=== PATIENT | male | born 1955 | race Caucasian/White ===

== ENCOUNTER 2018-12-03 07:01 | Day surgery (SDC) | payer BC ==
[~2018-12-03] VITALS: Ht 180.3 cm; Wt 94.8 kg
[~2018-12-03 07:01] MED LIST: ALBUTEROL SULF8.5 GM INH; AMLODIPINE BESY10 MG PO; BP MED PO; CENTRUM SILVER1 EAC1 PO; CHLORDIAZEPOXID25 MG PO; CHLORTHALIDONE25 MG PO; CIALIS20 MG PO; COZAAR100 MG PO; COZAAR25 MG PO; CRUTCH1 EACH; DEPO-TESTO200 MG/1 M IM; DILAUDID2 MG PO; FISH OIL 1,0001 EAC3 PO; FISH OIL300 MG PO; HYDROCHLOROTHIA25 MG; IBUPROFEN200 MG PO; LOSARTAN POTASS50 MG PO; LOVASTATIN20 MG PO; LOVASTATIN40 MG PO; NAPROXEN375 MG PO; NORCO 10-325 T1 EACH PO; OMEPRAZOLE20 MG PO; ONDANSETRON HCL4 MG PO; PERCOCET 10-321 EACH PO; POTASSIUM CHLO10 MEQ PO; SAW PALMETTO500 MG PO; SAW PALMETTO80 MG PO; TRAZODONE HCL50 MG PO; TYLENOL WITH C1 EACH; TYLENOL325 MG PO; VITAMIN D2000 UNIT PO; ZOFRAN ODT8 MG PO
[2018-12-03] MEDS ORDERED: DILAUDID2 MG PO (07:40)
--- NOTE | 2018-12-03 09:14 | NUR ---
12/03/18 0914 Belén Rodriguez 0903- PT ARRIVES TO PACU EASILY AROUSABLE TO VOICE. PT REPORTS NO NAUSEA, PAIN, OR DIZZINESS. RESP EVEN AND UNLABORED. OXYGEN SAT HIGH 90'S ON 2L VIA NC. 0909- OXYGEN TURNED OFF. OXYGEN SAT REMAINS HIGH 90'S ON RA. RESP EVEN AND UNLABORED. 0912- PT PASSING FLATUS.
--- NOTE | 2018-12-03 10:34 | NUR ---
PT ALERT, ORIENTED AND SUPPORTED BY HIS BENI. PT RECENTLY HAD AN EGD, AND STILL HAVING DISCOMFORT. PREP DEALT WITH WELL, NO OTHER CONCERNS. PT DID REQUEST PRAYER. WILL FOLLOW NEEDED
--- NOTE | 2018-12-05 11:43 | OR ---
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 POSTOPERATIVE DIAGNOSES: 1. Sigmoid diverticulosis. 2. No evidence of colitis or ileitis. PROCEDURE: Total colonoscopy to cecum with intubation of the ileum and multiple biopsies. ANESTHESIA: Intravenous sedation, fentanyl 150 mcg and versed 5 mg. INDICATION: This 63-year-old white man is a patient of MONISHA Waller and has seen Dr. Melecio Rivero for cholecystectomy in the past. 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 Endoscopic ultrasound by Dr. Scar Darnell at [facility] has shown multiple small cysts of the head of the pancreas. His CA-19-9 is normal and he has not thought likely to have neoplasm of the pancreas. He does have persistent diarrhea and although he has been treated with pancreatic enzyme, replacement therapy is only marginally improved. Further evaluation and treatment are anticipated at [facility] in the near future. A colonoscopy was recommended to ascertain that his diarrhea is not related to other underlying pathology. He has had colonoscopy in the past. The risks of bleeding, infection, perforation, and other unforeseen complications related to colonoscopy were reviewed in detail. He understands and wished to proceed. FINDINGS: The prep was good. Complete colonoscopy was undertaken of the cecum. Intubation of the ileum was undertaken and passage of the scope to about 10 cm beyond the ileocecal valve was noted. The ileum appeared normal. Biopsies were obtained nevertheless. Biopsies were additionally taken of the cecum and rectum. The remaining colon was free of polyps, cancer, or obvious colitis, though he had numerous diverticula of the sigmoid and left colon. Biopsies were obtained to ascertain there was no sign of lymphocytic Electronically Signed By: AZUL SMITH MD 12/05/18 1143 PATIENT NAME: JIA SOTO OPERATIVE REPORT DATE OF : 59 REPORT #: [id number] PHYSICIAN: AZUL SMITH MD PCP: ELIJAH OLIVAS REPORT IS CONFIDENTIAL AND NOT TO BE RELEASED WITHOUT AUTHORIZATION [facility] [address] [place], [place] [address] Signed colitis or other less clinically obvious colitis. DESCRIPTION OF PROCEDURE: The patient was brought to the endoscopy suite and placed in lateral decubitus position given intravenous sedation to the point of slurred speech and nystagmus. Digital rectal examination was normal. An Olympus video colonoscope was passed in the rectum and manipulated throughout the colon. Numerous diverticula were seen in the sigmoid and left colon. The scope was ultimately advanced to the cecum without problem. The ileocecal valve and appendiceal orifice were normal. Scope was manipulated into the ileum without too much trouble and the ileum appeared normal including intestinal villi. There was no sign of ulceration, stricture, or other problem. Biopsies were obtained nevertheless. The scope was then withdrawn to the cecum and biopsies taken of the cecum as well. Careful withdrawal of scope showed no sign of abnormality of colitis, polyps, or other issue other than numerous diverticula of the left colon and sigmoid. Retroflexed view of the rectum was normal as well. The scope was manipulated to allow for biopsy of the rectum in addition to his cecal biopsy. The scope was then removed and the patient was taken to recovery room in good condition. CONCLUDING DIAGNOSIS: Extensive diverticulosis. No evidence of colitis or ileitis. Most likely his diarrhea is related to pancreatic exocrine insufficiency after all. The patient will return to the ongoing care of MONISHA Waller as well as his [facility] team and others involved in his care previously. Azul Smith MD /MODL /[id number] cc: Dr. [facility] Dr. Landon Morrell Electronically Signed By: AZUL SMITH MD 12/05/18 1143 PATIENT NAME: JIA SOTO OPERATIVE REPORT DATE OF : 59 REPORT #: [id number] PHYSICIAN: AZUL SMITH MD PCP: ELIJAH OLIVAS REPORT IS CONFIDENTIAL AND NOT TO BE RELEASED WITHOUT AUTHORIZATION [facility] [address] [place] [address] Signed [facility] MONISHA Waller Copies: ELIJAH OLIVAS ~ Electronically Signed By: ZAUL SMITH MD 12/05/18 1143 PATIENT NAME: JIA SOTO OPERATIVE REPORT DATE OF : 59 REPORT #: [id number] PHYSICIAN: AZUL SMITH MD PCP: ELIJAH OLIVAS REPORT IS CONFIDENTIAL AND NOT TO BE RELEASED WITHOUT AUTHORIZATION
== END 2018-12-03 09:48 | disposition home or self-care (01) ==
LOC: DS 07:01 → OPS 07:01 → DS 14:15
PROVIDERS: Surgery
PROC: 0DBP8ZX Excision of Rectum, Via Natural or Artificial Opening Endoscopic, Diagnostic (ICD-10-PCS; 2018-12-03)
PROC: 0DBB8ZX Excision of Ileum, Via Natural or Artificial Opening Endoscopic, Diagnostic (ICD-10-PCS; 2018-12-03)
PROC: 0DBH8ZX Excision of Cecum, Via Natural or Artificial Opening Endoscopic, Diagnostic (ICD-10-PCS; principal; 2018-12-03 14:15)
DX: K57.31 Diverticulosis of large intestine without perforation or abscess with bleeding (principal); K86.89 Other specified diseases of pancreas; R19.7 Diarrhea, unspecified; K86.1 Other chronic pancreatitis; I10 Essential (primary) hypertension; K86.2 Cyst of pancreas; Z86.010 Personal history of colon polyps; Z88.8 Allergy status to other drugs, medicaments and biological substances
CPT/HCPCS: 99153; G0500; J2250; J3010; J7120

== ENCOUNTER 2019-03-31 04:15 | Emergency (ER) | payer BC ==
[~2019-03-31] VITALS: Ht 180.3 cm; Wt 91.6 kg
--- OUTSIDE RECORDS SUMMARY | ~2019-03-31 | XMS | Encounter Summary ---
Demographics + + + | Address | [address] | | | [place] [address] | + + + | Home Phone | | + + + | Preferred Language | Unknown | + + + | Marital Status | | + + + | Yarsanism Affiliation | CAT | + + + | Race | White | + + + | Ethnic Group | Not or | + + + Author + + + | Organization | Unknown | + + + | Address | Unknown | + + + | Phone | Unavailable | + + + Support + + + + + | Name | Relationship | Address | Phone | + + + + + | Johann Duvall | ECON | [address] | | | | | [address] | | | | | [address] | | + + + + + Care Team Providers + +------+ + | Care Culinary Intern Name | Role | Phone | + +------+ + PCP | Unavailable | + +------+ + Encounter Details +--------+ + + + + | Date | Type | Department | Care Team | Description | +--------+ + + + + | 09/14/ | Procedure - | | Record, Operation | Operative Report | | 1998 | | | | | | | Transcribed | | | | +--------+ + + + + Social History + +-------+ +--------+------+ | Tobacco Use | Types | Packs/Day | Years | Date | | | | | Used | | + +-------+ +--------+------+ | Never Assessed | | | | | + +-------+ +--------+------+ + + + | Sex Assigned at | Date Recorded | | | | + + + | Not on file | | + + + + + + + | Job Start Date | Occupation | Industry | + + + + | Not on file | Not on file | Not on file | + + + + + + + + | Travel History | Travel Start | Travel End | + + + + + + | No recent travel history available. | + + documented as of this encounter Plan of Treatment Not on filedocumented as of this encounter Procedures + +--------+ + + + | Procedure Name | Priori | Date/Time | Associated Diagnosis | Comments | | | ty | | | | + +--------+ + + + | OPERATION RECORD | | 09/14/1998 | | Results for this | | | | | | procedure are in the | | | | | | results section. | + +--------+ + + + documented in this encounter Results OPERATION RECORD (09/14/1998) + + | Transcriptions | + + | Interface, Orchard Worker In - 11/09/2006 5:09 AM PST | | [facility] [facility] | | [place], [place] [address] [place] | | [facility] HospitalOPERATION RECORDMed Rec No.: [id number] Date: | | 09/14/1998Name: Eden DuvallCHASITY SURGEON: Dahiana Timmons, | | Joana Auto Clocks Repairer, | | Ophthalmology Ph: [phone] Fax: | | [phone]: Benny Moore M.D. 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 2. Status post | | right inferioroblique myectomy.OPERATIONS PERFORMED: 1. Right | | Baljit-Yariel procedure (rightsuperior oblique | | tendon). 2. Left inferior rectus recession3.0 | | mm.SPECIMEN(S) REMOVED: None.PROCEDURE: After | | informed consent had beenobtained, Mr. Duvall was brought to the Operating Room | | and smoothly inducedunder general laryngeal mask airway anesthesia. Both eyes were | | prepped anddraped in the usual sterile fashion. Forced ductions were performed | | andthere was no resistance to elevation into adduction of either eye. Theleft eye | | was taped closed. A lid speculum was placed to part the righteyelids.A | | superotemporal conjunctival incision was made 8 mm posterior to thelimbus. | | Tenon's was opened perpendicular to the limbus, and a small hookwas used to gently | | engage the temporal pole of the superior rectus muscle.This was isolated on a Repton | | hook. Conjunctiva was opened further overthe muscle, and anterior Tenon's was gently | | removed using sharp dissection.The lid speculum was removed. A Desmarres retractor | | was used to open thequadrant. The eye was infraducted and adducted. The Desmarres was | | used toopen the quadrant along the temporal border of the superior rectus. Greatcare | | was taken to clean over the top of the muscle, but not disrupt thesuperior oblique. | | The superior oblique tendon was identified and 4 mm wereisolated on a small hook. The | | muscle was split to its insertion andposteriorly 6-8 mm total to the insertion. | | A double-armed 5-0 Mersilenewas passed under the muscle. The Ismael hook was | | removed from thesuperior rectus, and the lateral rectus was hooked from above | | through theincision. This was isolated on a Repton hook. Conjunctiva was | | pulledbackwards, and a noa 8 mm posterior to the insertion of the lateral rectuswas | | made on the sclera. The two spatula needles of the double-armedMersilene were | | then passed perpendicular to the superior border of thelateral rectus muscle via | | small scleral tunnels 8 mm posterior to theinsertion. The tendon was then | | tightened and brought over. It was tied inplace. Conjunctiva was then closed using | | interrupted 6-0 plain gut suture.Forced ductions were performed. There was slight | | resistance of elevationin adduction.Attention was then turned to the left eye where a | | fornix-based limbal flapwas fashioned over the inferior rectus. The quadrants around | | the musclewere opened using Gale scissors, and the muscle was isolated on | | aJameson hook. The muscle was cleaned back 15 mm of its intermuscularseptal and | | check ligament attachments, and released from its relationshipto the lower lid | | retractors. A double-armed 6-0 Vicryl was passed inlamellar fashion at the | | insertion, with a lock centrally and on the lateralmargins. The muscle was inserted | | from the globe and reinserted 3.0 mmposterior to the original insertion via | | shallow scleral tunnels. Themuscle was tied in place under direct visualization. | | Conjunctiva was thenclosed using interrupted 6-0 plain gut suture and was recessed 2 | | mm.At the end of the procedure, erythromycin ophthalmic ointment was appliedto each | | eye. The patient was awakened and extubated and taken to the PostAnesthesia Care Unit, | | having tolerated the procedure without complication. | | Dahiana Timmons M.D. Auto Clocks Repairer, | | Ophthalmology Ph: [phone] | | Fax: [phone]/bwD: 09/14/1998T: 09/15/1998 8:43 Acc: | |backwards, and a noa 8 mm posterior to the insertion of the lateral rectus | |was made on the sclera. The two spatula needles of the double-armed | |Mersilene were then passed perpendicular to the superior border of the | |lateral rectus muscle via small scleral tunnels 8 mm posterior to the | |insertion. The tendon was then tightened and brought over. It was tied in | |place. Conjunctiva was then closed using interrupted 6-0 plain gut suture. | |Forced ductions were performed. There was slight resistance of elevation | |in adduction. | | | |Attention was then turned to the left eye where a fornix-based limbal flap | |was fashioned over the inferior rectus. The quadrants around the muscle | |were opened using Gale scissors, and the muscle was isolated on a | |Ismael hook. The muscle was cleaned back 15 mm of its intermuscular | |septal and check ligament attachments, and released from its relationship | |to the lower lid retractors. A double-armed 6-0 Vicryl was passed in | |lamellar fashion at the insertion, with a lock centrally and on the lateral | |margins. The muscle was inserted from the globe and reinserted 3.0 mm | |posterior to the original insertion via shallow scleral tunnels. The | |muscle was tied in place under direct visualization. Conjunctiva was then | |closed using interrupted 6-0 plain gut suture and was recessed 2 mm. | | | |At the end of the procedure, erythromycin ophthalmic ointment was applied | |to each eye. The patient was awakened and extubated and taken to the Post | |Anesthesia Care Unit, having tolerated the procedure without complication. | | | | | | | | | | Dahiana Timmons M.D. | | Auto Clocks Repairer, | | Ophthalmology | | Ph: [phone] Fax: [phone] | | | |/bw | | | | A | | | |cc: | + + documented in this encounter Visit Diagnoses Not on filedocumented in this encounter"
--- OUTSIDE RECORDS SUMMARY | ~2019-03-31 | XMS | Encounter Summary ---
Demographics + + + | Address | [address] | | | [place] [address] | + + + | Home Phone | | + + + | Preferred Language | Unknown | + + + | Marital Status | | + + + | Judaism Affiliation | CAT | + + + | Race | White | + + + | Ethnic Group | Not or | + + + Author + + + | Author | [facility] | + + + | Organization | [facility] | + + + | Address | Unknown | + + + | Phone | Unavailable | + + + Support + + + + + | Name | Relationship | Address | Phone | + + + + + | Johann Duvall | ECON | [address] | | | | | [place] | | | | | [address] | | + + + + + Care Team Providers + +------+ + | Care Analysis Intern Name | Role | Phone | + +------+ + | Rosalind Nice | PCP | | + +------+ + Encounter Details +--------+ + + + + | Date | Type | Department | Care Team | Description | +--------+ + + + + | 02/17/ | Transcribe | Endoscopic | Transcribe | | | 2019 | Orders | Procedural Unit at | Encounter, Provider, | | | | | [facility] | MD [address] | | | | | [address] | [place] [address] | | | | | Mailcode: OC2L | | | | | | [facility] | | | | | | and Healing, | | | | | | [address] | | | | | | [place], [place] | | | | | | [address] | | | | | | [phone] | | | +--------+ + + + + Social History + +-------+ +--------+------+ | Tobacco Use | Types | Packs/Day | Years | Date | | | | | Used | | + +-------+ +--------+------+ | Never Smoker | | | | | + +-------+ +--------+------+ + +---+---+---+ | Smokeless Tobacco: | | | | | Never Used | | | | + +---+---+---+ + + +---------+ + | Alcohol Use | Drinks/Week | oz/Week | Comments | + + +---------+ + | Yes | | | 1-2 drinks per week | + + +---------+ + + + + | Sex Assigned at [...] Not on filedocumented as of this encounter Results ERCP (03/18/2019 7:54 AM PDT) + + | Specimen | + + | | + + + + + | Narrative | Performed At | + + + | MRN: | [facility] | | [id number] Date: 03/18/2019Patient Name: Jake Hunter #: | ENDOSCOPY | | [id number] of : 1955CSN: [id number] Type: | | | AmbulatoryRoom: GI 3Procedure: | | | ERCPIndications: Stent change; hx of severe abdominal | | | pain and severe diarrhea | | | (despite normalfecal elastase) since episode of | | | biliary pancraetitis in 2013; | | | no chronic panc on EUS | | | however some PD dilation; symptoms responded | | | significantly to PD stenting | | | of HOP PD strictureProviders: HOSSEIN Murphy | | | MD SCOTT (Doctor), RAUL PINTO (Nurse), | | | GENECREST BASCON | | | (Build Technician)Referring MD: HOSSEIN CHAVEZ, | | | MDRequesting Provider: Medicines: Cipro 400 mg IV, | | | Indomethacin 100 mg NE, Monitored | | | Anesthesia | | | CareComplications: No immediate | | | complications.Procedure: Pre-Anesthesia | | | Assessment: - ASA Grade | | | Assessment: II - A patient with mild | | | systemic | | | disease. - After reviewing the | | | risks and benefits, the patient | | | was deemed in satisfactory | | | condition to undergo the | | | procedure. Prior to the | | | procedure, a History and Physical with | | | airway assessment was | | | performed (see patient record), | | | and patient medications and | | | allergies were reviewed. The | | | risks and benefits of the procedure and the sedation | | | options and risks were | | | discussed. All questions were | | | answered and informed consent was obtained. After | | | reviewing the risks and | | | benefits, the patient was deemed | | | in satisfactory condition to | | | undergo the procedure. | | | Immediately prior to administration of medications, the | | | patient was re-assessed for | | | adequacy to receive | | | sedatives. The heart rate, respiratory rate, oxygen | | | saturations, blood pressure, | | | adequacy of pulmonary | | | ventilation, and response to care were monitored | | | throughout the procedure. The | | | physical status of the | | | patient was re-assessed after the | | | procedure. The Olympus | | | TJF-[id number] Duodenoscope #[id number] was | | | introduced through the mouth, | | | and advanced to the duodenum | | | and used to inject contrast into the dorsal and | | | ventral pancreatic ducts. The | | | ERCP was technically | | | difficult and complex due to unusual anatomy. The | | | patient tolerated the | | | procedure well.Estimated Blood Loss: Estimated blood loss: | | | none.Findings: A pancreatic stent was visible on the product marketing specialist | | | film. The esophagus was successfully intubated under direct | | | vision. The scope was advanced from the mouth to the | | | duodenum. The pharynx, larynx and associated structures, as | | | well as the upper GI tract, were normal. One pancreatic stent | | | originating in the pancreatic duct was emerging from the major | | | papilla. The stent was visibly patent. One stent was removed | | | from the pancreatic duct using a snare. The ventral | | | pancreatic duct was deeply cannulated with the short-nosed | | | traction sphincterotome. Contrast was injected. I personally | | | interpreted the pancreatic duct images. Ductal flow of | | | contrast was adequate. Image quality was excellent. Contrast | | | extended to the proximal pancreatic duct. The pancreatic duct was | | | markedly tortuous from the head through the genu. There was | | | segmental dilation of the MPD in the HOP 1 cm proximal to the | | | ampulla (diameter 4-5mm) ; proximal to this was a 1.5 cm | | | length stricture and marked tortuosity in the head of the | | | pancreas. Upstream, the PD was relatively normal, mildly | | | dilated to 3 mm. Advancement of the wire to the dorsal PD was | | | very challenging due to the tortuous main PD in the head and genu | | | with persistent wire advancement into side branches. There | | | was extraluminal contrast on the flouroscopy images | | | suggestive of wire RP penetration. The 0.25" visiglide wire | | | was effective in traversing the dorsal PD. Dilation of the | | | main pancreatic duct with a 4 mm balloon and a 6 mm balloon | | | dilator was successful in a layering fashion in the genu and | | | HOP. One 8.5 Fr by 15 cm Johlin pancreatic stent with no external | | | flaps and no internal flaps was placed 14 cm into the ventral | | | pancreatic duct. Clear fluid flowed through the stent. The | | | stent was in good position. I attempted to cannulate the PD | | | alongside the PD stent with a wire but was unable to keep the | | | wire in the main PD.Impression: - previously | | | placed PD stent removed - PD | | | stricture in head of the pancreas with marked main | | | PD tortuosity, it was | | | challenging to get the wire into | | | the dorsal PD due to | | | persistent side branch advancement, | | | resulting in retroperitoneal | | | contrast injection - Stricture | | | dilated to 6 mm and 85 Fr Johlin PD stent | | | placed into dorsal | | | PD - I was unable to keep a | | | 2nd wire in the main PD PD | | | alongside the PD stent to place a 2nd | | | stentRecommendation: admit to [facility] for post procedure pain | | | mgmt aggressive IVF with | | | LR Cipro x 5 days given RP | | | contrast injection D/c to home | | | once able to take po well I | | | will arrange a fu phone call in 3-4 weeks and repeat | | | ERCP in 8-12 weeksHOSSEIN Hoffman | | | MD SCOTT03/18/2019 9:47:24 AMNumber of Addenda: 0Note Initiated | | | On: 03/18/2019 7:54 [facility] Letter to: MONISHA BLACKMON | | + + + + +---------+ + + | Performing | Address | City/State/[place] [facility] Cent[facility] | Phone Number | | Organization | | | | + +---------+ + + | [facility] | | | | + +---------+ + + documented in this encounter Visit Diagnoses + + | Diagnosis | + + | Pancreatic duct stricture - Primary Other specified disease of pancreas | + + documented in this encounter
--- OUTSIDE RECORDS SUMMARY | ~2019-03-31 | XMS | Encounter Summary ---
Demographics + + + | Address | [address] | | | [place] [address] | + + + | Home Phone | | + + + | Preferred Language | Unknown | + + + | Marital Status | | + + + | Quaker Affiliation | CAT | + + + | Race | White | + + + | Ethnic Group | Not or | + + + Author + + + | Author | [facility] | + + + | Organization | [facility] | + + + | Address | Unknown | + + + | Phone | Unavailable | + + + Support + + + + + | Name | Relationship | Address | Phone | + + + + + | Johann Duvall | ECON | [address] | | | | | [place] | | | | | [address] | | + + + + + Care Team Providers + +------+ + | Care Motors Assembler Name | Role | Phone | + +------+ + | Rosalind Nice | PCP | | + +------+ + Reason for Visit + + + | Reason | Comments | + + + | Back pain | | + + + | Update from Patient | | + + + Encounter Details +--------+ + + + + | Date | Type | Department | Care Team | Description | +--------+ + + + + | 02/18/ | Telephone | [facility] | LisamercedezkirstyTraci | Back pain; Update | | 2018 | | Center at [facility] [address] | [address] | from Patient | | | | MACIEL Hui | [facility] | | | | | Mailcode: Center | [place], [place] | | | | | for [place] and | [address] | | | | | [facility] [address] | [phone] | | | | | [place], [place] | | | | | | [address] | | | | | | [phone] | | | +--------+ + + + [...] Not on filedocumented as of this encounter Visit Diagnoses Not on filedocumented in this encounter"
--- OUTSIDE RECORDS SUMMARY | ~2019-03-31 | XMS | Encounter Summary ---
Demographics + + + | Address | [address] | | | [place] [address] | + + + | Home Phone | | + + + | Preferred Language | Unknown | + + + | Marital Status | | + + + | Scientology Affiliation | CAT | + + + | Race | White | + + + | Ethnic Group | Not or | + + + Author + + + | Author | [facility] | + + + | Organization | [facility] | + + + | Address | Unknown | + + + | Phone | Unavailable | + + + Support + + + + + | Name | Relationship | Address | Phone | + + + + + | Johann Duvall | ECON | [address] | | | | | [place] | | | | | [address] | | + + + + + Care Team Providers + +------+ + | Care Manager Ob Name | Role | Phone | + +------+ + | Elijah Nice | PCP | | + +------+ + Encounter Details +--------+ + + + + | Date | Type | Department | Care Team | Description | +--------+ + + + + | 12/17/ | Inside | Endoscopic | Hossein Chavez | | | 2019 | Referral | Procedural Unit at | [facility] [address] | | | | Order | [facility] | [facility] | | | | | [address] | [place], [place] | | | | | Mailcode: OC2L | [address] | | | | | [facility] | [phone] | | | | | and Healing, | | | | | | [address] | | | | | | [place], [place] | | | | | | [address] | | | | | | [phone] | | | +--------+ + + + [...] filedocumented as of this encounter Results ERCP (01/18/2019 8:25 AM PDT) + + | Specimen | + + | | + + + + + | Narrative | Performed At | + + + | MRN: | [facility] | | [id number] Date: 01/18/2019Patient Name: Jake Hunter | ENDOSCOPY | | #: [id number] of : 1955CSN: [id number] Type: | | | AmbulatoryRoom: GI 3Procedure: | | | ERCPIndications: Abdominal pain of suspected | | | pancreatic origin, focal PD | | | dilation in the HOP, anticipated PD | | | stentingProviders: HOSSEIN CHAVEZ MD | | | (Doctor), DANIELLE XIONG RN | | | (Nurse), TRA WEST, RN (Nurse), GENECREST BASCON | | | (Animal Herder)Referring | | | MD: HOSSEIN CHAVEZ MDRequesting Provider: | | | Medicines: Indomethacin 100 mg UT, Monitored | | | Anesthesia CareComplications: No immediate | | | complications.Procedure: Pre-Anesthesia | | | Assessment: - ASA Grade | | | Assessment: II - A patient with mild | | | systemic | | | disease. - After reviewing the | | | risks and benefits, the patient | | | was deemed in satisfactory | | | condition to undergo the | | | procedure. - ASA Grade | | | Assessment: II - A patient with mild | | | systemic | | | disease. Prior to the | | | procedure, [...] The Olympus | | | [id number]-[id number] Duodenoscope #[id number] was | | | introduced through the mouth, | | | and advanced to the duodenum | | | and used to inject contrast into the dorsal and | | | ventral pancreatic ducts. The | | | ERCP was accomplished | | | without difficulty. The patient tolerated the procedure | | | well.Estimated Blood | | | Loss: Estimated blood loss: none.Findings: A neurology epilepsy physician | | | film of the abdomen was obtained. Surgical clips, consistent | | | with a previous cholecystectomy, were seen in the area of the right | | | upper quadrant of the abdomen. The esophagus was successfully | | | intubated under direct vision. The scope was advanced to a | | | normal major papilla in the descending duodenum without | | | detailed examination of the pharynx, larynx and associated | | | structures, and upper GI tract. The upper GI tract was | | | grossly normal. A 0.025 inch straight Glidewire was passed into the | | | ventral pancreatic duct. The ventral pancreatic duct was then | | | deeply cannulated with the short-nosed traction | | | sphincterotome. Contrast was injected. I personally | | | interpreted the pancreatic duct images. There was brisk flow | | | of contrast through the ducts. Image quality was excellent. | | | Contrast extended to the proximal pancreatic duct. The ventral | | | pancreatic duct in the head of the pancreas and pancreatic | | | duct in the genu of the pancreas was dilated segmentally to | | | 4-5 mm; there was some ductal irregularity in the region of | | | the HOP and genu. The PD in the body and tail were normal | | | appearing. A sphincterotome was passed with mild resistance | | | to the body across the genu. Ventral pancreatic | | | sphincterotomy was made with a traction (standard) sphincterotome. | | | There was no post-sphincterotomy bleeding. One 5 Fr by 9 cm | | | plastic pancreatic stent with a full external pigtail and a | | | single internal flap was placed into the ventral pancreatic | | | duct. Clear fluid flowed through the stent. The stent was in | | | good position.Impression: - Dilatation of the | | | ventral pancreatic duct in the head | | | and genu with mild | | | irregularity of the contour of the | | | MPD, PD sphincterotomy and PD | | | stent placed to see if his | | | abd pain symptoms respond - no | | | EUS evidence of chronic pancreatitis, hx of acute | | | biliary pancreatitis in | | | 2013 - normal fecal elastase | | | thus his diarrhea is not | | | pancreatic in origin and he has had no response to | | | pancreatic | | | enzymes - his diarrhea and abd | | | pain symptoms significantly | | | affect his quality of lifeRecommendation: - will admit for | | | post proc observation - no | | | labs needed - IVF, analgesia | | | as needed (has baseline narcotic use | | | for abd | | | pain) - I will arrange GI | | | phone call to patient in 2 weeks to | | | see if his pain has improved | | | with the PD stent; if so, | | | will bring back for repeat ERCP (dilation and stenting) | | | in 1 month; if not, will | | | arrange PD stent pull locally | | | with primary GI Dr Jamar Lam and fu with him to | | | further work up diarrhea and | | | abd pain as they are not | | | clearly related to the | | | pancreas - Cipro x 3 days for | | | panc cyst aspirationHOSSEIN CHAVEZ MD01/18/2019 10:26:34 AMNumber | | | of Addenda: 0Note Initiated On: 01/18/2019 8:25 [facility] Letter | | | to: MONISHA BLACKMON, Jamar Foreman MD, LINDSAY Cervantes | | | MD TALISHA | | + + + + +---------+ + + | Performing | Address | City/State/Zipcode | Phone Number | | Organization | | | | + +---------+ + + | [facility] | | | | + +---------+ + + EUS UPPER (01/18/2019 8:19 AM PDT) + + | Specimen | + + | | + + + + + | Narrative | Performed At | + + + | MRN: | [facility] | | [id number] Date: 01/18/2019Patient Name: Jake Hunter | ENDOSCOPY | | #: [id number] of : 1955CSN: [id number] Type: | | | AmbulatoryRoom: GI 3Procedure: Upper | | | EUSIndications: Exclusion of chronic pancreatitis; hx | | | of acute pancreatitis in | | | 2013, chronic and intermittent abd pain | | | and diarrhea; hx of cyst in | | | the HOP- unclear if | | | pseudocyst vs IPMNProviders: HOSSEIN CHAVEZ, | | | (Doctor), TRA GARCIA RN | | | (Nurse), DANIELLE XIONG RN | | | (Nurse), [employer] | | | (Animal Herder)Referring MD: HOSSEIN CHAVEZ, | | | MDRequesting Provider: Medicines: Monitored | | | Anesthesia Care, Cipro 400 mg IVComplications: No | | | immediate complications.Procedure: Pre-Anesthesia | | | Assessment: - ASA Grade | | | Assessment: II - A patient with mild | | | systemic | | | disease. Prior to the | | | procedure, [...] | procedure. The Olympus | | | [id number] Linear Echoendoscope #[id number] was | | | introduced through the mouth, | | | and advanced to the second | | | part of duodenum. The Olympus GIF-H190 Endoscope | | | #[id number] was introduced | | | through the mouth, and advanced | | | to the second part of | | | duodenum. The upper EUS was | | | accomplished without difficulty. The patient tolerated | | | the procedure well.Estimated | | | Blood Loss: Estimated blood loss: none.Findings: | | | Endoscopic Finding : Two small GEJ erosions found. The | | | exam of the stomach was otherwise normal. The major papilla | | | and examined duodenum were normal. Biopsies for histology | | | were taken with a cold forceps for evaluation of celiac | | | disease. Endosonographic Finding : Overall, the | | | pancreas is normal appearing without evidence of chronic | | | pancreatitis. There are a few non specific hyperechoic strands in the | | | genu/distal body area. The main PD measures 2.9 mm in the | | | genu, and 1.4 mm in the body of the pancreas. An | | | anechoic lesion suggestive of a cyst was identified in the pancreatic | | | head. it was compromised of 3 distinct small cysts that | | | measured 5.9, 4.6 and 9.5 mm in diameter; in total the cysts | | | together meaued 10.6 x 13.6 mm. It is not in obvious | | | communication with the pancreatic duct but is adjacent to it | | | near the ampulla. The PD inthe region measuded a maximum of | | | 4.4mm. The outer wall of the lesion was thin. There was no | | | associated mass. There was no internal debris within the fluid-filled | | | cavity. Diagnostic needle aspiration for fluid was performed. | | | Color Doppler imaging was utilized prior to needle puncture | | | to confirm a lack of significant vascular structures within | | | the needle path. Two passes were made with the 22 gauge | | | needle using a transduodenal approach. A stylet was used. The | | | amount of fluid collected was 2 mL. Sample(s) were sent for | | | amylase concentration and CEA. There was no sign of | | | significant endosonographic abnormality in the common bile | | | duct. The maximum diameter of the duct was 11 mm in the CHD | | | and it tapered to 6.5 mm in the distal | | | portion.Impression: - no evidence of chronic | | | pancreatitis, few non specific | | | hyperechoic strands, likely | | | clinically insignificanty 3 | | | small clustered cysts in the HOP near the ampulla, | | | distinct from the main PD, | | | s/p FNA for diagnosis- IPMN | | | vs pseudocyst, suspect the | | | latter - normal post op CBD | | | s/p oziel - LA Grade A reflux | | | esophagitis. - Normal major | | | papilla and examined duodenum. | | | Biopsied. - There was no sign | | | of significant pathology in the genu | | | of the pancreas, pancreatic | | | body and pancreatic tail. - A | | | cystic lesion was seen in the pancreatic head. Fine | | | needle aspiration for fluid | | | performed. - There was no sign | | | of significant pathology in the | | | common bile | | | duct.Recommendation: fu cluid | | | analysis cipro x 3 days given | | | cyst aspiration PPI | | | qday ERCP | | | now - Await path | | | results.HOSSEIN CHAVEZ MD01/18/2019 10:12:10 AMNumber of Addenda: | | | 0Note Initiated On: 01/18/2019 8:19 [facility] Letter to: ELIJAH | | | MONISHA NICE, LINDSAY WOODALL MD, Jamar Foreman MD | | + + + + +---------+ + + | Performing | Address | City/State/Zipcode | Phone Number | | Organization | | | | + +---------+ + + | [facility] | | | | + +---------+ + + documented in this encounter Visit Diagnoses + + | Diagnosis | + + | Recurrent acute pancreatitis - Primary Acute pancreatitis | + + | 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
--- OUTSIDE RECORDS SUMMARY | ~2019-03-31 | XMS | Encounter Summary ---
Demographics + + + | Address | [address] | | | [place] [address] | + + + | Home Phone | | + + + | Preferred Language | Unknown | + + + | Marital Status | | + + + | Mormonism Affiliation | CAT | + + + | Race | White | + + + | Ethnic Group | Not or | + + + Author + + + | Author | [facility] | + + + | Organization | [facility] | + + + | Address | Unknown | + + + | Phone | Unavailable | + + + Support + + + + + | Name | Relationship | Address | Phone | + + + + + | Johann Duvall | ECON | [address] | | | | | [place] | | | | | [address] | | + + + + + Care Team Providers + +------+ + | Care Creative Arts Music Therapist Name | Role | Phone | + +------+ + | Rosalind Nice | PCP | | + +------+ + Reason for Referral PROC - Dept/Practice Procedure (Routine) + +--------+ + + + + | Status | Reason | Specialty | Diagnoses / | Referred By | Referred To | | | | | Procedures | Contact | Contact | + +--------+ + + + + | Referred | | Gastroenterol | Diagnoses | [place], | [facility] | | | | ogy | Pancreatic | Traci Hoffman, | [facility] | | | | | duct | MD [address] | [address] [place] | | | | | stricture | [place] | [facility] | | | | | Procedures | [address] | Mailcode: | | | | | CONSULT TO | [place], [place] | [address] | | | | | GI | [address] | [place] | | | | | PROCEDURE: | Phone: | [address] | | | | | ERCP / | [phone] | [place], | | | | | BILIARY | Fax: | [place] [address] | | | | | [place] | [phone] | Phone: | | | | | | | [phone] | | | | | | | Fax: | | | | | | | [phone] | + +--------+ + + + + Encounter Details +--------+ + + + + | Date | Type | Department | Care Team | Description | +--------+ + + + + | 03/18/ | Insulation Mechanic | Digestive Health | Traci Brody | Pancreatic duct | | 2019 | | [facility] [address] | [facility] [place] [address] | stricture (Primary | | | | [address] | [address] | Dx) | | | | Mailcode: Center | [place], [place] | | | | | for Health and | [address] | | | | | [facility] | [phone] | | | | | [place], [place] | | | | | | [address] | | | | | | [phone] | | | +--------+ + + + + Social History + +-------+ +--------+------+ | Tobacco Use | Types | Packs/Day | Years | Date | | | | | Used | | + +-------+ +--------+------+ | Former Smoker | | | | | + [...] filedocumented as of this encounter Visit Diagnoses + + | Diagnosis | + + | 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
--- OUTSIDE RECORDS SUMMARY | ~2019-03-31 | XMS | Encounter Summary ---
Demographics + + + | Address | [address] | | | [place] [address] | + + + | Home Phone | | + + + | Preferred Language | Unknown | + + + | Marital Status | | + + + | Jainism Affiliation | CAT | + + + | Race | White | + + + | Ethnic Group | Not or | + + + Author + + + | Author | [facility] | + + + | Organization | [facility] | + + + | Address | Unknown | + + + | Phone | Unavailable | + + + Support + + + + + | Name | Relationship | Address | Phone | + + + + + | Johann Duvall | ECON | [address] | | | | | [place] | | | | | [address] | | + + + + + Care Team Providers + +------+ + | Care Business Account Manager Name | Role | Phone | + +------+ + | Rosalind Nice | PCP | | + +------+ + Reason for Visit + + + | Reason | Comments | + + + | Outside Records | DOS 01/18/19 [facility] Amylase reults; [facility]; Phone | | Received | [phone]; | + + + Encounter Details +--------+ + + + + | Date | Type | Department | Care Team | Description | +--------+ + + + + | 01/20/ | Abstract | Endoscopic | Traci Brody | Outside Records | | 2019 | | Procedural Unit at | [facility] [place] [address] [facility] | Received (DOS | | | | [place] [address] [facility] [address] | 01/18/19 [facility] | | | | [address] [facility] | [place], [place] | sis; [facility] | | | | Road Mailcode: | [address] | Diagnostics; Phone | | | | [address] [place] | [phone] | [phone]; Fax: | | | | [address] | | [phone]) | | | | [place], [place] | | | | | | [address] | | | | | | [phone] | | | +--------+ + + + [...]
--- OUTSIDE RECORDS SUMMARY | ~2019-03-31 | XMS | Encounter Summary ---
Demographics + + + | Address | [address] | | | [place] [address] | + + + | Home Phone | | + + + | Preferred Language | Unknown | + + + | Marital Status | | + + + | Sabianist Affiliation | CAT | + + + | Race | White | + + + | Ethnic Group | Not or | + + + Author + + + | Author | [facility] | + + + | Organization | [facility] | + + + | Address | Unknown | + + + | Phone | Unavailable | + + + Support + + + + + | Name | Relationship | Address | Phone | + + + + + | Johann Duvall | ECON | [address] | | | | | [place] | | | | | [address] | | + + + + + Care Team Providers + +------+ + | Care Charge Account Identification Clerk Name | Role | Phone | + +------+ + | Rosalind Nice | PCP | | + +------+ + Reason for Visit AUTH/CERT +--------+--------+ + + + + | Status | Reason | Specialty | Diagnoses / | Referred By | Referred To | | | | | Procedures | Contact | Contact | +--------+--------+ + + + + | | | | | | | +--------+--------+ + + + + Encounter Details +--------+ + + + + | Date | Type | Department | Care Team | Description | +--------+ + + + + | 01/18/ | Hospital | [place] [id number] | Traci Chavez | | | 2019 - | Encounter | [address] | MD [place] [address] | | | | | [facility] | [address] | | | 01/19/ | | [facility] [place], | [place], [place] | | | 2018 | | [place] [address] | [address] | | | | | [phone] | [phone] | | | | | | | | | | | | Renee Abad MD | | | | | | [address] | | | | | | [place], | | | | | | [place] [address] | | | | | | [phone] | | | | | | | | +--------+ + + [...] + + documented as of this encounter Last Filed Vital Signs + + + + + | Vital Sign | Reading | Time Taken | Comments | + + + + + | Blood Pressure | 152/81 | 01/19/2019 8:59 AM | | | | | PDT | | + + + + + | Pulse | 57 | 01/19/2019 8:59 AM | | | | | PDT | | + + + + + | Temperature | 36.6 C (97.9 F) | 01/19/2019 8:01 AM | | | | | PDT | | + + + + + | Respiratory Rate | 18 | 01/19/2019 8:59 AM | | | | | PDT | | + + + + + | Oxygen Saturation | 97% | 01/19/2019 9:02 AM | | | | | PDT | | + + + + + | Inhaled Oxygen | - | - | | | Concentration | | | | + + + + + | Weight | 93 kg (205 lb) | 01/18/2019 8:16 AM | | | | | PDT | | + + + + + | Height | 180.3 cm (5' 11") | 01/18/2019 8:16 AM | | | | | PDT | | + + + + + | Body Mass Index | 28.59 | 01/18/2019 8:16 AM | | | | | PDT | | + + + + + documented in this encounter Discharge Summaries Renee Abad MD - 01/19/2019 10:39 AM PDTFormatting of this note might be different from t he original. Clinical Hospitalist Service Discharge Summary [facility] Discharging Provider: Chantal Abad MD Discharging Attending Physician: Chantal Abad MD PCP: MONISHA Waller Admission Date: 01/18/2019 Discharge Date: 01/19/2019 Hospital Stay: 1 day(s) Discharge Disposition: Home Reason for Admission: 63 yo M with history of pancreatitis (2013) c/b chronic diarrhea and intermittent abdominal pain, HTN, BPH who presented for ERCP now admitted for post-ERCP monitoring. See admission note for full details of the initial history, exam, and data. Diagnoses: Patients Hospital Problem List: Active Hospital Problems 1) H/O acute pancreatitis 2) Pancreatic cyst 3) Hyperlipidemia 4) GERD (gastroesophageal reflux disease) 5) Diarrhea 6) HTN (hypertension) 7) Hypercarbia Procedures: EUS EGD Consultants (service/attending name): GI/Dr. Chavez Hospital Course by Problem: # Acute hypercarbic respiratory failure # Somnolence On intial examination he was mildly somnolent, but was mentating well and protecting his ai rway. VBG with respiratory acidosis. Received several pushes of IV dilaudid in PACU prior to transfer to the floor which was the likely cause of his somnolence and hypercarbia. Held al l opioids. Repeat VBG with improving pCO2. Did not require narcan. Overnight developed incre asing abdominal pain and given his improvement in respiratory status and mentation, low dose oral dilaudid was initiated. Continuous pulse oximetry kept on overnight as well. In mornin g, patient was back to his baseline and mentating well. Abdominal pain well controlled with oral dilaudid and he was instructed to continued his home dilaudid for prn pain control. - narcan kit ordered at discharge # Post-ERCP # Chronic diarrhea ERCP and EUS uncomplicated. Stent placed to pancreatic duct and duodenal biopsy taken. Was kept on LR maintenance fluids overnight and immediately was tolerating regular diet. Was sta rted on ciprofloxacin per GI for infection prophylaxis given pancreatic cyst aspiration. - complete ciprofloxacin 500 mg q 12 x 3 days - GI to call patient re pathology results after discharge # Sinus bradycardia # 1st deg AVB Bradycardic at baseline, although HR 40s is lower than usual. Suspect due to sedation from opioids. Held home antihypertensive overnight. In morning HR 50-60s, thus coreg discontinued at discharge. # HTN Normotensive and bradycardic to 40s on admission. EKG with sinus cheryl and 1st deg AVB. HTN meds held overnight. Restarted amlodipine and losartan at discharge. Coreg discontinued for persistent bradycardia (per review of outside clinic notes, he has been bradycardic to 50s consistently) Summary of items for PCP follow up: 1) BP off of carvedilol 2) GI regarding pathology results Outstanding or Pending Labs/Studies: Duodenal bx 01/18/19 Pertinent/significant findings as above in hospital course. See [facility] for additional details of labs, imaging, and other studies. EUS and ERCP done today EUS Impression: - no evidence of chronic pancreatitis, few non specific hyperechoic strands, likely clinically insignificanty 3 small clustered cysts in the HOP near the ampulla, distinct from the main PD, s/p FNA for diagnosis- IPMN vs pseudocyst, suspect the latter - normal post op CBD s/p oziel - LA Grade A reflux esophagitis. - Normal major papilla and examined duodenum. Biopsied. - There was no sign of significant pathology in the genu of the pancreas, pancreatic body and pancreatic tail. - A cystic lesion was seen in the pancreatic head. Fine needle aspiration for fluid performed. - There was no sign of significant pathology in the common bile duct. Recommendation: fu cluid analysis cipro x 3 days given cyst aspiration PPI qday ERCP now - Await path results. ERCP: Impression: - Dilatation of the ventral pancreatic duct in the head and genu with mild irregularity of the contour of the MPD, PD sphincterotomy and PD stent placed to see if his abd pain symptoms respond - no EUS evidence of chronic pancreatitis, hx of acute biliary pancreatitis in 2013 - normal fecal elastase thus his diarrhea is not pancreatic in origin and he has had no response to pancreatic enzymes - his diarrhea and abd pain symptoms significantly affect his quality of life Recommendation: - will admit for post proc observation - no labs needed - IVF, analgesia as needed (has baseline narcotic use for abd pain) - I will arrange GI phone call to patient in 2 weeks to see if his pain has improved with the PD stent; if so, will bring back for repeat ERCP (dilation and stenting) in 1 month; if not, will arrange PD stent pull locally with primary GI Dr Jamar Lam and fu with him to further work up diarrhea and abd pain as they are not clearly related to the pancreas - Cipro x 3 days for panc cyst aspiration Discharge Medications: Medication List START taking these medications acetaminophen 325 mg Tab Commonly known as: TYLENOL Take 2 tablets by mouth every four hours as needed. ciprofloxacin HCl 500 mg Tab Commonly known as: CIPRO Take 1 tablet by mouth two times daily. Indications: abdominal infection, post-ERCP prophyl axis lidocaine 5 % Ptmd Commonly known as: LIDODERM Apply 1 patch to skin every twenty-four hours. Patch may remain in place for up to 12 hours in any 24-hour period. naloxone 4 mg/actuation [place] Instill into nostril for opioid overdose. Repeat with second device into other nostril afte r 2-3 minutes if no or minimal response. CONTINUE taking these medications amLODIPine 10 mg Tab Commonly known as: NORVASC Take 10 mg by mouth. cholecalciferol 400 unit Tab Commonly known as: VITAMIN D-3 Take 1,000 Units by mouth once daily. CITRUCEL ORAL Take by mouth as needed. DILAUDID ORAL Take 2 mg by mouth as needed. FISH OIL 340-1,000 mg Cap Generic drug: Fish Oil-[place]-3 Fatty Acids Take 2,000 mg by mouth. IMODIUM ORAL Take by mouth as needed. losartan 100 mg Tab Commonly known as: COZAAR Take 100 mg by mouth. Melatonin 5 mg Tab Take 10 mg by mouth. MULTIVITAMIN-AMINO ACIDS ORAL Take by mouth. omeprazole 20 mg Cpdr Commonly known as: PRILOSEC Take 20 mg by mouth. ondansetron ODT 4 mg Tbdi Commonly known as: ZOFRAN ODT Dissolve 4 mg on tongue and swallow. Saw Ragan 500 mg Cap Take by mouth. sildenafil 100 mg Tab Commonly known as: VIAGRA Take 100 mg by mouth. STOP taking these medications carvedilol 25 mg Tab Commonly known as: COREG Rationale for Medication Changes: Carvedilol - Sinus bradycardia Allergies: Allergies Allergen Reactions Chlorthalidone Unknown Pancreatitis Code Status: Full POLST completed: no Additional Instructions: Condition on Discharge Good Diet Regular Regular diet- There are no restrictions to your diet. You may eat or drink whatever you pr efer, though healthy food choices are recommended. Activity No activity restrictions Follow Up: Schedule the following appointment(s) when you get home MONISHA WALLER . Specialty: Physician Microbiology Manager Contact information [address] [facility] [place] [id number] Discharge Physical Exam: Last 24 hour min/max Temp: 36.6 C (97.9 F) Temp Min: 36.3 C (97.3 F) Max: 36.6 C (97.9 F) Pulse: 57 Pulse Min: 49 Max: 59 Resp: 18 Resp Min: 8 Max: 18 BP: 152/81 BP Min: 111/71 Max: 166/95 SpO2: 97 % SpO2 Min: 96 % Max: 97 % Body mass index is 28.59 kg/m. Gen WDWN man, lying in bed, awake and alert HEENT PERRL, op clear, MMM Pulm cbta, no w/c/r CV Bradycardic but rr, no m/r/g, JVP non-elevated Abd soft, nt/nd, no hsm, no r/g Ext wwp, pulses 2+, no edema Neuro Alert and oriented x4 Psych TPo linear, TCo appropriately focused Skin no rash/skin changes EPIC DEPARTMENT: Hosp ([facility]) - [id number] Place of Service: - Date of Service: 01/19/2019 [facility] [id number] Modifiers:GC Resident Involved: No Service: PRIMARY HOSPITALIST Suggested CPT: 30539 Discharge Management > 30 minute I spent more than >30 minutes [id number] with the patient of which greater than 50% was s pent on discharge coordination. Chantal Abad MD Buyers' Agent Division of Hospital Medicine [facility] documented in this encou nter Discharge Instructions Instructions Enedina Garcia RN - 01/18/2019 documented in this encounter Medications at Time of Discharge + + + +---------+ + + | Medication | Sig | Dispensed | Refills | Start | End Date | | | | | | Date | | + + + +---------+ + + | acetaminophen 325 | Take 2 tablets by | 60 | 0 | 03// | | | mg oral tablet | mouth every four | tablet | | 19 | | | | hours as needed. | | | | | + + + +---------+ + + | amino | Take by mouth. | | 0 | | | | acids/multivitamin | | | | | | | (MULTIVITAMIN-AMINO | | | | | | | ACIDS ORAL) | | | | | | + + + +---------+ + + | amLODIPine 10 mg | Take 10 mg by mouth. | | 0 | | | | oral tablet | | | | | | + + + +---------+ + + | carvedilol 25 mg | Take 25 mg by mouth. | | 0 | 05/11/20 | | | oral tablet | | | | 18 | | + + + +---------+ + + | cholecalciferol | Take 1,000 Units by | | 0 | | | | 400 unit oral tablet | mouth once daily. | | | | | + + + +---------+ + + | lidocaine 5 % | Apply 1 patch to | 5 patch | 0 | 01/20/20 | | | topical adhesive | skin every | | | 19 | | | patch,medicated | twenty-four hours. | | | | | | | Patch may remain in | | | | | | | place for up to 12 | | | | | | | hours in any 24-hour | | | | | | | period. | | | | | + + + +---------+ + + | loperamide HCl | Take by mouth as | | 0 | | | | (IMODIUM ORAL) | needed. | | | | | + + + +---------+ + + | losartan 100 mg | Take 100 mg by | | 0 | 05/11/20 | | | oral tablet | mouth. | | | 18 | | + + + +---------+ + + | Melatonin 5 mg | Take 10 mg by mouth. | | 0 | | | | oral tablet | | | | | | + + + +---------+ + + | methylcellulose | Take by mouth as | | 0 | | | | (CITRUCEL ORAL) | needed. | | | | | + + + +---------+ + + | naloxone 4 | Instill into nostril | 2 each | 0 | / | | | mg/actuation nasal | for opioid | | | 19 | | | spray,non-aerosol | overdose. Repeat | | | | | | | with second device | | | | | | | into other nostril | | | | | | | after 2-3 minutes if | | | | | | | no or minimal | | | | | | | response. | | | | | + + + +---------+ + + | omeprazole 20 mg | Take 20 mg by mouth. | | 0 | | | | oral capsule,delayed | | | | | | | release(/EC) | | | | | | + + + +---------+ + + | ondansetron ODT 4 | Dissolve 4 mg on | | 0 | | | | mg oral | tongue and swallow. | | | | | | tablet,disintegratin | | | | | | | g | | | | | | + + + +---------+ + + | Saw Ragan 500 | Take by mouth. | | 0 | | | | mg oral capsule | | | | | | + + + +---------+ + + | sildenafil 100 mg | Take 100 mg by | | 0 | | | | oral tablet | mouth. | | | | | + + + +---------+ + + documented as of this encounter Progress Notes Traci Chavez MD - 01/18/2019 10:55 AM PDTBrief GI Procedure Note 01/18/2019 GI procedure performed. Procedure(s): EUS FNA and ERCP Please refer to GI procedure note imported under Procedures tab in Chart Review for full de tails of procedure, impression and recommendations. 63 y.o. M with hx of acute biliary and post procedure pancreatitis in 2013 with: 1) multicystic lesion in head of the pancreas: in the setting of prior biliary and post [employer] pancreatitis in 2013 in which he was found to have an inflammatory mass in the HOP s/p E US FNA; the ddx for this lesion is pseudocyst vs side branch IPMN; the main PD immediately a djacent is focally dilated on prior EUS and MRCP however there are no other significant worr isome features. I suspect that the cyst is an incidental finding and differentiating betwee n pseudocyst and IPMN is clinically significant for f/u here. So we will plan to repeat EUS FNA to sample the lesion with hopes to send it for redpath evaluation of CEA and amylase. E US can also take a closer look at the main PD dilation. 2) Recurrent abdominal pain: the nature of the pain is very similar to his pancreatitis sánchez n; he notes he has had multiple subsequent admissions to 2014 with diagnosis of acute pancre atitis but we do not have access to the prior lipases t ensure that they were 3x the ULNL. At present he intermittently takes dilaudid to help with the pain but this severely limits h is active lifestyle bc he avoids traveling alone in the event he has an unpredictable increa se in the pain. It is possible that PD stricture from prior pancreatitis is the cause of hi s pain in the setting of focally dilated main PD; a trial of a PD stent may help delineate i f this is the cause of his pain. This is not a low risk situation and we discussed risks of pancreatitis and need for admission etc but he feels very desperate that he wants to try so mething. 3) intermittent severe diarrhea episodes: he has had multiple medication trials, with citru marcel being the most helpful. The diarrhea has not responded to pancreatic enzyme supplementa tion; reproted elevated 72h fecal fat; given the poor test characteristics , I will order a fecal elastase to see if his diarrhea is pancreatic in nature. He has had a colonoscopy with negative biopsies and normal TTG. No significant medications implicated Fecal elastase was normal: therefore diarrhea is not pancreatic in nature EUS and ERCP done today EUS Impression: - no evidence of chronic pancreatitis, few non specific hyperechoic strands, likely clinically insignificanty 3 small clustered cysts in the HOP near the ampulla, distinct from the main PD, s/p FNA for diagnosis- IPMN vs pseudocyst, suspect the latter - normal post op CBD s/p oziel - LA Grade A reflux esophagitis. - Normal major papilla and examined duodenum. Biopsied. - There was no sign of significant pathology in the genu of the pancreas, pancreatic body and pancreatic tail. - A cystic lesion was seen in the pancreatic head. Fine needle aspiration for fluid performed. - There was no sign of significant pathology in the common bile duct. Recommendation: fu cluid analysis cipro x 3 days given cyst aspiration PPI qday ERCP now - Await path results. ERCP: Impression: - Dilatation of the ventral pancreatic duct in the head and genu with mild irregularity of the contour of the MPD, PD sphincterotomy and PD stent placed to see if his abd pain symptoms respond - no EUS evidence of chronic pancreatitis, hx of acute biliary pancreatitis in 2013 - normal fecal elastase thus his diarrhea is not pancreatic in origin and he has had no response to pancreatic enzymes - his diarrhea and abd pain symptoms significantly affect his quality of life Recommendation: - will admit for post proc observation - no labs needed - IVF, analgesia as needed (has baseline narcotic use for abd pain) - I will arrange GI phone call to patient in 2 weeks to see if his pain has improved with the PD stent; if so, will bring back for repeat ERCP (dilation and stenting) in 1 month; if not, will arrange PD stent pull locally with primary GI Dr Jamar Lam and fu with him to further work up diarrhea and abd pain as they are not clearly related to the pancreas - Cipro x 3 days for panc cyst aspiration Traci Chavez MD Gastroenterology Pager [phone] nestjoseph, Cm Hoffman MD - 01/18/2019 8:29 AM PDTFormatting of this note might be different from the origin al. PRE PROCEDURE NOTE: MR# [id number] Subjective: Jake Duvall is a 63 y.o. male who presents today for a GI procedure. Patient History Reviewed Medications reviewed Allergies: Allergies as of 12/24/2018 - Fully Reviewed 12/16/2018 Allergen Reaction Noted Chlorthalidone Unknown 05/08/2018 Pt NPO for 12 hrs. ROS: All others negative. Objective: Vital Signs: BP 117/76 | Pulse 52 | Temp 36.4 C (97.5 F) | Resp 17 | Ht 1.803 m (5' 11") | Wt 93 kg (205 lb) | SpO2 98% | BMI 28.59 kg/m | BSA 2.16 m Neuro: Patient oriented X3. Mental status clear and intact Mallampati Score: II Neck Neck supple. No adenopathy Respiratory: negative findings: no chest deformities noted, normal diaphragmatic excursion Cardiovascular: peripheral pulses are wnl, no edema Abdomen: nontender, no masses, no organomegaly Impression Patient deemed appropriate candidate for planned procedure and sedation. ASA 2 Plan Proceed with GI procedure PARQ held and all questions addressed. Consent obtained. See procedure note 01/18/2019 documented in th is encounter Plan of Treatment Not on filedocumented as of this encounter Procedures + +--------+ + + + | Procedure Name | Priori | Date/Time | Associated Diagnosis | Comments | | | ty | | | | + +--------+ + + + | BLOOD GASES, VENOUS | Urgent | 01/18/2019 | | Results for this | | - LAB | | 4:07 PM | | procedure are in the | | | | PDT | | results section. | + +--------+ + + + | 12 LEAD ECG | Routin | 01/18/2019 | | Results for this | | | e | 3:01 PM | | procedure are in the | | | | PDT | | results section. | + +--------+ + + + | BLOOD GASES, VENOUS | Urgent | 01/18/2019 | | Results for this | | - LAB | | 2:56 PM | | procedure are in the | | | | PDT | | results section. | + +--------+ + + + | CAPILLARY BLOOD | Routin | 01/18/2019 | Pancreatic cyst | Results for this | | GLUCOSE (NO CHG), | e | 2:12 PM | | procedure are in the | | POC | | PDT | | results section. | + +--------+ + + + | LAB OTHER | Routin | 01/18/2019 | | Results for this | | | e | 10:28 AM | | procedure are in the | | | | PDT | | results section. | + +--------+ + + + | SURGICAL PATHOLOGY | Routin | 01/18/2019 | | Results for this | | | e | 9:41 AM | | procedure are in the | | | | PDT | | results section. | + +--------+ + + + | ERCP | Routin | 01/18/2019 | Recurrent acute | Results for this | | | e | 8:25 AM | pancreatitis | procedure are in the | | | | PDT | Pancreatic cyst | results section. | + +--------+ + + + | EUS UPPER | Routin | 01/18/2019 | Recurrent acute | Results for this | | | e | 8:19 AM | pancreatitis | procedure are in the | | | | PDT | Pancreatic cyst | results section. | + +--------+ + + + | GI PROCEDURE UNIT | Routin | 01/18/2019 | | Results for this | | FLUOROSCOPY | e | 8:15 AM | | procedure are in the | | | | PDT | | results section. | + +--------+ + + + | CARDIOLOGY | | 01/18/2019 | | Results for this | | | | 12:00 AM | | procedure are in the | | | | PDT | | results section. | + +--------+ + + + | CARDIOLOGY | | 01/18/2019 | | Results for this | | | | 12:00 AM | | procedure are in the | | | | PDT | | results section. | + +--------+ + + + documented in this encounter Results BLOOD GASES, VENOUS - LAB (01/18/2019 4:07 PM PDT) + +--------+ + + + | Component | Value | Ref Range | Performed | Pathologist | | | | | At | Signature | + +--------+ + + + | PH VENOUS | 7.35 | 7.35 - 7.45 | [facility] | | | | | | [facility]ORAT[facility] | | | | | | SERVICES, | | | | | | CORE | | + +--------+ + + + | PCO2 VENOUS | 55 (H) | 35 - 50 mmHg | [facility] | | | | | | LABORATORY | | | | | | SERVICES, | | | | | | CORE | | + +--------+ + + + | PO2 VENOUS | 31 | 30 - 55 mmHg | [facility] | | | | | | LABORATORY | | | | | | SERVICES, | | | | | | CORE | | + +--------+ + + + | HCO3 VENOUS | 29 (H) | 22 - 28 mmol/L | [facility] | | | | | | LABORATORY | | | | | | SERVICES, | | | | | | CORE | | + +--------+ + + + | BASE EXCESS | 2.8 | -3.0 - 3.0 | [facility] | | | VENOUS | | mmol/L | LABORATORY | | | | | | SERVICES, | | | | | | CORE | | + +--------+ + + + | O2 SAT, | 56.6 | No range has | [facility] | | | VENOUS | | been | LABORATORY | | | | | established % | SERVICES, | | | | | | CORE | | + +--------+ + + + | TOTAL CO2 | 31 (H) | 23 - 29 mmol/L | [facility] | | | VENOUS | | | LABORATORY | | | | | | SERVICES, | | | | | | CORE | | + +--------+ + + + + + | Specimen | + + | Blood | + + + + + + + | Performing | Address | City/State/Zipcode | Phone Number | | Organization | | | | + + + + + | [facility] | [address] | [place] [address] | | | SERVICES, CORE | [address] | | | + + + + + 12 LEAD ECG (01/18/2019 3:01 PM PDT) + + + + + + | Component | Value | Ref Range | Performed | Pathologist | | | | | At | Signature | + + + + + + | VENTRICULAR | 50 | bpm | [facility] | | | RATE | | | OF | | | | | | CARDIOLOGY | | + + + + + + | ATRIAL RATE | 49 | ms | [facility] | | | | | | OF | | | | | | CARDIOLOGY | | + + + + + + | P-R | 238 | ms | [facility] | | | INTERVAL | | | OF | | | | | | CARDIOLOGY | | + + + + + + | P AXIS | 42 | deg | [facility] | | | | | | OF | | | | | | CARDIOLOGY | | + + + + + + | QRS | 98 | ms | [facility] | | | DURATION | | | OF | | | | | | CARDIOLOGY | | + + + + + + | QT | 446 | ms | [facility] | | | | | | OF | | | | | | CARDIOLOGY | | + + + + + + | QTCB | 408 | ms | [facility] | | | | | | OF | | | | | | CARDIOLOGY | | + + + + + + | R AXIS | -17 | deg | [facility] | | | | | | OF | | | | | | CARDIOLOGY | | + + + + + + | T AXIS | 21 | deg | [facility] | | | | | | OF | | | | | | CARDIOLOGY | | + + + + + + | ECG | Sinus bradycardia | | [facility] | | | IMPRESSION | | | OF | | | | | | CARDIOLOGY | | + + + + + + | ECG | Prolonged MI interval | | [facility] | | | IMPRESSION | | | OF | | | | | | CARDIOLOGY | | + + + + + + | ECG | Borderline left axis | | [facility] | | | IMPRESSION | deviation | | OF | | | | | | CARDIOLOGY | | + + + + + + | ECG | Minimal ST elevation, | | [facility] | | | IMPRESSION | anterior leads- ABNORMAL | | OF | | | | ECG - | | CARDIOLOGY | | + + + + + + | ECG | Electronically signed | | [facility] | | | IMPRESSION | by: MISTI HOPKINS | | OF | | | | 01-18-2019 15:26:46 | | CARDIOLOGY | | + + + + + + + + | Specimen | + + | | + + + + + | Narrative | Performed At | + + + | | | + + + + + + + + | Performing | Address | City/State/Zipcode | Phone Number | | Organization | | | | + + + + + | [facility] | [address] | [place], [place] | | | CARDIOLOGY | [address] | [address] | | + + + + + BLOOD GASES, VENOUS - LAB (01/18/2019 2:56 PM PDT) + + + + + + | Component | Value | Ref Range | Performed | Pathologist | | | | | At | Signature | + + + + + + | PH VENOUS | 7.32 (L) | 7.35 - 7.45 | [facility] | | | | | | LABORATORY | | | | | | SERVICES, | | | | | | CORE | | + + + + + + | PCO2 VENOUS | 58 (H) | 35 - 50 mmHg | [facility] | | | | | | LABORATORY | | | | | | SERVICES, | | | | | | CORE | | + + + + + + | PO2 VENOUS | 31 | 30 - 55 mmHg | [facility] | | | | | | LABORATORY | | | | | | SERVICES, | | | | | | CORE | | + + + + + + | HCO3 VENOUS | 29 (H) | 22 - 28 mmol/L | [facility] | | | | | | LABORATORY | | | | | | SERVICES, | | | | | | CORE | | + + + + + + | BASE EXCESS | 1.7 | -3.0 - 3.0 | [facility] | | | VENOUS | | mmol/L | LABORATORY | | | | | | SERVICES, | | | | | | CORE | | + + + + + + | O2 SAT, | 60.3 | No range has | [facility] | | | VENOUS | | been | LABORATORY | | | | | established % | SERVICES, | | | | | | CORE | | + + + + + + | TOTAL CO2 | 30 (H) | 23 - 29 mmol/L | [facility] | | | VENOUS | | | LABORATORY | | | | | | SERVICES, | | | | | | CORE | | + + + + + + + + | Specimen | + + | Blood | + + + + + + + | Performing | Address | City/State/Zipcode | Phone Number | | Organization | | | | + + + + + | [facility] | [address] | [place] [address] | | | SERVICES, [place] | [address] | | | + + + + + CAPILLARY BLOOD GLUCOSE (NO CHG), POC (01/18/2019 2:12 PM PDT) + +---------+ + + + | Component | Value | Ref Range | Performed | Pathologist | | | | | At | Signature | + +---------+ + + + | BLOOD | 106 (H) | 60 - 99 mg/dL | [facility] - | | | GLUCOSE, | | | [place] | | | POC | | | [facility] | | | | | | OF CARE | | | | | | TESTS | | + +---------+ + + + + + | Specimen | + + | | + + + + + + + | Performing | Address | City/State/Zipcode | Phone Number | | Organization | | | | + + + + + | [facility] | [address] | [place], [place] | | | [facility] | [address] | [address] | | | TESTS | | | | + + + + + LAB OTHER (01/18/2019 10:28 AM PDT) + + + + + + | Component | Value | Ref Range | Performed | Pathologist | | | | | At | Signature | + + + + + + | MISC REF | CEA/Amylase, Pancreas | | [facility] | | | TEST NAME | Fluid. | | LABORATORY | | | | | | SERVICES, | | | | | | CORE | | + + + + + + | MISC REF | | | [facility] | | | TEST RESULT | Comment: | | REFERENCE | | | | AccuCea: 112 ng/mL | | LAB | | | | Amylase: 17,407 U/L | | | | | | | | | | + + + + + + | NORMAL | | | [facility] | | | RANGE | | | REFERENCE | | | | | | LAB | | + + + + + + | REFERRAL | Testing performed by: | | [facility] | | | LAB NAME | [facility] | | REFERENCE | | | | [address] | | LAB | | | | [place] [address] | | | | + + + + + + + + | Specimen | + + | Fluid | + + + + + | Narrative | Performed At | + + + | See scanned | [facility] | | report for Technical Results and further Interpretation and Comments. | REFERENCE LAB | | | | | | | + + + + + + + + | Performing | Address | City/State/Zipcode | Phone Number | | Organization | | | | + + + + + | [facility] | | | | + + + + + | [facility] | [address] | [place] [address] | | | SERVICES, CORE | [address] | | | + + + + + | [facility] | see below | | | + + + + + SURGICAL PATHOLOGY (01/18/2019 9:41 AM PDT) + + + + + + | Component | Value | Ref Range | Performed | Pathologist | | | | | At | Signature | + + + + + + | Clinical | 63 year old male with a | | [facility] | | | History | history of acute | | DEPARTMENT | | | | pancreatitis in 2013, | | [facility] | | | | how with abdominal pain | | PATHOLOGY | | | | and diarrhea. EUS shows | | | | | | no evidence of chronic | | | | | | pancreatitis, and normal | | | | | | duodenum (rule out | | | | | | sprue). | | | | + + + + + + | Final | Duodenum, biopsy: | | [facility] | Electronically | | Pathologic | Duodenal mucosa with no | | DEPARTMENT | signed by | | Diagnosis | diagnostic abnormality | | [facility] | Marybeth G | | | Case seen by:Rosa | | PATHOLOGY | MD Kari | | | MD Dave | | | on 01/20/2019 at | | | | | | 12:27 PM | | | Pathology | | | | | | ResidentPatricia | | | | | | MD Kari, PhD | | | | | | | | | | | | PathologistPathology, | | | | | | [facility] | | | | | | [facility] electronic | | | | | | signature indicates that | | | | | | I have personally | | | | | | reviewed all diagnostic | | | | | | slides, the gross and/or | | | | | | microscopic portion of | | | | | | this report and | | | | | | formulated the final | | | | | | diagnosis. | | | | + + + + + + | Gross | Received is one specimen | | [facility] | | | Description | in formalin labeled | | DEPARTMENT | | | | with the patient's name | | OF | | | | (initials RLR) and | | PATHOLOGY | | | | medical record number | | | | | | [id number].A. Duodenum, | | | | | | biopsies: Received | | | | | | labeled "DUOD biopsies | | | | | | -A" are 3 fragments of | | | | | | small soft tissue ranging | | | | | | from 0.3-0.4 cm in | | | | | | greatest dimension. | | | | | | Submitted entirely in | | | | | | A1.(ARK) | | | | + + + + + + | Ancillary | Analyte specific | | [facility] | | | Information | reagents are used in | | DEPARTMENT | | | | many laboratory tests | | OF | | | | necessary for standard | | PATHOLOGY | | | | medical care. This test | | | | | | was developed and its | | | | | | performance | | | | | | characteristics | | | | | | determined by [facility] | | | | | | laboratories. It has | | | | | | not been cleared or | | | | | | approved by the [place] Food | | | | | | and Drug Administration | | | | | | (FDA). FDA does not | | | | | | require this test to go | | | | | | through premarket FDA | | | | | | review. This test is | | | | | | used for clinical | | | | | | purposes. It should not | | | | | | be regarded as | | | | | | investigational or for | | | | | | research. This | | | | | | laboratory is certified | | | | | | under the Clinical | | | | | | Laboratory Improvement | | | | | | Amendments (CLIA) as | | | | | | qualified to perform | | | | | | high complexity clinical | | | | | | laboratory testing. | | | | + + + + + + + + | Specimen | + + | Tissue | + + + + + + + | Performing | Address | City/State/Zipcode | Phone Number | | Organization | | | | + + + + + | [facility] | [address] | [place] [address] | | | PATHOLOGY | [address] | | | + + + + + ERCP (01/18/2019 8:25 AM PDT) + + | Specimen | + + | | + + + + + | Narrative | Performed At | + + + | MRN: | [facility] | | [id number] Date: 01/18/2019Patient Name: Jake Hunter | ENDOSCOPY | | #: [id number] of : 1955CSN: [id number] Type: | | | AmbulatoryRoom: GI 3Procedure: | | | ERCPIndications: Abdominal pain of suspected | | | pancreatic origin, focal PD | | | dilation in the HOP, anticipated PD | | | stentingProviders: TRACI CHAVEZ MD | | | (Doctor), DANIELLE XIONG RN | | | (Nurse), ENEDINA GARCIA, RN (Nurse), [employer]less | | | (Tv Host)Referring | | | MD: TRACI CHAVEZ MDRequesting Provider: | | | Medicines: Indomethacin 100 mg MI, Monitored | | | Anesthesia CareComplications: No [...] The Olympus | | | TJF-[id number] Duodenoscope #[id number] was | | | introduced through the [...] | Loss: Estimated blood loss: none.Findings: A complaint evaluation officer | | | film of the abdomen [...] days for | | | panc cyst aspirationTRACI CHAVEZ MD01/18/2019 10:26:34 AMNumber | | | of Addenda: 0Note Initiated On: 01/18/2019 8:25 [facility] Letter | | | to: MONISHA WALLER, Jamar Foreman MD, LINDSAY Cervantes | | [...] + | MRN: | [facility] | | [id number] Date: 01/18/2019Patient Name: Jake Hunter | ENDOSCOPY | | #: [id number] of : 1955CSN: [id number] Type: | | | AmbulatoryRoom: GI 3Procedure: Upper | | | EUSIndications: Exclusion of chronic pancreatitis; hx | | | of acute pancreatitis in | | | 2013, chronic and intermittent abd pain | | | and diarrhea; hx of cyst in | | | the HOP- unclear if | | | pseudocyst vs IPMNProviders: TRACI CHAVEZ, | | | (Doctor), ENEDINA GARCIA RN | | | (Nurse), DANIELLE XIONG RN | | | (Nurse), GENEGlobili | | | (Tv Host)Referring MD: TRACI CHAVEZ, | | | MDRequesting Provider: Medicines: [...] | procedure. The Olympus | | | [id number] Linear Echoendoscope #[id number] was | | | introduced through the mouth, | | | and advanced to the second | | | part of duodenum. The Olympus [id number] Endoscope | | | #[id number] was introduced | | | through the [...] now - Await path | | | results.TRACI CHAVEZ MD01/18/2019 10:12:10 AMNumber of Addenda: | | | 0Note Initiated On: 01/18/2019 8:19 [facility] Letter to: ROSALIND | | | MONISHA NICE, LINDSAY WOODALL MD, Jamar Foreman MD | | + + + + +---------+ + + | Performing | Address | City/State/Zipcode | Phone Number | | Organization | | | | + +---------+ + + | [facility] | | | | + +---------+ + + GI PROCEDURE UNIT FLUOROSCOPY (01/18/2019 8:15 AM PDT) + + | Specimen | + + | | + + + + + | Narrative | Performed At | + + + | See GI procedure for results. | | + + + CARDIOLOGY (01/18/2019 12:00 AM PDT) + + + | Narrative | Performed At | + + + | | | + + + CARDIOLOGY (01/18/2019 12:00 AM PDT) + + + | Narrative | Performed At | + + + | | | + + + documented in this encounter Visit Diagnoses + + | Diagnosis | + + | Pancreatic cyst - Primary Cyst and pseudocyst of pancreas | + + | Recurrent acute pancreatitis Acute pancreatitis | + + documented in this encounter Administered Medications + +--------+ +--------+------+------+ | Medication Order | MAR | Action | Dose | Rate | Site | | | Action | Date | | | | + +--------+ +--------+------+------+ | acetaminophen (TYLENOL) tablet | Given | 01/20/20 | 650 mg | | | | 650 mg 650 mg, oral, EVERY 4 | | 19 3:53 | | | | | HOURS NEEDED, Starting Mon | | AM PDT | | | | | 01/18/19 at 0947, Until Tue | | | | | | | 01/19/19 at 1640, mild pain, first | | | | | | | line, multimodal pain control | | | | | | + +--------+ +--------+------+------+ +-------+ +--------+---+---+ | Given | 01/19/20 | 650 mg | | | | | 19 11:38 | | | | | | PM PDT | | | | +-------+ +--------+---+---+ | Given | 01/19/20 | 650 mg | | | | | 19 6:30 | | | | | | PM PDT | | | | +-------+ +--------+---+---+ + +---+ | | | + +---+ | bisacodyl (DULCOLAX) | | | suppository 10 mg 10 mg, rectal, | | | DAILY NEEDED, Starting Mon | | | 01/18/19 at 0946, Until Tue | | | 01/19/19 at 1640, 2nd line for no | | | BM for 2 days or if no response | | | to MIRALAX or if patient unable | | | to tolerate oral | | + +---+ | | | + +---+ + +-------+ +--------+---+---+ | ciprofloxacin HCl (CIPRO) | Given | 01/20/20 | 500 mg | | | | tablet 500 mg 500 mg, oral, | | 19 8:58 | | | | | TWICE DAILY, 6 doses, First dose | | AM PDT | | | | | on Fri01/18/19 at 2100, Last dose | | | | | | | on Reshma 01/21/19 at 0900 | | | | | | + +-------+ +--------+---+---+ +-------+ +--------+---+---+ | Given | 01/19/20 | 500 mg | | | | | 19 8:03 | | | | | | PM PDT | | | | +-------+ +--------+---+---+ + +---+ | | | + +---+ | dextrose 50 % in water IV 25 mL | | | 25 mL, intravenous, NEEDED, | | | Starting 01/18/19 at 1406, | | | Until 01/19/19 at 1640, CBG | | | less than 70 mg/dL if patient | | | unable to take PO, per Adult | | | Hypoglycemia Protocol | | + +---+ | | | + +---+ | glucagon (GLUCAGEN) injection 1 | | | mg 1 mg, intramuscular, | | | NEEDED, Starting 01/18/19 at | | | 1406, Until 01/19/19 at 1640, | | | CBG less than 70 mg/dL per Adult | | | Hypoglycemia Protocol | | + +---+ | | | + +---+ | glucose chewable tablet 16 g | | | 16 g, oral, NEEDED, Starting | | | 01/18/19 at 1406, Until Tue | | | 01/19/19 at 1640, CBG less than 70 | | | mg/dL per Adult Hypoglycemia | | | Protocol | | + +---+ | | | + +---+ + +-------+ +--------+---+---+ | HYDROmorphone (DILAUDID) | Given | 01/19/20 | 0.2 mg | | | | injection 0.2 mg 0.2 mg, | | 19 10:39 | | | | | intravenous, EVERY 2 HOURS | | AM PDT | | | | | NEEDED, Starting Fri01/18/19 at | | | | | | | 0948, Until Fri01/18/19 at 1406, | | | | | | | for severe pain not responsive to | | | | | | | oral dilaudid | | | | | | + +-------+ +--------+---+---+ +-------+ +--------+---+---+ | Given | 01/19/20 | 0.2 mg | | | | | 19 10:29 | | | | | | AM PDT | | | | +-------+ +--------+---+---+ | Given | 01/19/20 | 0.2 mg | | | | | 19 10:19 | | | | | | AM PDT | | | | +-------+ +--------+---+---+ +---+---+ | | | +---+---+ + +-------+ +------+---+---+ | HYDROmorphone (DILAUDID) | Given | 01/19/20 | 1 mg | | | | injection 1 mg 1 mg, | | 19 10:56 | | | | | intravenous, ONCE, 1 dose, Mon | | AM PDT | | | | | 01/18/19 at 1130 | | | | | | + +-------+ +------+---+---+ + +---+ | | | + +---+ | HYDROmorphone (DILAUDID) | | | injection 1 dose, Starting Mon | | | 01/18/19 at 1005, Until Mon | | | 01/18/19 at 1009 | | + +---+ | | | + +---+ + +-------+ +--------+---+---+ | HYDROmorphone (DILAUDID) | Given | 01/19/20 | 0.5 mg | | | | injection 1 dose, Starting Mon | | 19 12:01 | | | | | 01/18/19 at 1200, Until Mon | | PM PDT | | | | | 01/18/19 at 1201 | | | | | | + +-------+ +--------+---+---+ +---+---+ | | | +---+---+ + +-------+ +------+---+---+ | HYDROmorphone (DILAUDID) tablet | Given | 01/20/20 | 2 mg | | | | 2 mg 2 mg, oral, EVERY 4 HOURS | | 19 6:55 | | | | | NEEDED, Starting 01/18/19 | | AM PDT | | | | | at 1819, Until 01/19/19 at | | | | | | | 0715, moderate pain, hold for | | | | | | | sedation | | | | | | + +-------+ +------+---+---+ +-------+ +------+---+---+ | Given | 01/19/20 | 2 mg | | | | | 19 6:56 | | | | | | PM PDT | | | | +-------+ +------+---+---+ + +---+ | | | + +---+ | HYDROmorphone (DILAUDID) tablet | | | 2-4 mg 2-4 mg, oral, EVERY 4 | | | HOURS NEEDED, Starting Tue | | | 01/19/19 at 0715, Until Tue | | | 01/19/19 at 1640, moderate pain, | | | hold for sedation | | + +---+ | | | + +---+ + +-------+ +--------+---+---+ | indomethacin (INDOCIN) | Given | 01/19/20 | 100 mg | | | | suppository 100 mg 100 mg, | | 19 8:44 | | | | | rectal, ONCE, 1 dose, 01/18/19 | | AM PDT | | | | | at 0830 | | | | | | + +-------+ +--------+---+---+ +---+---+ | | | +---+---+ + +-------+ +------+---+---+ | iohexol (OMNIPAQUE) 300 mg | Given | 01/19/20 | 8 mL | | | | iodine/mL INTRAPROCEDURE PRN, | | 19 9:32 | | | | | Starting 01/18/19 at 0932, | | AM PDT | | | | | Until 01/18/19 at 0932 | | | | | | + +-------+ +------+---+---+ +---+---+ | | | +---+---+ + +---------+ + + +---+ | lactated ringers IV 50 mL/hr, | New Bag | 01/19/20 | 50 mL/hr | 50 mL/hr | | | intravenous, CONTINUOUS, Starting | | 19 11:01 | | | | | 01/18/19 at 0830, Until Mon | | AM PDT | | | | | 01/18/19 at 1338 | | | | | | + +---------+ + + +---+ +---------+ + + +---+ | New Bag | 01/19/20 | | | | | | 19 9:48 | | | | | | AM PDT | | | | +---------+ + + +---+ | New Bag | 01/19/20 | 50 mL/hr | 50 mL/hr | | | | 19 8:27 | | | | | | AM PDT | | | | +---------+ + + +---+ +---+---+ | | | +---+---+ + +---------+ +-------+-------+---+ | lactated ringers IV 200 mL/hr, | New Bag | 01/20/20 | 200 | 200 | | | intravenous, CONTINUOUS, | | 19 4:48 | mL/hr | mL/hr | | | Starting 01/18/19 at 1030, | | AM PDT | | | | | Until 01/19/19 at 0833 | | | | | | + +---------+ +-------+-------+---+ + + +-------+-------+---+ | Rate/Dose Verify | 01/20/20 | 200 | 200 | | | | 19 4:45 | mL/hr | mL/hr | | | | AM PDT | | | | + + +-------+-------+---+ | New Bag | 01/20/20 | 200 | 200 | | | | 19 12:04 | mL/hr | mL/hr | | | | AM PDT | | | | + + +-------+-------+---+ +---+---+ | | | +---+---+ + + + +---------+---+---------+ | lidocaine (LIDODERM) 5 % patch | Applied | 01/20/20 | 1 patch | | Abdomen | | 1 patch 1 patch, transdermal, | Patch | 19 10:13 | | | | | EVERY 24 HOURS, First dose on Mon | | AM PDT | | | | | 01/18/19 at 1030, Until | | | | | | | Discontinued | | | | | | + + + +---------+---+---------+ + + +---------+---+---------+ | Applied Patch | 01/19/20 | 1 patch | | Abdomen | | | 19 2:17 | | | | | | PM PDT | | | | + + +---------+---+---------+ + +---+ | | | + +---+ | melatonin tablet 3 mg 3 mg, | | | oral, AT BEDTIME NEEDED, | | | Starting Fri01/18/19 at 0946, | | | Until Fri01/19/19 at 1640, | | | insomnia | | + +---+ | | | + +---+ | naloxone (NARCAN) injection | | | intravenous, NEEDED, Starting | | | Fri01/18/19 at 1538, Until Fri | | | 01/19/19 at 1640, over sedation | | + +---+ | | | + +---+ + +-------+ +-------+---+---+ | omeprazole (PRILOSEC) capsule | Given | 01/20/20 | 20 mg | | | | 20 mg 20 mg, oral, BEFORE | | 19 5:57 | | | | | BREAKFAST, First dose on Fri | | AM PDT | | | | | 01/19/19 at 0630, Until | | | | | | | Discontinued | | | | | | + +-------+ +-------+---+---+ + +---+ | | | + +---+ | ondansetron (ZOFRAN) tablet 8 | | | mg 8 mg, oral, EVERY 12 HOURS | | | NEEDED, Starting 01/18/19 at | | | 0947, Until Fri01/19/19 at 1640, | | | nausea/vomiting, first line | | + +---+ | | | + +---+ | polyethylene glycol (MIRALAX) | | | packet 34 g 34 g, feeding tube, | | | THREE TIMES DAILY NEEDED, | | | Starting 01/18/19 at 0946, | | | Until Fri01/19/19 at 1640, 1st | | | line - for no BM for 2 days | | + +---+ | | | + +---+ | prochlorperazine (COMPAZINE) | | | injection 5-10 mg 5-10 mg, | | | intravenous, EVERY 6 HOURS | | | NEEDED, Starting 01/18/19 at | | | 0947, Until e 01/19/19 at 1640, | | | nausea/vomiting not responding to | | | ondansetron and unable to take | | | oral prochlorperazine | | + +---+ | | | + +---+ | prochlorperazine (COMPAZINE) | | | tablet 5-10 mg 5-10 mg, oral, | | | EVERY 6 HOURS NEEDED, Starting | | | 01/18/19 at 0947, Until Tue | | | 01/19/19 at 1640, nausea/vomiting, | | | second line | | + +---+ | | | + +---+ + +-------+ +---------+---+---+ | promethazine (PHENERGAN) | Given | 01/19/20 | 12.5 mg | | | | injection 6.25-12.5 mg 6.25-12.5 | | 19 10:25 | | | | | mg, intravenous, POSTPROCEDURE | | AM PDT | | | | | PRN, 1 dose, Starting 01/18/19 | | | | | | | at 0933, Until 01/18/19 at | | | | | | | 1025, nausea/vomiting, 1st line | | | | | | + +-------+ +---------+---+---+ + +---+ | | | + +---+ | promethazine (PHENERGAN) | | | injection 1 dose, Starting Mon | | | 01/18/19 at 1012, Until Mon | | | 01/18/19 at 1025 | | + +---+ | | | + +---+ documented in this encounter
--- OUTSIDE RECORDS SUMMARY | ~2019-03-31 | XMS | Encounter Summary ---
Demographics + + + | Address | [address] | | | [place] [address] | + + + | Home Phone | | + + + | Preferred Language | Unknown | + + + | Marital Status | | + + + | Jew Affiliation | CAT | + + + | Race | White | + + + | Ethnic Group | Not or | + + + Author + + + | Author | [facility] | + + + | Organization | [facility] | + + + | Address | Unknown | + + + | Phone | Unavailable | + + + Support + + + + + | Name | Relationship | Address | Phone | + + + + + | Johann Duvall | ECON | [address] | | | | | [address] | | | | | [address] | | + + + + + Care Team Providers + +------+ + | Care Workers' Compensation Mediator Name | Role | Phone | + +------+ + | Rosalind Nice | PCP | | + +------+ + Reason for Visit + + + | Reason | Comments | + + + | Update from Patient | | + + + Encounter Details +--------+ + + + + | Date | Type | Department | Care Team | Description | +--------+ + + + + | 12/18/ | Telephone | [facility] | Traci Brody | Update from Patient | | 2019 | | Center at [facility] [address] | [address] | | | | | [address] | [address] | | | | | Mailcode: Center | [place], [place] | | | | | [facility] and | [address] | | | | | [facility] [address] | [phone] | | | | | [place], [place] | | | | | | [address] | | | | | | [phone] | | | +--------+ + + + [...]
--- OUTSIDE RECORDS SUMMARY | ~2019-03-31 | XMS | Encounter Summary ---
Demographics + + + | Address | [address] | | | [place] [address] | + + + | Home Phone | | + + + | Preferred Language | Unknown | + + + | Marital Status | | + + + | Zoroastrian Affiliation | CAT | + + + | Race | White | + + + | Ethnic Group | Not or | + + + Author + + + | Author | [facility] | + + + | Organization | [facility] | + + + | Address | Unknown | + + + | Phone | Unavailable | + + + Support + + + + + | Name | Relationship | Address | Phone | + + + + + | Johann Duvall | ECON | [address] | | | | | [place] | | | | | [address] | | + + + + + Care Team Providers + +------+ + | Care Elevator Starter Name | Role | Phone | + +------+ + | Rosalind Nice | PCP | | + +------+ + Reason for Visit + + + | Reason | Comments | + + + | Pre-operative | | | evaluation | | + + + Encounter Details +--------+ + + + + | Date | Type | Department | Care Team | Description | +--------+ + + + + | 03/12/ | Telephone-S | Preoperative | | Pre-operative | | 2019 | cheduled | Medicine Clinic at | | evaluation | | | | [facility] | | | | | | [address] | | | | | | Mail Code: OC8PM | | | | | | [facility] | | | | | | and Healing, | | | | | | [address] | | | | | | [place], [place] | | | | | | [address] | | | | | | [phone] | | | +--------+ + + + + Anesthesia Record + + + + + | Procedure Name | Responsible | Anesthesia Start | Anesthesia Stop Time | | | Anesthesiologist | Time | | + + + + + | ERCP | Garrett Verma DO, | 03/18/19808 | 03/18/19918 | | | MS | | | + + + + + +----+---+ + + | Da | T | Event | Comment | | te | i | | | | | m | | | | | e | | | +----+---+ + + | 05 | 0 | | | | /1 | 7 | | | | 6/ | 4 | | | | 20 | 4 | | | | 19 | | | | +----+---+ + + | | 0 | Pt. Check | Prior to anesthesia start, pt. Identified, examined, chart | | | 7 | | reviewed, PARQ held, anesthetic plan made or approved by | | | 4 | | attending anesthesiologist. NPO status confirmed as appropriate | | | 4 | | for procedure Preoperative evaluation: unchanged | +----+---+ + + | | 0 | Eq Check | Anesthesia machine checked Equipment verified | | | 7 | | | | | 5 | | | | | 4 | | | +----+---+ + + | | 0 | An Start | | | | 8 | | | | | 0 | | | | | 9 | | | +----+---+ + + | | 0 | An Start | | | | 8 | Data | | | | 0 | | | | | 9 | | | +----+---+ + + | | 0 | O2 by NC | | | | 8 | | | | | 1 | | | | | 1 | | | +----+---+ + + | | 0 | Vitals | Monitors applied Vital signs checked Patient ready for anesthesia | | | 8 | Checked | | | | 1 | | | | | 2 | | | +----+---+ + + | | 0 | Ready | | | | 8 | | | | | 1 | | | | | 4 | | | +----+---+ + + | | 0 | Abx held | Contraindicated, or not indicated for this procedure, or already | | | 8 | Medical or | receiving antibiotics | | | 1 | Surgical | | | | 5 | Reason | | +----+---+ + + | | 0 | An Data Art | Mouth breathing with introduction of GI scope, EtCO2 monitor on | | | 8 | | nasal canula not reading, visual and auditory confirmation of | | | 1 | | respiration | | | 8 | | | +----+---+ + + | | 0 | Incision | | | | 8 | | | | | 1 | | | | | 9 | | | +----+---+ + + | | 0 | Surgery end | | | | 9 | | | | | 1 | | | | | 1 | | | +----+---+ + + | | 0 | an stop | | | | 9 | data | | | | 1 | | | | | 3 | | | +----+---+ + + | | 0 | PACU Rpt | | | | 9 | Given | | | | 1 | | | | | 9 | | | +----+---+ + + | | 0 | Anesthesia | | | | 9 | End | | | | 1 | | | | | 9 | | | +----+---+ + + +------+ | Meds | +------+ + + + No medications | on file. | + + + + + | No agents on file. | + + + + | No blood administrations on file. | + + +--------+ + + + | Type | Details | Placement | Removal | +--------+ + + + | Periph | 01/18/19; 1947; iv therapy; | 01/18/191947 by | 03/18/19926 by | | eral | Right; Forearm; 20 g; Lidocaine; | Matt Rdz RN | Rosa Elena Aguilera RN | | IV | Positive; 03/18/19; 926 (not | | | | | present at this visit) | | | +--------+ + + + | Periph | 03/18/19; 732; Roas Elena RN; Left; | 03/18/19732 by | 03/19/19 141 by | | eral | Posterior; Forearm; 22 g; Yes; | Marlys Quevedo RN | Xochilt Kwan RN | | IV | None; No; Positive; 03/19/19; | | | | | 1415 (tip intact) | | | +--------+ + + + documented in this encounter Social History + +-------+ +--------+------+ | Tobacco [...] + + documented as of this encounter Patient Instructions Patient Instructions Avril Tellez RN - 03/12/2019 11:14 AM PDTFormatting of this note angie ht be different from the original. PREOPERATIVE INSTRUCTIONS Do not eat or drink anything after midnight the night before surgery. TAKE the following medications with a sip of water on the morning of surgery: OMEPRAZOLE 20 MG CAPSULE,DELAYED RELEASE ONDANSETRON 4 MG DISINTEGRATING TABLET DILAUDID ORALAMLODIPINE 10 MG TABLET CARVEDILOL 25 MG TABLET Do NOT take the following medications on the morning of surgery: ACETAMINOPHEN 325 MG TABLET MULTIVITAMIN-AMINO ACIDS ORAL CHOLECALCIFEROL (VITAMIN D3) 400 UNIT TABLET LIDOCAINE 5 % TOPICAL PATCH IMODIUM ORAL LOSARTAN 100 MG TABLET MELATONIN 5 MG TABLET CITRUCEL ORAL SAW PALMETTO 500 MG CAPSULE SILDENAFIL 100 MG TABLET Unless Otherwise Directed by your Surgeon Do not take any Aspirin, vitamin E or non-ster oidal anti-inflammatory (NSAIDs i.e. Advil, Aleve, Ibuprofen) or herbal supplements seven da ys prior to your surgery. These drugs may interfere with normal blood clotting and may cause excessive bleeding and bruising during or after the surgery. If you are taking Coumadin (warfarin), Plavix or any other blood thinners please let you r surgical team know as medication changes will be necessary. If you need a pain medication for general purposes, use Tylenol as directed. If you are in doubt about any medications that you are taking, please contact our office . Important Guidelines Do not smoke, drink alcohol or use recreational drugs for 24 hours before your surgery Do not eat any hard candy or chew gum after midnight the night before your surgery. Watch for any change in your health condition. Let your surgeon know right away if you do not feel well. Do not wear makeup, perfume, lotions or powder. Remove any nail slovenian from at least one fingernail. Do not wear any jewelry to the hospital. Wear loose, comfortable clothing. Bring the case and solution for your contact lenses or wear your glasses. Leave all your valuables at home. Allow enough travel time so you re not late for your check in for surgery. Take a bath or shower and remember to shampoo your hair using your usual hair product be fore your arrival at the hospital. Please remember to brush your teeth the night before and the morning of your procedure. Surgery Check in Locations Day Stay Unit [facility], fourth floor Room 4515 Surgery Check in Time: Someone from your surgeon's office or [facility] will provide you with information regarding your check in time. If you have any questions about this, pl ease contact your surgeon's office. Going Home Your surgical team will decide when you are medically ready to go home. If you are released to go home on the same day as your procedure/surgery please note the following: You will not be able to drive. You will be required to have a competent adult drive you or accompany you by taxi or pub lic transportation on the day of discharge. It is also required that you have a competent adult assist you and look after you on the first night after you have undergone regional blocks (72 hours for patients going home with regional block pump), deep sedation, and/or general anesthesia. If you have questions or concerns after you go home, call your doctor s office. If it is after office hours, call the [facility] mva still operator at [phone] and ask them to page your doc tor. documented in this encounter Plan of Treatment Not on filedocumented as of this encounter Visit Diagnoses Not on filedocumented in this encounter"
--- OUTSIDE RECORDS SUMMARY | ~2019-03-31 | XMS | Encounter Summary ---
Demographics + + + | Address | [address] | | | [place] [address] | + + + | Home Phone | | + + + | Preferred Language | Unknown | + + + | Marital Status | | + + + | Oriental Orthodox Affiliation | CAT | + + + | Race | White | + + + | Ethnic Group | Not or | + + + Author + + + | Author | [facility] | + + + | Organization | [facility] | + + + | Address | Unknown | + + + | Phone | Unavailable | + + + Support + + + + + | Name | Relationship | Address | Phone | + + + + + | Johann Duvall | ECON | [address] | | | | | [place] | | | | | [address] | | + + + + + Care Team Providers + +------+ + | Care Education Teacher Name | Role | Phone | + +------+ + | Rosalind Nice | PCP | | + +------+ + Encounter Details +--------+ + + + + | Date | Type | Department | Care Team | Description | +--------+ + + + + | 03/19/ | Pharmacy | Outpatient Retail | | | | 2019 | Visit | [facility] Pharmacy | | | | | | [address] | | | | | | [facility] | | | | | | [place], [place] | | | | | | [address] | | | +--------+ + + + [...]
--- OUTSIDE RECORDS SUMMARY | ~2019-03-31 | XMS | Encounter Summary ---
Demographics + + + | Address | [address] | | | [place] [address] | + + + | Home Phone | | + + + | Preferred Language | Unknown | + + + | Marital Status | | + + + | Christian Affiliation | CAT | + + + [...] [place] | | | | | [address] | | + + + + + Care Team Providers + +------+ + | Care Parimutuel Ticket Seller Name | Role | Phone | + [...] | | evaluation | | | | [facility] | | | | | | [address] | | | | | | Mail Code: OC8PM | | | | | | [facility] | | | | | | and Healing, | | | | | | [address] | | | | | | [place], [place] | | | | | | [address] | | | | | | [phone] | | | +--------+ + + + [...] + + | Periph | 03/18/19; 732; Rosa Elena RN; Left; | 03/18/19732 by | [...] perfume, lotions or powder. Remove any nail ecuadorean from at least one fingernail. Do not [...] Surgery Check in Locations Day Stay Unit [facility], fourth floor Room 4513 Surgery Check in Time: Someone from your surgeon's office or [facility] will provide you with information regarding your [...] it is after office hours, call the [facility] machine operator cane cutter at [phone] and ask them to page your doc tor. documented in this encounter Plan of Treatment Not on filedocumented as of this encounter Visit Diagnoses Not on filedocumented in this encounter"
--- OUTSIDE RECORDS SUMMARY | ~2019-03-31 | XMS | Encounter Summary ---
Demographics + + + | Address | [address] | | | [place] [address] | + + + | Home Phone | | + + + | Preferred Language | Unknown | + + + | Marital Status | | + + + | Mu-Ism Affiliation | CAT | + + + | Race | White | + + + | Ethnic Group | Not or | + + + Author + + + | Author | [facility] | + + + | Organization | [facility] | + + + | Address | Unknown | + + + | Phone | Unavailable | + + + Support + + + + + | Name | Relationship | Address | Phone | + + + + + | Johann Duvall | ECON | [address] | | | | | [place] | | | | | [address] | | + + + + + Care Team Providers + +------+ + | Care Inventory Assistant Name | Role | Phone | + +------+ + | Rosalind Nice | PCP | | + +------+ + Reason for Visit +--------+ + | Reason | Comments | +--------+ + | Other | Questions about EUS/ERCP | +--------+ + Encounter Details +--------+ + + + + | Date | Type | Department | Care Team | Description | +--------+ + + + + | 12/24/ | Telephone | Digestive Health | Traci Brody | Other ( Questions | | 2019 | | Center at [facility] [address] | [address] | about EUS/ERCP) | | | | [address] | [facility] | | | | | Mailcode: Center | [place], [place] | | | | | for Health and | [address] | | | | | [facility] | [phone] | | | | | [place], [place] | | | | | | [address] | | | | | | [phone] | | | +--------+ + + + [...]
--- OUTSIDE RECORDS SUMMARY | ~2019-03-31 | XMS | Encounter Summary ---
Demographics + + + | Address | [address] | | | [place] [address] | + + + | Home Phone | | + + + | Preferred Language | Unknown | + + + | Marital Status | | + + + | Christian Affiliation | CAT | + + + | Race | White | + + + | Ethnic Group | Not or | + + + Author + + + | Author | [facility] | + + + | Organization | [facility] | + + + | Address | Unknown | + + + | Phone | Unavailable | + + + Support + + + + + | Name | Relationship | Address | Phone | + + + + + | Johann Duvall | ECON | [address] | | | | | [place] | | | | | [address] | | + + + + + Care Team Providers + +------+ + | Care Fiberglass Grinder Name | Role | Phone | + +------+ + | Rosalind Nice | PCP | | + +------+ + Encounter Details +--------+ + + + + | Date | Type | Department | Care Team | Description | +--------+ + + + + | 03/19/ | Transcribe | Endoscopic | Traci Brody | | | 2019 | Orders | Procedural Unit at | [address] | | | | | Debbie Wheeler [address] | [facility] | | | | | [address] [facility] | [place], [place] | | | | | Road Mailcode: | [address] | | | | | [address] | [phone] | | | | | [address] | | | | | | [place], [place] | | | | | | [address] | | | | | | [phone] | | | +--------+ + + + [...] as of this encounter Plan of Treatment +------+ +--------+ + + | Name | Type | Priori | Associated Diagnoses | Order Schedule | | | | ty | | | +------+ +--------+ + + | ERCP | Procedures | Routin | Pancreatic duct | Expected: 03/19/2019 | | | | e | stricture | | +------+ +--------+ + + documented as of this encounter Visit Diagnoses + + | Diagnosis | + + | 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
--- OUTSIDE RECORDS SUMMARY | ~2019-03-31 | XMS | Encounter Summary ---
Demographics + + + | Address | [address] | | | [place] [address] | + + + | Home Phone | | + + + | Preferred Language | Unknown | + + + | Marital Status | | + + + | Mosque Affiliation | CAT | + + + | Race | White | + + + | Ethnic Group | Not or | + + + Author + + + | Author | [facility] | + + + | Organization | [facility] | + + + | Address | Unknown | + + + | Phone | Unavailable | + + + Support + + + + + | Name | Relationship | Address | Phone | + + + + + | Johann Duvall | ECON | [address] | | | | | [place] | | | | | [address] | | + + + + + Care Team Providers + +------+ + | Care Employment Instructional Associate Name | Role | Phone | + +------+ + | Rosalind Nice | PCP | | + +------+ + Reason for Visit + + + | Reason | Comments | + + + | Medical Records | | | Review | | + + + Encounter Details +--------+ + + + + | Date | Type | Department | Care Team | Description | +--------+ + + + + | 01/22/ | Abstract | Digestive Health | Traci Brody | Medical Records | | 2019 | | Center at [facility] [address] | [address] | Review | | | | [address] | [address] | | | | | Mailcode: Center | [place], [place] | | | | | for Health and | [address] | | | | | [facility] | [phone] | | | | | [place], [place] | | | | | | [address] | | | | | | [phone] | | | +--------+ + + + [...]
--- OUTSIDE RECORDS SUMMARY | ~2019-03-31 | XMS | Encounter Summary ---
Demographics + + + | Address | [address] | | | [place] [address] | + + + | Home Phone | | + + + | Preferred Language | Unknown | + + + | Marital Status | | + + + | Judaism Affiliation | CAT | + + + | Race | White | + + + | Ethnic Group | Not or | + + + Author + + + | Author | [facility] | + + + | Organization | [facility] | + + [...] [address] [place] | | | | | [address] | | + + + + + Care Team Providers + +------+ + | Care Show Host/Hostess Name | Role | Phone | + [...] + + + + | 03/18/ | Anesthesia | Endoscopic | Garrett Verma, | | | 2019 | Event | Procedural Unit at | [address] | | | | | De[address] | [address] | | | | | [address] | [place], [place] | | | | | Road Mailcode: | [address] | | | | | [address] [facility] | [phone] | | | | | [address] | | | | | | [place], [place] | | | | | | [address] | | | | | | [phone] | | | +--------+ + + + [...] | Meds | +------+ + + + | Name | Total | + + + | midazolam | 2 mg | + + + | propofol | 125 mg | + + + | lidocaine 2% | 100 mg | + + + | propofol (DIPRIVAN) 200 mg | 781,200 mcg | + + + | glucagon | 0.5 mg | + + + | ciprofloxacin 400mg | 400 mg | + + + | lactated ringers IV | 0 mL | + + + + + | Name | + + | O2 Flow Rate (Total Liters) | + + + + | No [...] | Periph | 03/18/19; 732; Rosa Elena ABRAHAM; Left; | 03/18/19732 by | 03/19/19 141 [...] Visit Diagnoses Not on filedocumented in this encounter Administered Medications + +--------+ +--------+------+------+ | Medication Order | MAR | Action | Dose | Rate | Site | | | Action | Date | | | | + +--------+ +--------+------+------+ | ciprofloxacin (CIPRO) IV 400 | Given | 03/18/20 | 400 mg | | | | mg in D5W (RTU) intravenous, | | 19 8:59 | | | | | INTRAPROCEDURE PRN, Starting Reshma | | AM PDT | | | | | 03/18/19 at 0859, Until Reshma | | | | | | | 03/18/19 at 0913 | | | | | | + +--------+ +--------+------+------+ +---+---+ | | | +---+---+ + +-------+ +---------+---+---+ | glucagon (GLUCAGEN) injection | Given | 03/18/20 | 0.25 mg | | | | INTRAPROCEDURE PRN, Starting Reshma | | 19 8:36 | | | | | 03/18/19 at 0832, Until Reshma | | AM PDT | | | | | 03/18/19 at 0913 | | | | | | + +-------+ +---------+---+---+ +-------+ +---------+---+---+ | Given | 03/18/20 | 0.25 mg | | | | | 19 8:32 | | | | | | AM PDT | | | | +-------+ +---------+---+---+ +---+---+ | | | +---+---+ + +---------+ +---+---+---+ | lactated ringers IV 500 mL, | New Bag | 03/18/20 | | | | | intravenous, PREPROCEDURE ONCE, 1 | | 19 7:53 | | | | | dose, Starting Reshma 03/18/19 at | | AM PDT | | | | | 0708, Until Reshma 03/18/19 at 1033 | | | | | | + +---------+ +---+---+---+ +---+---+ | | | +---+---+ + +-------+ +--------+---+---+ | lidocaine (XYLOCAINE MPF) 2 % | Given | 03/18/20 | 100 mg | | | | (20 mg/mL) injection | | 19 8:15 | | | | | INTRAPROCEDURE PRN, Starting Reshma | | AM PDT | | | | | 03/18/19 at 0815, Until Reshma | | | | | | | 03/18/19 at 912 | | | | | | + +-------+ +--------+---+---+ +---+---+ | | | +---+---+ + +-------+ +------+---+---+ | midazolam (PF) (VERSED) | Given | 03/18/20 | 2 mg | | | | injection INTRAPROCEDURE PRN, | | 19 8:04 | | | | | Starting Reshma 03/18/19 at 0804, | | AM PDT | | | | | Until Reshma 03/18/19 at 09 | | | | | | + +-------+ +------+---+---+ +---+---+ | | | +---+---+ + +---------+ + +---+---+ | propofol (DIPRIVAN) 200 mg | New Bag | 03/18/20 | 150 | | | | INTRAPROCEDURE CONTINUOUS PRN, | | 19 8:15 | mcg/kg/m | | | | Starting Reshma 03/18/19 at 0815, | | AM PDT | in | | | | Until Reshma 03/18/19 at 09 | | | | | | + +---------+ + +---+---+ +---+---+ | | | +---+---+ + +-------+ +-------+---+---+ | propofol (DIPRIVAN) injection | Given | 03/18/20 | 25 mg | | | | INTRAPROCEDURE PRN, Starting Reshma | | 19 8:50 | | | | | 03/18/19 at 0815, Until Reshma | | AM PDT | | | | | 03/18/19 at 0913 | | | | | | + +-------+ +-------+---+---+ +-------+ +-------+---+---+ | Given | 03/18/20 | 25 mg | | | | | 19 8:45 | | | | | | AM PDT | | | | +-------+ +-------+---+---+ | Given | 03/18/20 | 25 mg | | | | | 19 8:22 | | | | | | AM PDT | | | | +-------+ +-------+---+---+ +---+---+ | | | +---+---+ documented in this encounter"
--- OUTSIDE RECORDS SUMMARY | ~2019-03-31 | XMS | Encounter Summary ---
Demographics + + + | Address | [address] | | | [place] [address] | + + + | Home Phone | | + + + | Preferred Language | Unknown | + + + | Marital Status | | + + + | Rastafarian Affiliation | CAT | + + + | Race | White | + + + | Ethnic Group | Not or | + + + Author + + + | Author | [facility] | + + + | Organization | [facility] | + + + | Address | Unknown | + + + | Phone | Unavailable | + + + Support + + + + + | Name | Relationship | Address | Phone | + + + + + | Johann Duvall | ECON | [address] | | | | | [place] | | | | | [address] | | + + + + + Care Team Providers + +------+ + | Care Logging Engineer Name | Role | Phone | + [...] | 2019 | | Center at [facility] [address] | [address] | Review | | | | [address] | [address] [address] | | | | | Mailcode: Center | [place], [place] | | | | | for Health and | [address] | | | | | [facility] | [phone] | | | | | [place], [place] | | | | | | [address] | | | | | | [phone] | | | +--------+ + + + [...]
--- OUTSIDE RECORDS SUMMARY | ~2019-03-31 | XMS | Encounter Summary ---
Demographics + + + | Address | [address] | | | [place] [address] | + + + | Home Phone | | + + + | Preferred Language | Unknown | + + + | Marital Status | | + + + | Confucianism Affiliation | CAT | + + + | Race | White | + + + | Ethnic Group | Not or | + + + Author + + + | Author | [facility] | + + + | Organization | [facility] | + + + | Address | Unknown | + + + | Phone | Unavailable | + + + Support + + + + + | Name | Relationship | Address | Phone | + + + + + | Johann Duvall | ECON | [address] | | | | | [address] | | | | | [address] | | + + + + + Care Team Providers + +------+ + | Care Digital Content Producer Name | Role | Phone | + +------+ + | Rosalind Nice | PCP | | + +------+ + Reason for Referral PROC - Dept/Practice Procedure (Urgent) +--------+--------+ + + + + | Status | Reason | Specialty | Diagnoses / | Referred By | Referred To | | | | | Procedures | Contact | Contact | +--------+--------+ + + + + | Closed | | Gastroenterol | Diagnoses | [place], | Gas Endo | | | | ogy | Pancreatic | Traci Hoffman, | [address] | | | | | duct | [address] | [address] | | | | | stricture | [address] | [facility] | | | | | Procedures | [facility] | Mailcode: | | | | | CONSULT TO | [place], [place] | [address] | | | | | GI | [address] | [place] | | | | | PROCEDURE: | Phone: | [address] | | | | | ERCP / | [phone] | [place], | | | | | BILIARY | Fax: | [place] [address] | | | | | MANOMETRY | [phone] | Phone: | | | | | [place] ANES UPR | | [phone] | | | | | GI NDSC PX | | Fax: | | | | | NOS [place] | | [phone] | | | | | ERCP,BIOPSY | | | | | | | UT | | | | | | | ERCP,SPHINCT | | | | | | | EROTOMY UT | | | | | | | ERCP,W/REMOV | | | | | | | AL | | | | | | | STONE,STARLA/PA | | | | | | | NCR DUCTS | | | | | | | UT ERCP | | | | | | | W/PLACE OF | | | | | | | ENDOSCOPIC | | | | | | | STENT UT | | | | | | | ERCP | | | | | | | W/REMOVAL | | | | | | | FOREIGN BODY | | | | | | | OR STENT | | | | | | | UT ERCP | | | | | | | W/REMOV AND | | | | | | | EXCHANGE OF | | | | | | | STENT UT | | | | | | | ERCP W/TRANS | | | | | | | ENDOSCOPI | | | | | | | BALLOON | | | | | | | DILATION OF | | | | | | | DUCT UT | | | | | | | ERCP | | | | | | | W/ABLATION | | | | | | | OF TUMOR | | | | | | | POLP OR | | | | | | | LESION | | | +--------+--------+ + + + + Encounter Details +--------+ + + + + | Date | Type | Department | Care Team | Description | +--------+ + + + + | 02/17/ | Telephone | Digestive Health | Traci Brody | | | 2019 | | Center at [facility] [address] | [address] | | | | | [address] | [facility] | | | | | Mailcode: Center | [place], [place] | | | | | and | [address] | | | | | [place] [address] | [phone] | | | | | [place], [place] | | | | | | [address] | | | | | | [phone] | | | +--------+ + + + [...]
--- OUTSIDE RECORDS SUMMARY | ~2019-03-31 | XMS | Encounter Summary ---
Demographics + + + | Address | [address] | | | [place] [address] | + + + | Home Phone [...] + + + | Author | [facility] | + + + | Organization | [facility] | + + + | Address | Unknown | + + + | Phone | Unavailable | + + + Support + + + + + | Name | Relationship | Address | Phone | + + + + + | Johann Duvall | ECON | [address] | | | | | [place] | | | | | [address] | | + + + + + Care Team Providers + +------+ + | Care Hand Ii Tube Bender Name | Role | Phone | + [...] | | | | Gifty Palumbo | [place], [place] | | | | | Road Mailcode: | [address] | | | | | [address] [facility] | [phone] | | | | | [address] | | | | | | [place], [place] | | | | | | [address] | | | | | | [phone] | | | +--------+ + + + [...]
--- OUTSIDE RECORDS SUMMARY | ~2019-03-31 | XMS | Encounter Summary ---
Demographics + + + | Address | [address] | | | [place] [address] | + + + | Home Phone | | + + + | Preferred Language | Unknown | + + + | Marital Status | | + + + | Pentecostalism Affiliation | CAT | + + + | Race | White | + + + | Ethnic Group | Not or | + + + Author + + + | Author | [facility] | + + + | Organization | [facility] | + + + | Address | Unknown | + + + | Phone | Unavailable | + + + Support + + + + + | Name | Relationship | Address | Phone | + + + + + | Johann Duvall | ECON | [address] | | | | | [place] | | | | | [address] | | + + + + + Care Team Providers + +------+ + | Care Pediatric Neurologist Name | Role | Phone | + +------+ + | Rosalind Nice | PCP | | + +------+ + Encounter Details +--------+------+ + + + | Date | Type | Department | Care Team | Description | +--------+------+ + + + | 12/16/ | Lab | [facility] at [facility] | | Chronic diarrhea | | 2019 | | [address] | | | | | | [place], [place] | | | | | | [address] | | | | | | [phone] | | | +--------+------+ + + + Social History + +-------+ [...] | + +--------+ + + + | PANCREATIC ELASTASE, | Routin | 12/16/2018 | Chronic diarrhea | Results for this | | STOOL | e | 2:23 PM | | procedure are in the | | | | PST | | results section. | + +--------+ + + + documented in this encounter Results PANCREATIC ELASTASE, STOOL (12/16/2018 2:23 PM PST) + + + + + + | Component | Value | Ref Range | Performed | Pathologist | | | | | At | Signature | + + + + + + | PANCREATIC | >500Comment: REFERENCE | >=201 ug/g | [facility] | | | ELASTASE-1 | INTERVAL: Pancreatic | | REG UNIV | | | | Elastase, Fecal by IGGY | | PTH - [facility] | | | | Greater than 200 | | | | | | ug/g ........ | | | | | | Normal 100-200 ug/g | | | | | | ................. | | | | | | Moderate to | | | | | | mild | | | | | | | | | | | | | | | | | | pancreatic | | | | | | insufficiency Less | | | | | | than 100 ug/g | | | | | | ........... Severe | | | | | | exocrine | | | | | | | | | | | | | | | | | | pancreatic | | | | | | insufficiency Reference | | | | | | range does not apply for | | | | | | infants less than one | | | | | | month old.Performed by | | | | | | [facility],[address] | | | | | | [address], [facility] [place] | | | | | | [address] | | | | | | [phone]. | | | | | | Reza nichole MD, | | | | | | Lab. Director | | | | + + + + + + + + | Specimen | + + | Stool | + + + + + + + | Performing | Address | City/State/Zipcode | Phone Number | | Organization | | | | + + + + + | [facility] | [address] | [place], [place] | | | UNIV P[facility] | | [address] | | + + + + + documented in this encounter Visit Diagnoses + + | Diagnosis | + + | Chronic diarrhea Diarrhea | + + documented in this encounter"
--- OUTSIDE RECORDS SUMMARY | ~2019-03-31 | XMS | Encounter Summary ---
Demographics + + + | Address | [address] | | | [place] [address] | + + + | Home Phone | | + + + | Preferred Language | Unknown | + + + | Marital Status | | + + + | Anabaptism Affiliation | CAT | + + + | Race | White | + + + | Ethnic Group | Not or | + + + Author + + + | Author | [facility] | + + + | Organization | [facility] | + + + | Address | Unknown | + + + | Phone | Unavailable | + + + Support + + + + + | Name | Relationship | Address | Phone | + + + + + | Johann Duvall | ECON | [address] | | | | | [place] | | | | | [address] | | + + + + + Care Team Providers + +------+ + | Care Data Analytics Chief Scientist Name | Role | Phone | + [...] | | 2019 | | Center at [facility] [address] | [address] | | | | | [address] | [address] | | | | | Mailcode: Center | [place], [place] | | | | | [facility] and | [address] | | | | | [facility] | [phone] | | | | | [place], [place] | | | | | | [address] | | | | | | [phone] | | | +--------+ + + + [...]
--- OUTSIDE RECORDS SUMMARY | ~2019-03-31 | XMS | Encounter Summary ---
Demographics + + + | Address | [address] | | | [place] [address] | + + + | Home Phone | | + + + | Preferred Language | Unknown | + + + | Marital Status | | + + + | Anglican Affiliation | CAT | + + + | Race | White | + + + | Ethnic Group | Not or | + + + Author + + + | Author | [facility] | + + + | Organization | [facility] | + + + | Address | Unknown | + + + | Phone | Unavailable | + + + Support + + + + + | Name | Relationship | Address | Phone | + + + + + | Johann uDvall | ECON | [address] | | | | | [place] | | | | | [address] | | + + + + + Care Team Providers + +------+ + | Care Check Writer Salesperson Name | Role | Phone | + +------+ + | Rosalind Nice | PCP | | + +------+ + Reason for Visit + + + | Reason | Comments | + + + | Outside Records | DOS 01/18/19 [facility] Amylase reults; [facility]; Phone | | Received | [phone]; | + + + Encounter Details +--------+ + + + + | Date | Type | Department | Care Team | Description | +--------+ + + + + | 01/20/ | Abstract | Endoscopic | Traci Brody | Outside Records | | 2019 | | Procedural Unit at | [address] [facility] | Received (DOS | | | | Debbie [place] [address] [facility] [address] | 01/18/19 [facility] Amylase | | | | [address] [facility] | [place], [place] | sis; [facility] | | | | Road Mailcode: | [address] | Diagnostics; Phone | | | | [address] | [phone] | [phone]; Fax: | | | | [address] | | [phone]) | | | | [place], [place] | | | | | | [address] | | | | | | [phone] | | | +--------+ + + + [...]
--- OUTSIDE RECORDS SUMMARY | ~2019-03-31 | XMS | Encounter Summary ---
Demographics + + + | Address | [address] | | | [place] [address] | + + + | Home Phone | | + + + | Preferred Language | Unknown | + + + | Marital Status | | + + + | Baptist Affiliation | 1041 | + + + | Race | Unknown | + + + | Ethnic Group | Unknown | + + + Author + + + | Author | [facility] | | | [facility] [place] | + + + | Organization | [facility] | | | and [place] | + + + | Address | Unknown | + + + | Phone | Unavailable | + + + Support + + +---------+ + | Name | Relationship | Address | Phone | + + +---------+ + | Johann Duvall | ECON | Unknown | | + + +---------+ + Care Team Providers + +------+ + | Care Land Use Planner Name | Role | Phone | + +------+ + | Dallin Baez DO | PCP | Unavailable | + +------+ + Reason for Visit + + + | Reason | Comments | + + + | Follow-up | ERCP at [facility] | + + + Encounter Details +--------+ + + + + | Date | Type | Department | Care Team | Description | +--------+ + + + + | 05/20/ | Telephone | [facility] | Jamar Foreman | Follow-up (ERCP at | | 2019 | | GASTROENTEROLOGY | [address] | [facility] ) | | | | [address] [place] | [address] [place] | | | | | [address] [place], [place] | [place] [address] | | | | | [address] | [phone] | | | | | [phone] | | | +--------+ + + + [...] + +---------+ + | Alcohol Use | Drinks/We | oz/Week | Comments | | | ek | | | + + +---------+ + | Yes | | | Seldom | + + +---------+ + + + [...]
--- OUTSIDE RECORDS SUMMARY | ~2019-03-31 | XMS | Encounter Summary ---
Demographics + + + | Address | [address] | | | [place] [address] | + + + | Home Phone [...] [place] | | | | | [address] | | + + + + + Care Team Providers + +------+ + | Care Clothes Shaker Name | Role | Phone | + [...] | Transcriptions | + + | Interface, Gas Appliance Servicer In - 11/09/2006 5:09 AM PST | | [facility] [facility] | | [place], [place] [address] [place] | | [facility] HealthOPERATION RECORDMed Rec No.: [id number] Date: | | 09/14/1998Name: Eden DuvallCHASITY SURGEON: Dahiana Timmons, | | Joana [facility], | | Ophthalmology Ph: [phone] Fax: | | [phone]: Benny Moore M.D. | | Resident, OphthalmologyPOSTOPERATIVE [...] superior rectus muscle.This was isolated on a [place] | | hook. Conjunctiva was opened further [...] through theincision. This was isolated on a [place] hook. Conjunctiva was | | pulledbackwards, and [...] without complication. | | Dahiana Timmons M.D. [facility], | | Ophthalmology Ph: [phone] | | Fax: [phone]: 09/14/1998T: 09/15/1998 8:43 Acc: | |backwards, and [...] | | Dahiana Timmons M.D. | | [facility], | | Ophthalmology | | Ph: [phone] Fax: [phone] | | | |/bw | | | | A | | | |cc: | + + documented in this encounter Visit Diagnoses Not on filedocumented in this encounter"
--- OUTSIDE RECORDS SUMMARY | ~2019-03-31 | XMS | Encounter Summary ---
Demographics + + + | Address | [address] | | | [place] [address] | + + + | Home Phone | | + + + | Preferred Language | Unknown | + + + | Marital Status | | + + + | Rastafari Affiliation | CAT | + + + | Race | White | + + + | Ethnic Group | Not or | + + + Author + + + | Author | [facility] | + + + | Organization | [facility] | + + + | Address | Unknown | + + + | Phone | Unavailable | + + + Support + + + + + | Name | Relationship | Address | Phone | + + + + + | Johann Duvall | ECON | [address] | | | | | [place] | | | | | [address] | | + + + + + Care Team Providers + +------+ + | Care Tractor Operator Battery Name | Role | Phone | + +------+ + | Rosalind Nice | PCP | | + +------+ + Reason for Visit + + + | Reason | Comments | + + + | Care Coordination | F/u 01/18/19 EUS/ERCP | + + + Encounter Details +--------+ + + + + | Date | Type | Department | Care Team | Description | +--------+ + + + + | 01/19/ | Telephone | Endoscopic | Traci Brody | Care Coordination | | 2019 | | Procedural Unit at | [address] | (F/u 01/18/19 | | | | Debbie Wheeler [address] [facility] [address] | EUS/ERCP) | | | | [address] [facility] | [place], [place] | | | | | Road Mailcode: | [address] | | | | | [address] | [phone] | | | | | [address] | | | | | | [place], [place] | | | | | | [address] | | | | | | [phone] | | | +--------+ + + + [...]
--- OUTSIDE RECORDS SUMMARY | ~2019-03-31 | XMS | Encounter Summary ---
Demographics + + + | Address | [address] | | | [place] [address] | + + + | Home Phone | | + + + | Preferred Language | Unknown | + + + | Marital Status | | + + + | Orthodox Affiliation | CAT | + + [...] [address] [place] | | | | | [address] | | + + + + + Care Team Providers + +------+ + | Care Chisel Mortiser Operator Name | Role | Phone | + +------+ + | Rosalind Nice | PCP | | + +------+ + Reason for Referral PROC - Dept/Practice Procedure (Routine) +--------+--------+ + + + + | Status | Reason | Specialty | Diagnoses / | Referred By | Referred To | | | | | Procedures | Contact | Contact | +--------+--------+ + + + + | Closed | | Gastroenterol | Diagnoses | [place], | Gas End[facility] | | | | ogy | Recurrent | Brintha K, | [address] | | | | | acute | MD [address] | [place] | | | | | pancreatitis | [place] | [facility] | | | | | Pancreatic | [facility] | Mailcode: | | | | | cyst | [place], [place] | [address] | | | | | Procedures | [address] | [place] | | | | | CONSULT TO | Phone: | [address] | | | | | GI | [phone] | [place], | | | | | PROCEDURE: | Fax: | [place] [address] | | | | | ERCP / | [phone] | Phone: | | | | | BILIARY | | [phone] | | | | | MANOMETRY | | Fax: | | | | | CONSULT TO | | [phone] | | | | | GI PROCEDURE | | | | | | | UNIT: EUA | | | | | | | UP OR LOW | | | | | | | [place] ANES UPR | | | | | | | GI NDSC PX | | | | | | | NOS [place] UPPR | | | | | | | GI ENDO W | | | | | | | FN BX, US | | | | | | | EXAM [place] | | | | | | | ERCP,BIOPSY | | | | | | | [place] | | | | | | | ERCP,SPHINCT | | | | | | | EROTOMY [place] | | | | | | | ERCP,W/REMOV | | | | | | | AL | | | | | | | STONE,STARLA/PA | | | | | | | NCR DUCTS | | | | | | | [place] ERCP | | | | | | | W/PLACE OF | | | | | | | ENDOSCOPIC | | | | | | | STENT [place] | | | | | | | ERCP | | | | | | | W/REMOVAL | | | | | | | FOREIGN BODY | | | | | | | OR STENT | | | | | | | [place] ERCP | | | | | | | W/REMOV AND | | | | | | | EXCHANGE OF | | | | | | | STENT [place] | | | | | | | ERCP W/TRANS | | | | | | | ENDOSCOPI | | | | | | | BALLOON | | | | | | | DILATION OF | | | | | | | DUCT [place] | | | | | | | ERCP | | | | | | | W/ABLATION | | | | | | | OF TUMOR | | | | | | | POLP OR | | | | | | | LESION | | | +--------+--------+ + + + + Reason for Visit + + + | Reason | Comments | + + + | New patient | | | consultation | | + + + Consultation (Routine) +--------+--------+ + + + + | Status | Reason | Specialty | Diagnoses / | Referred By | Referred To | | | | | Procedures | Contact | Contact | +--------+--------+ + + + + | Closed | | Gastroenterol | Diagnoses | [place], | Gas Faculty | | | | ogy | Recurrent | Brintha K, | [address] | | | | | acute | MD [address] | [place] [address] | | | | | pancreatitis | [place] | Mailcode: | | | | | Pancreatic | Deep[facility] Posada | [facility] | | | | | cyst | [place], [place] | Health and | | | | | Procedures | [address] | Healing, | | | | | CONSULT TO | Phone: | [address] | | | | | GASTROENTERO | [phone] | [place], [place] | | | | | LOGY | Fax: | [address] | | | | | | [phone] | Phone: | | | | | | | [phone] | | | | | | | Fax: | | | | | | | [phone] | +--------+--------+ + + + + Encounter Details +--------+---------+ + + + | Date | Type | Department | Care Team | Description | +--------+---------+ + + + | 12/16/ | Office | Dig[facility]ive [facility] | | Chronic diarrhea | | 2019 | Visit | Center at [facility] [address] | | (Primary Dx); | | | | [address] | | Recurrent acute | | | | Mailcode: Center | | pancreatitis; | | | | for Health and | | Pancreatic cyst | | | | Healing, [address] | | | | | | [place], [place] | | | | | | [address] | | | | | | [phone] | | | +--------+---------+ + + + Social History + +-------+ +--------+------+ | Tobacco Use | Types | Packs/Day | Years | Date | | | | | Used | | + +-------+ +--------+------+ | Never Smoker | | | | | + +-------+ +--------+------+ + +---+---+---+ | Smokeless Tobacco: | | | | | Never Used | | | | + +---+---+---+ + + | Tobacco Cessation: Counseling Given: No | + + + + +---------+ + | Alcohol Use [...] + + + | Blood Pressure | 132/89 | 12/16/2018 12:42 PM | | | | | PST | | + + + + + | Pulse | 57 | 12/16/2018 12:42 PM | | | | | PST | | + + + + + | Temperature | 36.7 C (98.1 F) | 12/16/2018 12:42 PM | | | | | PST | | + + + + + | Respiratory Rate | 16 | 12/16/2018 12:42 PM | | | | | PST | | + + + + + | Oxygen Saturation | - | - | | + + + + + | Inhaled Oxygen | - | - | | | Concentration | | | | + + + + + | Weight | 95.8 kg (211 lb 1.6 | 12/16/2018 12:42 PM | | | | oz) | PST | | + + + + + | Height | 180.3 cm (5' 11") | 12/16/2018 12:42 PM | | | | | PST | | + + + + + | Body Mass Index | 29.44 | 12/16/2018 12:42 PM | | | | | PST | | + + + + + documented in this encounter Patient Instructions Patient Instructions Traci Chavez MD - 12/16/2018 1:20 PM PSTJake Duvall It was nice to see you in clinic today. As we discussed in clinic, Our plan for you is: 1) I would like to recommend that we get a stool test that will allow us to have a better u nderstanding of what might be causing your abdominal pain. Please go to the lab on the f sky to submit a stool sample. 2) I would also like to recommend that we get an upper endoscopic ultrasound and possible E EQUIPMENT COORDINATOR. This will allow me to obtain some fluid from the cyst in your pancreas and I can send it for further analysis. My office will call you to schedule this appointment. 3) I'll review your previous imaging with our radiologist here and will contact you once I have the results in if it changes what we want to do. 4) Okay to stop the cholestyramine. 5) Continue to avoid any dairy products including cheese. Please feel free to call our clinic with any questions. [phone] Traci Chavez MD documented in this encounter Progress Notes Traci Chavez MD - 12/16/2018 1:20 PM PSTFormatting of this note might be differen t from the original. GI Clinic Initial Evaluation 12/16/2018 Reason for referral: 2nd opinion pancreatic cyst, abdominal pain , diarrhea PCP: MONISHA Waller Referred by: self referred HPI: Jake Duvall is a 63 y.o. male is referred for evaluation of of abdominal pain and diarrhea and pancreatic cysts Current symptoms: Intermittent abdominal pain in his back and mid abdomen (can be related or unrelated) and d iarrhea with urgency Sometimes it only occurs in the back but if he gets abdominal pain it always goes to the [facility]. Hospitalized for abdominal/back pain. Occurs about 3x a week. This pain was the same diego racter as being hospitalized in 2013, but not as severe. And he has had multiple episodes, s ometimes requiring dilaudid to control; he has daily 2-3/10 abd pain and it is unpredictable when it will become more severe. He cannot travel alone bc does not want to consume narcotics and have to drive. panc enzyme s does not help pain. Diarrhea: like he had just taken a colon prep, light colored, foul smelling since 08/20; ev er since his oziel in 2013 he has had some loose stools. Started on creon recently. The volume increased so much that he had trouble working. First loose stool and passing gas with bad odor. , sporadic bowel movement that fe lt like a "colon prep," stool went down his legs. Occurred couple hours after lunch. These e pisodes occurred 3x with 1-2 weeks apart. Had normal BM in between episodes in the mornings. Started wearing Depends. Since August 31 pt was started Cholestyramine, half a scoop wit h meals. Started Cholestyramine last week and was straining to have a bowel movement. Baseli ne BM is everyday that was "pudding" like consistency. In addition to his everyday BM, he wo uld occasionally have very loose stools. Tried Citrucel and improved his BM. Stopped Cholest yramine yesterday. 4 watery diarrhea accidents at work, up to 5 other episodes outside of wo rk. Med trials: citrucel has worked the best, cholesytramine x 2 separate times (causes constip ation and bloating); rifaximin caused constipation; panc enzymes have not helped Pancreatic cyst: CT scan was completed on August 31 during work up of diarrhea and a cys t was noted. Lead to work up as below. GI problem list (including prior diagnoses) Pancreatic head cyst CT 11/12: 12 x 9 x 4 mm HOP structure EUS 09/20: three small cysts in HOP; PD is 6 mm in HOP, No chronic panc, report noted ? O f intermittent PD obstruction vs EPI as cause for symptoms and thus recommended consideratio n of whipple MRI 11/06/18 multilobulaar cystic lesion, unchanged since 08/20 Hx of acute pancreatitis in 2013 felt to be 2/2 biliary sludge S/p ERCP complicated by post ERCP pancreatitis Fu admission for FTT resulted in EUS FNA for panc mass (normal cytology), complicated by b lood clot in CBD prompting another ERCP for sweep Father with pancreatic cancer and chronic pancreatitis Prior GI work up: 11/06/2018 MRI Abd wo Con 09/22/2018 EUS IMPRESSION- - Normal esophagus. - Multiple gastric polyps. Biopsied. - Normal examined duodenum. - There was no sign of significant pathology in the ampulla. - There was no sign of significant pathology in the common bile duct. - Evidence of a cholecystectomy. - There was no evidence of significant pathology in the visualized portion of the liver. - Three cystic lesions were seen in the pancreatic head. Tissue has not been obtained. 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 These are small and generally observation is recommended, but patient may be having symptoms related to mucin production causing intermittent obstruction with pain and pancreatic exocr ine insufficiency, This may justify consideration for surgery (i.e. Whipple). - The pancreatic duct had a dilated endosonographic appearance in the pancreatic head. The pancreatic duct measured up to 6 mm in diameter. - There was no sign of significant pathology in the pancreatic body, pancreatic tail and pa ncreatic neck. 08/11/2018 CT Abd wwo Con IMPRESSION - -There is a hypoattenuating, well-circumscribed 12 x 9 x 4 mm structure in the pancreatic h ead adjacent to a mildly prominent pancreatic duct measuring 4 mm. Given history of pancrea titis this could represent a small pseudocyst.Other pancreatic processes cannot be exclu ded. -Mildly heterogeneous 11 mm nodule in the interpolar right kidney.This is somewhat susp icious for a renal neoplasm. -Hyperattenuating cyst in the left kidney. 08/23/2014 [place] ERCP FINDINGS: -Three images are saved.On the first image, the common bile duct is dilated.There i s no abnormal extraluminal tracer.There is lucency around the wire.Uncertain if this is a filling defect or due to the balloon.On the second image, there is no reflux of co ntrast into intrahepatic ducts.Duct is dilated.Lucency around the wire presumably re presents a balloon.On the final image, there are no definite filling defects. IMPRESSION: -Fluoroscopy is used by the ordering clinician to do ERCP and sphincterotomy.Please see their separate report. 08/23/2014 CT A/P wo Con IMPRESSION: 1. Radiopaque density in the region of the common bile duct suspicious for a ductal stone a nd associated pancreatitis. 2. No evidence for perforation or free air. 08/23/2014 ERCP IMPRESSION- - A localized biliary stricture was found. The stricture was benign appearing and in the re gion of the suspected stripe of hemorrhage along the FNA tract. The acute nature of the bili yusuf obstruction suggests that prior mildly abnormal LFT were due to the space occupying infl ammation /mass in the NOP and small amount of hemorrhage due to FNA of this lesion tracked a long the intrapancreatic portion of the distal CBD furthering obstruction significantly. A 9 mm balloon passed through the region with little resistance and bile flow was noted both befor e cannulation and brisk contrast returned at completion of the procedure thus no stent was p laced. If a small hematoma was reason for the acute obstruction it should also resorb quickl y. 08/22/2014 EUS Findings: Endoscopic Finding : -The examined esophagus was endoscopically normal. -The entire examined stomach was endoscopically normal. -The examined duodenum was endoscopically normal. Endosonographic Finding : -There was no sign of significant endosonographic abnormality in the common bile duct. No m asses, no calcifications, no stones and no biliary sludge were identified. -An irregular mass was identified in the pancreatic neck. The mass was hypoechoic. The mass measured 22 mm by 30 mm in maximal cross-sectional diameter. The endosonographic borders were poorly-defined. An intact interface was seen bet ween the mass and the adjacent structures suggesting a lack of invasion. Fine needle aspirat ion was performed. Color Doppler imaging was utilized prior to needle puncture to confirm a lack of significant vascular structures within the needle path. Four passes were made with t he 22 gauge needle using a transduodenal approach. A stylet was used. A television production technician was prese nt and performed a preliminary cytologic examination. The cellularity of the specimen was ad equate. Final cytology results are pending. There was no sign of significant endosonographic abnormality in the pancreatic head, in the genu of the pancreas, in the pancreatic body, in the pancreatic tail, in the uncinate process of the pancreas and in the main pancreatic bianka t. IMPRESSION- - Normal esophagus. - Normal stomach. - Normal examined duodenum. - There was no sign of significant pathology in the common bile duct. - A mass was identified in the pancreatic neck. This was staged Tx Nx Mx by endosonographic criteria. The staging applies if malignancy is confirmed. - There was no sign of significant pathology in the pancreatic head, in the genu of the samaniego creas, in the pancreatic body, in the pancreatic tail, in the uncinate process of the pancre as and in the main pancreatic duct. ROS: A complete ROS was performed and is o/w negative Past Medical History: Diagnosis Date Diarrhea Kidney cysts Pancreatic cyst Pancreatitis Past Surgical History Procedure Laterality Date Knee arthroscopy, right Left shoulder surgery Sinus surgery Cholecystectomy Current Outpatient Prescriptions Medication Sig amino acids/multivitamin (MULTIVITAMIN-AMINO ACIDS ORAL) Take by mouth. amLODIPine 10 mg oral tablet Take 10 mg by mouth. carvedilol 25 mg oral tablet Take 25 mg by mouth. cholecalciferol (vitamin D3) (CHOLECALCIFEROL (VITD3) (BULK)) 100,000 unit/gram powder Mix in liquid and drink. Fish Oil-[place]-3 Fatty Acids (FISH OIL) 340-1,000 mg oral capsule Take 2,000 mg by mout h. losartan 100 mg oral tablet Take 100 mg by mouth. Melatonin 5 mg oral tablet Take 10 mg by mouth. omeprazole 20 mg oral capsule,delayed release(DR/EC) Take 20 mg by mouth. ondansetron ODT 4 mg oral tablet,disintegrating Dissolve 4 mg on tongue and swallow. Saw [place] 500 mg oral capsule Take by mouth. sildenafil 100 mg oral tablet Take 100 mg by mouth. No current facility-administered medications for this visit. Allergies not on file Fam Hx: Neg for panc ca Soc hx: Social History Social History Marital status: Spouse name: N/A Number of children: N/A Years of education: N/A Occupational History Not on file. Social History Main Topics Smoking status: Never Smoker Smokeless tobacco: Never Used Alcohol use Not on file Drug use: Unknown Sexual activity: Not on file Other Topics Concern Not on file Social History Narrative No narrative on file PEX: Visit Vitals Item Reading BP 132/89 Pulse 57 Temp (Src) 36.7 C (98.1 F) (Oral) RR 16 Ht 1.803 m (5' 11") Wt 95.8 kg (211 lb 1.6 oz) BMI 29.44 kg/(m^2) NAD, appears well RRR, no M CTAB +bs, s ttp in mid abdomen even to light tough No edema Labs: As above Impression 63 y.o. M with hx of acute biliary and post procedure pancreatitis in 2014 with: 1) multicystic lesion in head of the pancreas: in the setting of prior biliary and post ERC P pancreatitis in 2014 in which he was found to have an inflammatory mass in the HOP s/p EUS FNA; the ddx for this lesion is pseudocyst vs side branch IPMN; the main PD immediately adj acent is focally dilated on prior EUS and MRCP however there are no other significant worris ome features. I suspect that the cyst is an incidental finding and differentiating between pseudocyst and IPMN is clinically significant for f/u here. So we will plan to repeat EUS FN A to sample the lesion with hopes to send it for redpath evaluation of CEA and amylase. EUS can also take a closer look at [...] and normal TTG. No significant medications implicated Recs: - check pancreatic stool elastase - EUS/ERCP to FNA cyst for characterization and ERCP for PD stent as a trial - I will review his case with my pancreaticobiliary colleagues in our meeting tomorrow - Ok to stop Cholestyramine given that this has not helped - Continue to avoid dairy products The above impression and recommendations were discussed with the patient at length during t his clinic visit and he was provided with a written summary of our plan and instructions in the form of the after visit summary. A PARQ discussion was held for the GI procedure and included the risks of sedation, bleedin g, perforation, missed lesions. All questions were answered and the patient agrees to proce eding forward with the plan as outlined above. A copy of this progress note was sent to the PCP and referring provider. Traci Chavez MD, [facility] Office telephone: [phone] Nurse: Mali Washington Email: [email or web address] I, Amaury Velazquez, am functioning as a scribe for Dr. Traci Chavez MD. I have reviewed and verified the above scribed note of my visit with this patient as record ed by Amaury Velazquez. TRACI CHAVEZ MD [facility] [address]LO[address] Mailcode: [facility] [place] [address] documented in th is encounter Plan of Treatment Not on filedocumented as of this encounter Results PANCREATIC ELASTASE, STOOL (12/16/2018 [...] by | | | | | | [employer],[address] | | | | | | [address] [facility] [place] | | | | | | [address] | | | | | | [phone][employer]. | | | | | | Reza [...] [facility] | [address] | [place], [place] | | | [facility] | | [address] | | + + + + + documented in this encounter Visit Diagnoses + + | Diagnosis | + + | Chronic diarrhea - Primary Diarrhea | + + | Recurrent acute pancreatitis Acute pancreatitis | + + | Pancreatic cyst Cyst and pseudocyst of pancreas | + + documented in this encounter
--- OUTSIDE RECORDS SUMMARY | ~2019-03-31 | XMS | Clinical Summary ---
Demographics + + + | Address | [address] | | | [place] [address] | + + + | Home Phone | | + + + | Preferred Language | Unknown | + + + | Marital Status | | + + + | Buddhism Affiliation | 1041 | + + + | Race | Unknown | + + + | Ethnic Group | Unknown | + + + Author + + + | Author | [facility] | | | and [place] | + + + | Organization | [facility] | | | and [place] [...] Team Providers + +------+ + | Care Inspector Firearms Name | Role | Phone | + +------+ + | Dallin Baez DO | PP | Unavailable | + +------+ + Allergies + + + + + + | Active Allergy | Reactions | Severity | Noted | Comments | | | | | Date | | + + + + + + | Chlorthalidone | | | 05/08/20 | Pancreatitis | | | | | 18 | | + + + + + + Medications + + + +---------+------+------+-------+ | Medication | Sig | Dispensed | Refills | Star | End | Statu | | | | | | t | Date | s | | | | | | Date | | | + + + +---------+------+------+-------+ | sildenafil | Take 100 mg by mouth | | 0 | | | Activ | | (VIAGRA) 100 MG | as needed for | | | | | e | | tablet | Erectile | | | | | | | | Dysfunction. Use as | | | | | | | | directed | | | | | | + + + +---------+------+------+-------+ | fish oil 1,000 mg | Take 2,000 mg by | | 0 | | | Activ | | capsule | mouth Daily. | | | | | e | + + + +---------+------+------+-------+ | Saw [place] 500 | Take by mouth | | 0 | | | Activ | | MG CAPS | Daily. | | | | | e | + + + +---------+------+------+-------+ | Multiple | Take by mouth | | 0 | | | Activ | | Vitamins-Minerals | Daily. | | | | | e | | (MULTIVITAMIN ADULT | | | | | | | | PO) | | | | | | | + + + +---------+------+------+-------+ | melatonin 5 mg | Take 10 mg by mouth | | 0 | | | Activ | | tablet | nightly as needed | | | | | e | | | for Insomnia. | | | | | | + + + +---------+------+------+-------+ | Cholecalciferol | Take by mouth | | 0 | | | Activ | | (VITAMIN D PO) | Daily. | | | | | e | + + + +---------+------+------+-------+ | Psyllium | Take by mouth as | | 0 | | | Activ | | (METAMUCIL FIBER PO) | needed. | | | | | e | + + + +---------+------+------+-------+ | HYDROmorphone | Take 1 tablet by | 30 | 0 | 07/0 | | Activ | | (DILAUDID) 2 mg | mouth Twice daily | tablet | | 9/20 | | e | | tablet | as needed for Pain. | | | 18 | | | | | Use as directed | | | | | | + + + +---------+------+------+-------+ | carvedilol (COREG) | Take 1 tablet by | 180 | 3 | 07/0 | | Activ | | 25 mg tablet | mouth 2 times daily. | tablet | | 9/20 | | e | | | | | | 18 | | | + + + +---------+------+------+-------+ | losartan (COZAAR) | Take 1 tablet by | 90 | 3 | 07/0 | | Activ | | 100 MG tablet | mouth Daily. | tablet | | 9/20 | | e | | | | | | 18 | | | + + + +---------+------+------+-------+ | omeprazole | Take 1 capsule by | 90 | 3 | 07/0 | | Activ | | (PRILOSEC) 20 mg | mouth Daily. | capsule | | 9/20 | | e | | capsule | | | | 18 | | | + + + +---------+------+------+-------+ | ondansetron | Take 1 tablet by | 90 | 3 | / | | Activ | | (ZOFRAN ODT) 4 mg | mouth every 8 hours | tablet | | 9/20 | | e | | disintegrating | as needed for | | | 18 | | | | tablet | Nausea. | | | | | | + + + +---------+------+------+-------+ | amLODIPine | Take one tablet by | 90 | 3 | 11/2 | | Activ | | (NORVASC) 10 MG | mouth every day | tablet | | 6/20 | | e | | tablet | | | | 18 | | | + + + +---------+------+------+-------+ Active Problems + + + | Problem | Noted Date | + + + | Chronic steatorrhea | 07/27/2018 | + + + | Epigastric pain | 07/27/2018 | + + + | Benign prostatic hyperplasia with urinary obstruction | 05/08/2018 | + + + | Dysuria | 05/08/2018 | + + + | Essential hypertension, benign | 05/08/2018 | + + + | Salima type IIb hyperlipoproteinemia | 05/08/2018 | + + + | Pancreatitis | 05/08/2018 | + + + | Testicular hypofunction | 05/08/2018 | + + + | UTI (urinary tract infection) | 05/08/2018 | + + + | Abdominal pain | 08/22/2014 | + + + | Dyslipidemia | 08/22/2014 | + + + | Nausea & vomiting | 08/22/2014 | + + + Encounters +--------+ + + + + | Date | Type | Specialty | Care Team | Description | +--------+ + + + + | 03/22/ | Telephone | | Jamar Foreman | Follow-up ([facility] at | | 2019 | | | MD Andrzej | [facility] ) | +--------+ + + + + from Last 3 Months Family History + + + + + | Medical History | Relation | Name | Comments | + + + + + | Other (see comment) | Brother | | Bleeder | + + + + + | Cancer | Father | | Pancreatic | + + + + + | Hypertension | Father | | | + + + + + | Multiple sclerosis | Mother | | | + + + + + | Cancer | Other | Several | Skin | | | | siblings | | + + + + + | Hypertension | Other | Several | | | | | siblings | | + + + + + + + + + + | Relation | Name | Status | Comments | + + + + + | Brother | | Alive | | + + + + + | Father | | | | | | | (Age | | | | | 74) | | + + + + + | Mother | | | | | | | (Age | | | | | 68) | | + + + + + | Other | Several | Alive | | | | siblings | | | + + + + + Social History + [...] recent travel history available. | + + Last Filed Vital Signs + + + + | Vital Sign | Reading | Time Taken | + + + + | Blood Pressure | 173/102 | 08/11/2018943 PDT | + + + + | Pulse | 60 | 08/11/2018943 PDT | + + + + | Temperature | 36.9 C (98.4 F) | 08/11/2018829 PDT | + + + + | Respiratory Rate | 16 | 08/11/2018943 PDT | + + + + | Oxygen Saturation | 98% | 08/11/2018943 PDT | + + + + | Inhaled Oxygen | - | - | | Concentration | | | + + + + | Weight | 91.4 kg (201 lb 8 | 07/27/20181347 PDT | | | oz) | | + + + + | Height | 177.8 cm (5' 10") | 07/27/20181347 PDT | + + + + | Body Mass Index | 28.91 | 07/27/2018 1348 PDT | + + + + Plan of Treatment + + + + + | Health Maintenance | Due Date | Last Done | Comments | + + + + + | Hepatitis C | | | | | Screening | 7 | | | + + + + + | Vaccine: | | | | | Dtap/Tdap/Td (1 - | 6 | | | | Tdap) | | | | + + + + + | Vaccine: Zoster (1 | | | | | of 2) | 7 | | | + + + + + | Colorectal Cancer | | 10/15/2007 | | | Screening | 7 | | | | (Colonoscopy) | | | | + + + + + | Vaccine: Influenza | | | | | (Season Ended) | 9 | | | + + + + + | Primary Care | | 07/27/2018, 05/11/2018 | | | Outreach (Low Risk) | 0 | | | + + + + + Results Not on filefrom Last 3 Months Insurance +---------+--------+ +--------+ +---------+------+ | Payer | Benefi | Subscriber | Effect | Phone | Address | Type | | | t Plan | ID | goyo | | | | | | / | | Dates | | | | | | Group | | | | | | +---------+--------+ +--------+ +---------+------+ | BCBS | BCBS | [id number] | 11/03/19 | | | PPO | | | [place]OS | 1 | 17-Pre | | | | | | PPO | | sent | | | | +---------+--------+ +--------+ +---------+------+ | [place] | [id number] | 11/03/19 | [phone] | | [place] | | [place] | 1 | 17-Pre | 9 | | | | | | | sent | | | | +---------+--------+ +--------+ +---------+------+ + +--------+ +--------+ + + | Guarantor Name | Accoun | Relation to | Date | Phone | Billing Address | | | t Type | Patient | of | | | | | | | | | | + +--------+ +--------+ + + | Jake Duvall | Person | Self [birth year] | [address] | | | al/Fam | | 1955 | [phone] | [place] [address] | | | maura | | | 5 (Home) | | + +--------+ +--------+ + + | Jake Duvall | Person | Self [birth year] | [address] | | | al/Fam | | [birth year] | [phone] | [place] [address] | | | maura | | | 5 (Home) | | + +--------+ +--------+ + + Advance Directives Patient has advance care planning documents on file. For more information, please contact:[facility] and [facility] [place] [address]
--- OUTSIDE RECORDS SUMMARY | ~2019-03-31 | XMS | Encounter Summary ---
Demographics + + + | Address | [address] | | | [place] [address] | + + + | Home Phone | | + + + | Preferred Language | Unknown | + + + | Marital Status | | + + + | Hinduism Affiliation | CAT | + + + [...] [place] | | | | | [address] | | + + + + + Care Team Providers + +------+ + | Care Special Agent Group Insurance Name | Role | Phone | + +------+ + | TreyRosalind ariza MONISHA | PCP | | + +------+ + Encounter Details +--------+--------+ + + + | Date | Type | Department | Care Team | Description | +--------+--------+ + + + | 03/18/ | Travel | | | | | 2019 | | | | | +--------+--------+ + + + Social History + +-------+ [...]
--- OUTSIDE RECORDS SUMMARY | ~2019-03-31 | XMS | Encounter Summary ---
Demographics + + + | Address | [address] | | | [place] [address] | + + + | Home Phone | | + + + | Preferred Language | Unknown | + + + | Marital Status | | + + + | Sabianism Affiliation | CAT | + + + | Race | White | + + + | Ethnic Group | Not or | + + + Author + + + | Author | [facility] | + + + | Organization | [facility] | + + + | Address | Unknown | + + + | Phone | Unavailable | + + + Support + + + + + | Name | Relationship | Address | Phone | + + + + + | Johann Duvall | ECON | [address] | | | | | [place] | | | | | [address] | | + + + + + Care Team Providers + +------+ + | Care Coach Builder Name | Role | Phone | + +------+ + | Rosalind Nice | PCP | | + +------+ + Reason for Visit + + + | Reason | Comments | + + + | Follow-up visit | | + + + Encounter Details +--------+ + + + + | Date | Type | Department | Care Team | Description | +--------+ + + + + | 03/24/ | Telephone | Digestive Health | Traci Brody | Follow-up visit | | 2019 | | Center at [facility] [address] | [address] | | | | | [address] | [address] | | | | | Mailcode: Center | [place], [place] | | | | | for Health and | [address] | | | | | [facility] [address] | [phone] | | | | | [place], [place] | | | | | | [address] | | | | | | [phone] | | | +--------+ + + + [...]
--- OUTSIDE RECORDS SUMMARY | ~2019-03-31 | XMS | Encounter Summary ---
Demographics + + + | Address | [address] | | | [place] [address] | + + + | Home Phone | | + + + | Preferred Language | Unknown | + + + | Marital Status | | + + + | Orthodoxy Affiliation | CAT | + + + [...] [place] | | | | | [address] | | + + + + + Care Team Providers + +------+ + | Care Perinatology Physician Name | Role | Phone | + [...] + + + + | 01/18/ | Anesthesia | Endoscopic | Mitchel Craft, | | | 2019 | Event | Procedural Unit at | [facility] [address] | | | | | De[address] | [address] | | | | | [address] | [place], [place] | | | | | Road Mailcode: | [address] | | | | | [address] [facility] | [phone] | | | | | [address] | | | | | | [place], [place] | | | | | | [address] | | | | | | [phone] | | | +--------+ + + + + Anesthesia Record + + + + + | Procedure Name | Responsible | Anesthesia Start | Anesthesia Stop Time | | | Anesthesiologist | Time | | + + + + + | EUS UPPER | James Barrientos MD | 01/18/1931 | 01/18/1948 | + + + + + +----+---+ + + | Da | T | Event | Comment | | te | i | | | | | m | | | | | e | | | +----+---+ + + | 03 | 0 | Eq Check | Anesthesia machine checked Equipment verified | | /1 | 8 | | | | 8/ | 0 | | | | 20 | 0 | | | | 19 | | | | +----+---+ + + | | 0 | Pt. Check | Prior to anesthesia start, pt. Identified, examined, chart | | | 8 | | reviewed, PARQ held, anesthetic plan made or approved by | | | 2 | | attending anesthesiologist. NPO status confirmed as appropriate | | | 5 | | for procedure Preoperative evaluation: unchanged | +----+---+ + + | | 0 | Preprocedur | Pt ID confirmed, informed consent obtained, insertion site | | | 8 | e Checklist | marked, equipment available | | | 2 | | | | | 5 | | | +----+---+ + + | | 0 | | | | | 8 | | | | | 3 | | | | | 0 | | | +----+---+ + + | | 0 | An Start | | | | 8 | | | | | 3 | | | | | 1 | | | +----+---+ + + | | 0 | An Start | | | | 8 | Data | | | | 3 | | | | | 3 | | | +----+---+ + + | | 0 | Vitals | Monitors applied Vital signs checked Patient ready for anesthesia | | | 8 | Checked | | | | 3 | | | | | 3 | | | +----+---+ + + | | 0 | O2 by NC | | | | 8 | | | | | 4 | | | | | 0 | | | +----+---+ + + | | 0 | Ready | | | | 8 | | | | | 4 | | | | | 0 | | | +----+---+ + + | | 0 | Abx held | Contraindicated, or not indicated for this procedure, or already | | | 8 | Medical or | receiving antibiotics | | | 4 | Surgical | | | | 5 | Reason | | +----+---+ + + | | 0 | Pause | | | | 8 | | | | | 4 | | | | | 5 | | | +----+---+ + + | | 0 | Incision | | | | 8 | | | | | 4 | | | | | 6 | | | +----+---+ + + | | 0 | An Data Art | | | | 8 | | | | | 4 | | | | | 6 | | | +----+---+ + + | | 0 | Surgery end | | | | 9 | | | | | 4 | | | | | 0 | | | +----+---+ + + | | 0 | an stop | | | | 9 | data | | | | 4 | | | | | 3 | | | +----+---+ + + | | 0 | PACU Rpt | | | | 9 | Given | | | | 5 | | | | | 0 | | | +----+---+ + + | | 0 | Anesthesia | | | | 9 | End | | | | 5 | | | | | 0 | | | +----+---+ + + +------+ | Meds | +------+ + + + | Name | Total | + + + | glycopyrrolate | 0.2 mg | + + + | lidocaine 2% | 100 mg | + + + | propofol (DIPRIVAN) 200 mg | 953,250 mcg | + + + | ciprofloxacin 400mg | 400 mg | + + + | ondansetron | 4 mg | + + + | lactated ringers IV | 1,000 mL | + + + + + | Name | + + | O2 Flow Rate (Total Liters) | + + + + | No blood administrations on file. | + + +--------+ + + + | Type | Details | Placement | Removal | +--------+ + + + | Periph | 01/18/19; 08; Right; | 01/18/19825 by | 01/19/19 1038 by | | eral | Antecubital; 20 g; No; None; No; | Rosa Elena Aguilera RN | Atiya Funes RN | | IV | Positive; 01/19/19; 1038; | | | | | Discharge | | | +--------+ + + + [...] ciprofloxacin (CIPRO) IV 400 | Given | 01/19/20 | 400 mg | | | | mg in D5W (RTU) intravenous, | | 19 9:07 | | | | | INTRAPROCEDURE PRN, Starting Mon | | AM PDT | | | | | 01/18/19 at 0907, Until Mon | | | | | | | 01/18/19 at 0943 | | | | | | + +--------+ +--------+------+------+ +---+---+ | | | +---+---+ + +-------+ +--------+---+---+ | glycopyrrolate (ROBINUL) | Given | 01/19/20 | 0.2 mg | | | | injection INTRAPROCEDURE PRN, | | 19 8:29 | | | | | Starting 01/18/19 at 0829, | | AM PDT | | | | | Until 01/18/19 at 0943 | | | | | | + +-------+ +--------+---+---+ +---+---+ | | | +---+---+ + +---------+ [...] +---+ +---+---+ | | | +---+---+ + +-------+ +--------+---+---+ | lidocaine (XYLOCAINE MPF) 2 % | Given | 01/19/20 | 100 mg | | | | (20 mg/mL) injection | | 19 8:40 | | | | | intravenous, INTRAPROCEDURE PRN, | | AM PDT | | | | | Starting 01/18/19 at 0840, | | | | | | | Until 01/18/19 at 0943 | | | | | | + +-------+ +--------+---+---+ +---+---+ | | | +---+---+ + +-------+ +------+---+---+ | ondansetron (ZOFRAN) injection | Given | 01/19/20 | 4 mg | | | | INTRAPROCEDURE PRN, Starting Mon | | 19 9:32 | | | | | 01/18/19 at 0932, Until Mon | | AM PDT | | | | | 01/18/19 at 0943 | | | | | | + +-------+ +------+---+---+ +---+---+ | | | +---+---+ + + + + +---+---+ | propofol (DIPRIVAN) 200 mg | Rate/Dos | 01/19/20 | 150 | | | | INTRAPROCEDURE CONTINUOUS PRN, | e Change | 19 9:23 | mcg/kg/m | | | | Starting 01/18/19 at 0840, | | AM PDT | in | | | | Until 01/18/19 at 0943 | | | | | | + + + + +---+---+ + + + +---+---+ | Rate/Dose Change | 01/19/20 | 200 | | | | | 19 8:56 | mcg/kg/m | | | | | AM PDT | in | | | + + + +---+---+ | Rate/Dose Change | 01/19/20 | 150 | | | | | 19 8:53 | mcg/kg/m | | | | | AM PDT | in | | | + + + +---+---+ +---+---+ | | | +---+---+ documented in this encounter"
--- OUTSIDE RECORDS SUMMARY | ~2019-03-31 | XMS | Encounter Summary ---
Demographics + + + | Address | [address] | | | [place] [address] | + + + | Home Phone | | + + + | Preferred Language | Unknown | + + + | Marital Status | | + + + | Sikhism Affiliation | CAT | + + + | Race | White | + + + | Ethnic Group | Not or | + + + Author + + + | Author | [facility] | + + + | Organization | [facility] | + + + | Address | Unknown | + + + | Phone | Unavailable | + + + Support + + + + + | Name | Relationship | Address | Phone | + + + + + | Johann Duvall | ECON | [address] | | | | | [place] | | | | | [address] | | + + + + + Care Team Providers + +------+ + | Care Supervisor Patching Name | Role | Phone | + [...] | +--------+ + + + + | 01/11/ | Telephone-S | Preoperative | | Pre-operative | | 2019 | cheduled | Medicine Clinic at | | evaluation | | | | [facility] | | | | | | Stay [address] [facility] | | | | | | [address] | | | | | | Mailcode: [address] | | | | | | [address] | | | | | | [address] [place], [place] | | | | | | [address] | | | | | | [phone] | | | +--------+ + + + + Anesthesia Record + + + + + | Procedure Name | Responsible | Anesthesia Start | Anesthesia Stop Time | | | Anesthesiologist | Time | | + + + + + | EUS UPPER | James Barrientos MD | 01/18/19830 | 01/18/1948 | + + + + [...] + + + | Periph | 01/18/19; 0826; Right; | 01/18/19 0826 by | 01/19/19 1038 by | | [...] Instructions Patient Instructions Avril Tellez RN - 01/11/2019 11:10 AM PDTFormatting of this note angie ht be different from the original. PREOPERATIVE INSTRUCTIONS Do not eat or drink anything after midnight the night before surgery. TAKE the following medications with a sip of water on the morning of surgery: AMLODIPINE 10 MG TABLET DILAUDID ORAL OMEPRAZOLE 20 MG CAPSULE,DELAYED RELEASE ONDANSETRON 4 MG DISINTEGRATING TABLETIMODIUM ORAL Do NOT take the following medications on the morning of surgery: MULTIVITAMIN-AMINO ACIDS ORAL CARVEDILOL 25 MG TABLET CHOLECALCIFEROL (VITAMIN D3) 400 UNIT TABLET OMEGA-3 FATTY ACIDS-FISH OIL 340 MG-1,000 MG CAPSULE LOSARTAN 100 MG TABLET MELATONIN 5 MG [...] perfume, lotions or powder. Remove any nail faroese from at least one fingernail. Do not [...] Surgery Check in Locations Day Stay Unit [facility], fourth floor Room 4516 Surgery Check in Time: Someone from your surgeon's office or [facility] will provide you with information regarding your [...] it is after office hours, call the [facility] pig machine crane operator at [phone] and ask them to page your doc tor. documented in this encounter Plan of Treatment Not on filedocumented as of this encounter Visit Diagnoses Not on filedocumented in this encounter"
--- OUTSIDE RECORDS SUMMARY | ~2019-03-31 | XMS | Encounter Summary ---
Demographics + + + | Address | [address] | | | [place] [address] | + + + | Home Phone | | + + + | Preferred Language | Unknown | + + + | Marital Status | | + + + | Church Affiliation | CAT | + + + | Race | White | + + + | Ethnic Group | Not or | + + + Author + + + | Author | [facility] | + + + | Organization | [facility] | + + + | Address | Unknown | + + + | Phone | Unavailable | + + + Support + + + + + | Name | Relationship | Address | Phone | + + + + + | Johann Duvall | ECON | [address] | | | | | [address] | | | | | [address] | | + + + + + Care Team Providers + +------+ + | Care Tree Loader Meat Name | Role | Phone | + [...] | Procedural Unit at | [address] | | | | | De[address] | [facility] | | | | | [address] [facility] | [place], [place] | | | | | Road Mailcode: | [address] | | | | | [address] | [phone] | | | | | [address] | | | | | | [place], [place] | | | | | | [address] | | | | | | [phone] | | | +--------+ + + + [...]
--- OUTSIDE RECORDS SUMMARY | ~2019-03-31 | XMS | Encounter Summary ---
Demographics + + + | Address | [address] | | | [place] [address] | + + + | Home Phone | | + + + | Preferred Language | Unknown | + + + | Marital Status | | + + + | Buddhist Affiliation | CAT | + + + | Race | White | + + + | Ethnic Group | Not or | + + + Author + + + | Author | [facility] | + + + | Organization | [facility] | + + + | Address | Unknown | + + + | Phone | Unavailable | + + + Support + + + + + | Name | Relationship | Address | Phone | + + + + + | Johann Duvall | ECON | [address] | | | | | [place] | | | | | [address] | | + + + + + Care Team Providers + +------+ + | Care Supplier Quality Specialist Name | Role | Phone | + [...] | | [address] | [facility] [address] | E[facility]) | | | | [address] [facility] | [place], [place] | | | | | Road Mailcode: | [address] | | | | | [address] | [phone] | | | | | [address] | | | | | | [place], [place] | | | | | | [address] | | | | | | [phone] | | | +--------+ + + + [...]
--- OUTSIDE RECORDS SUMMARY | ~2019-03-31 | XMS | Encounter Summary ---
Demographics + + + | Address | [address] | | | [place] [address] | + + + | Home Phone | | + + + | Preferred Language | Unknown | + + + | Marital Status | | + + + | Sikh Affiliation | CAT | + + + | Race | White | + + + | Ethnic Group | Not or | + + + Author + + + | Author | [facility] | + + + | Organization | [facility] | + + + | Address | Unknown | + + + | Phone | Unavailable | + + + Support + + + + + | Name | Relationship | Address | Phone | + + + + + | Johann Duvall | ECON | [address] | | | | | [address] | | | | | [address] | | + + + + + Care Team Providers + +------+ + | Care Pipe Bending Machine Operator Name | Role | Phone | + +------+ + PCP | Unavailable | + +------+ + Reason for Visit + + + | Reason | Comments | + + + | Abdominal pain | | + + + Encounter Details +--------+ + + + + | Date | Type | Department | Care Team | Description | +--------+ + + + + | 08/16/ | Emergency | [facility] Emergency | | | | 2013 | | Department [address] | | | | | | [address] | | | | | | [facility] | | | | | | [place] [address] | | | | | | [phone] | | | +--------+ + + + [...]
--- OUTSIDE RECORDS SUMMARY | ~2019-03-31 | XMS | Encounter Summary ---
Demographics + + + | Address | [address] | | | [place] [address] | + + + | Home Phone | | + + + | Preferred Language | Unknown | + + + | Marital Status | | + + + | Orthodox Affiliation | CAT | + + + | Race | White | + + + | Ethnic Group | Not or | + + + Author + + + | Author | [facility] | + + + | Organization | [facility] | + + + | Address | Unknown | + + + | Phone | Unavailable | + + + Support + + + + + | Name | Relationship | Address | Phone | + + + + + | Johann Duvall | ECON | [address] | | | | | [address] | | | | | [address] | | + + + + + Care Team Providers + +------+ + | Care Shelving Supervisor Name | Role | Phone | + +------+ + | Rosalind Nice | PCP | | + +------+ + Encounter Details +--------+ + + + + | Date | Type | Department | Care Team | Description | +--------+ + + + + | 02/02/ | Telephone | Digestive Health | Traci Brody | | | 2019 | | [place] at [facility] [address] | [address] | | | | | [address] | [address] | | | | | Mailcode: Center | [place], [place] | | | | | for Health and | [address] | | | | | [facility] [address] | [phone] | | | | | [place], [place] | | | | | | [address] | | | | | | [phone] | | | +--------+ + + + [...]
--- OUTSIDE RECORDS SUMMARY | ~2019-03-31 | XMS | Clinical Summary ---
Demographics + + + | Address | [address] | | | [place] [address] | + + + | Home Phone | | + + + | Preferred Language | Unknown | + + + | Marital Status | | + + + | Protestant Affiliation | CAT | + + + | Race | White | + + + | Ethnic Group | Not or | + + + Author + + + | Author | NON REVENUE LOCATIONS | + + + | Organization | NON REVENUE LOCATIONS | + + + | Address | Unknown | + + + | Phone | Unavailable | + + + Support + + + + + | Name | Relationship | Address | Phone | + + + + + | Johann Duvall | ECON | [address] | | | | | [place] | | | | | [address] | | + + + + + Care Team Providers + +------+ + | Care Disassembler Product Name | Role | Phone | + +------+ + | Rosalind Nice | PP | | + +------+ + Source Comments KIMBERLI is fully live on both EpicCare Ambulatory and EpicCare InPatient.[facility] Allergies + + + + + + | Active Allergy | Reactions | Severity | Noted | Comments | | | | | Date | | + + + + + + | Chlorthalidone | Unknown | | 05/08/20 | Pancreatitis | | [...] | + + + +---------+------+------+-------+ | losartan 100 mg | Take 100 mg by | | 0 | 07/0 | | Activ | | oral tablet | mouth. | | | 9/20 | | e | | | | | | 18 | | | + + + +---------+------+------+-------+ | omeprazole 20 mg | Take 20 mg by mouth. | | 0 | | | Activ | | oral capsule,delayed | | | | | | e | | release(DR/EC) | | | | | | | + + + +---------+------+------+-------+ | amino | Take by mouth. | | 0 | | | Activ | | acids/multivitamin | | | | | | e | | (MULTIVITAMIN-AMINO | | | | | | | | ACIDS ORAL) | | | | | | | + + + +---------+------+------+-------+ | Melatonin 5 mg | Take 10 mg by mouth. | | 0 | | | Activ | | oral tablet | | | | | | e | + + + +---------+------+------+-------+ | amLODIPine 10 mg | Take 10 mg by mouth. | | 0 | | | Activ | | oral tablet | | | | | | e | + + + +---------+------+------+-------+ | Saw [place] 500 | Take by mouth. | | 0 | | | Activ | | mg oral capsule | | | | | | e | + + + +---------+------+------+-------+ | ondansetron ODT 4 | Dissolve 4 mg on | | 0 | | | Activ | | mg oral | tongue and swallow. | | | | | e | | tablet,disintegratin | | | | | | | | g | | | | | | | + + + +---------+------+------+-------+ | sildenafil 100 mg | Take 100 mg by | | 0 | | | Activ | | oral tablet | mouth. | | | | | e | + + + +---------+------+------+-------+ | cholecalciferol | Take 1,000 Units by | | 0 | | | Activ | | 400 unit oral tablet | mouth once daily. | | | | | e | + + + +---------+------+------+-------+ | methylcellulose | Take by mouth as | | 0 | | | Activ | | (CITRUCEL ORAL) | needed. | | | | | e | + + + +---------+------+------+-------+ | loperamide HCl | Take by mouth as | | 0 | | | Activ | | (IMODIUM ORAL) | needed. | | | | | e | + + + +---------+------+------+-------+ | acetaminophen 325 | Take 2 tablets by | 60 | 0 | 03/1 | | Activ | | mg oral tablet | mouth every four | tablet | | 9/20 | | e | | | hours as needed. | | | 19 | | | + + + +---------+------+------+-------+ | lidocaine 5 % | Apply 1 patch to | 5 patch | 0 | 03/1 | | Activ | | topical adhesive | skin every | | | 9/20 | | e | | patch,medicated | twenty-four hours. | | | 19 | | | | | Patch may remain in | | | | | | | | place for up to 12 | | | | | | | | hours in any 24-hour | | | | | | | | period. | | | | | | + + + +---------+------+------+-------+ | naloxone 4 | Instill into nostril | 2 each | 0 | 03/1 | | Activ | | mg/actuation nasal | for opioid | | | 9/20 | | e | | spray,non-aerosol | overdose. Repeat | | | 19 | | | | | with second device | | | | | | | | into other nostril | | | | | | | | after 2-3 minutes if | | | | | | | | no or minimal | | | | | | | | response. | | | | | | + + + +---------+------+------+-------+ | carvedilol 25 mg | Take 25 mg by mouth. | | 0 | 07/0 | | Activ | | oral tablet | | | | 9/20 | | e | | | | | | 18 | | | + + + +---------+------+------+-------+ | oxyCODONE | Take 1 to 2 tablets | 20 | 0 | 05/1 | | Activ | | (immediate release) | by mouth every three | tablet | | 7/20 | | e | | 5 mg oral tablet | hours as needed for | | | 19 | | | | | moderate pain. | | | | | | + + + +---------+------+------+-------+ | ciprofloxacin HCl | Take 1 tablet by | 8 | 0 | 05/1 | 05/2 | Expir | | 500 mg oral | mouth two times | tablet | | 7/20 | 20 | ed | | tabletIndications: | daily for 4 days. | | | 19 | 19 | | | intra-abdominal | Indications: | | | | | | | infection | abdominal infection | | | | | | + + + +---------+------+------+-------+ Active Problems + + + | Problem | Noted Date | + + + | H/O acute pancreatitis | 01/18/2019 | + + + | Hypercarbia | 01/18/2019 | + + + | Pancreatic cyst | | + + + | Hyperlipidemia | | + + + | GERD (gastroesophageal reflux disease) | | + + + | Diarrhea | | + + + | HTN (hypertension) | | + + + Encounters +--------+ + + + + | Date | Type | Specialty | Care Team | Description | +--------+ + + + + | 03/24/ | Telephone | | Traci Chavez | Follow-up visit | | 2019 | | | MD Dalton | | +--------+ + + + + | 03/19/ | Pharmacy | | | | | 2019 | Visit | | | | +--------+ + + + + | 03/19/ | Transcribe | | Traci Chavez | | | 2018 | Orders | | MD Dalton | | +--------+ + + + + | 03/18/ | Anesthesia | | Avril Tellez RN | | | 2019 | Event | | | | +--------+ + + + + | 03/18/ | Hospital | | Traci Chavez | | | 2018 - | Encounter | | MD Jessie Hoffman, | | | | | | MD José | | | 03/19/ | | | | | | 2018 | | | | | +--------+ + + + + +---+ + | | Discharge | | | Summary - | | | Jessie | | | José MD | | | - | | | 03/19/2019 | | | 8:05 AM | | | PDT | | | Formatting | | | of this | | | note might | | | be | | | different | | | from the | | | original.[facility] | [facility] | | [facility] | | | Discharge | | | SummaryDisc | | | harging | | | Provider: | | | José | | | Dowlatshahi | | | , | | | MDDischargi | | | ng | | | Attending | | | Physician: | | | Ojsé | | | Dowlatshahi | | | , MDPCP: | | | Rosalind | | | Harries, | | | PAAdmission | | | Date: | | | 03/18/2019Di | | | scharge | | | Date: | | | 03/19/19Hos | | | pital Stay: | | | 1 | | | day(s)Diagn | | | osis:Princi | | | pal | | | Diagnosis:1 | | | . Post-ERCP | | | | | | painAdditio | | | nal | | | Diagnoses:2 | | | . Chronic | | | Pancreatiti | | | s3. | | | Bradycardia | | | 4. | | | Hypertensio | | | nProcedures | | | : | | | ERCPReason | | | for | | | Admission:8 | | | 3y/o man | | | with | | | pancreatiti | | | s thought | | | to be 2/2 | | | chlorthalid | | | one c/b | | | chronic | | | diarrhea, | | | and | | | abdominal | | | pain s/p PD | | | stent on | | | 01/2019, | | | HTN, BPH | | | who | | | presented | | | for ERCP | | | today and | | | now | | | admitted | | | for | | | post-ERCP | | | painHospita | | | l Course by | | | Problem | | | (with | | | follow-up | | | plan/instru | | | ctions):#Ch | | | ronic | | | Pancreatiti | | | s 2/2 | | | Strictures# | | | Post-ERCP | | | s/p stent | | | placement#C | | | hronic | | | DiarrheaUnd | | | erwent ERCP | | | today with | | | stent | | | exchange | | | and | | | dilation of | | | stricture. | | | Pt | | | tolerated | | | procedure | | | well, | | | however | | | decision | | | made to | | | monitor pt | | | post-proced | | | ure given | | | previously | | | noted to | | | have | | | significant | | | abdominal | | | pain 24hrs | | | after ERCP. | | | During his | | | hospital | | | stay pain | | | was | | | controlled | | | with | | | oxycodone | | | and heating | | | pads which | | | pt noted | | | with | | | improvement | | | of his | | | pain. He | | | was also | | | started on | | | IVF. On day | | | of | | | discharge | | | pt | | | tolerated | | | PO intake | | | and was | | | discharged | | | home with | | | the | | | following:- | | | Soft low | | | fat diet | | | for a few | | | days- | | | Oxycodone | | | 5-10mg PO | | | q4hrs PRN | | | pain (20 | | | tablets)- | | | Ciprofloxac | | | in 500mg PO | | | bid to | | | complete 5 | | | days of | | | tx #Sinus | | | Bradycardia | | | Noted on | | | last | | | admission | | | to have HRs | | | in the | | | 40s, and | | | again noted | | | here | | | post-operat | | | ively. | | | Resolved on | | | day of | | | discharge. | | | #HTNContro | | | lled. Pt | | | instructed | | | to check | | | his BPs at | | | home and | | | slowly | | | re-introduc | | | e his home | | | anti-HTN.Pe | | | rtinent | | | Findings:ER | | | CP 03/18/19: | | | - PD | | | stricture | | | in head of | | | the | | | pancreas | | | with marked | | | main PD | | | tortuosity, | | | it was | | | challenging | | | to get the | | | wire | | | into the | | | dorsal PD | | | due to | | | persistent | | | side branch | | | | | | advancement | | | , resulting | | | in | | | retroperito | | | amy | | | contrast | | | injection- | | | Stricture | | | dilated to | | | 6 mm and 85 | | | Fr Johlin | | | PD stent | | | placed into | | | dorsal PD- | | | I was | | | unable to | | | keep a 2nd | | | wire in the | | | main PD PD | | | alongside | | | the PD | | | stent to | | | place a 2nd | | | | | | stentConsul | | | tants | | | (service/at | | | tending | | | name): | | | Gastroenter | | | ology/Dr. | | | Enestvedt, | | | Dr. | | | OtakiDischa | | | rge | | | Medications | | | : | | | Medication | | | List START | | | taking | | | these | | | medications | | | | | | ciprofloxac | | | in HCl 500 | | | mg | | | TabCommonly | | | known as: | | | CIPROTake | | | 1 tablet by | | | mouth two | | | times daily | | | for 4 | | | days. | | | Indications | | | : abdominal | | | infection | | | oxyCODONE | | | (immediate | | | release) 5 | | | mg | | | TabCommonly | | | known as: | | | | | | ROXICODONET | | | cyrus 1 to 2 | | | tablets by | | | mouth every | | | three | | | hours as | | | needed for | | | moderate | | | pain. | | | CONTINUE | | | taking | | | these | | | medications | | | | | | acetaminoph | | | en 325 mg | | | TabCommonly | | | known as: | | | | | | TYLENOLTake | | | 2 tablets | | | by mouth | | | every four | | | hours as | | | needed. | | | amLODIPine | | | 10 mg | | | TabCommonly | | | known as: | | | | | | NORVASCTake | | | 10 mg by | | | mouth. | | | carvedilol | | | 25 mg | | | TabCommonly | | | known as: | | | COREGTake | | | 25 mg by | | | mouth. | | | cholecalcif | | | charisma 400 | | | unit | | | TabCommonly | | | known as: | | | VITAMIN | | | D-3Take | | | 1,000 Units | | | by mouth | | | once daily. | | | CITRUCEL | | | ORALTake by | | | mouth as | | | needed. | | | IMODIUM | | | ORALTake by | | | mouth as | | | needed. | | | lidocaine 5 | | | % | | | PtmdCommonl | | | y known as: | | | | | | LIDODERMApp | | | ly 1 patch | | | to skin | | | every | | | twenty-four | | | hours. | | | Patch may | | | remain in | | | place for | | | up to 12 | | | hours in | | | any 24-hour | | | period. | | | losartan | | | 100 mg | | | TabCommonly | | | known as: | | | COZAARTake | | | 100 mg by | | | mouth. | | | Melatonin 5 | | | mg TabTake | | | 10 mg by | | | mouth. | | | MULTIVITAMI | | | N-AMINO | | | ACIDS | | | ORALTake by | | | mouth. | | | naloxone 4 | | | mg/actuatio | | | n | | | SpryInstill | | | into | | | nostril for | | | opioid | | | overdose. | | | Repeat with | | | second | | | device into | | | other | | | nostril | | | after 2-3 | | | minutes if | | | no or | | | minimal | | | response. | | | omeprazole | | | 20 mg | | | CpdrCommonl | | | y known as: | | | | | | PRILOSECTak | | | e 20 mg by | | | mouth. | | | ondansetron | | | ODT 4 mg | | | TbdiCommonl | | | y known as: | | | ZOFRAN | | | ODTDissolve | | | 4 mg on | | | tongue and | | | swallow. | | | Saw | | | [place] | | | 500 mg | | | CapTake by | | | mouth. | | | sildenafil | | | 100 mg | | | TabCommonly | | | known as: | | | VIAGRATake | | | 100 mg by | | | mouth. | | | STOP taking | | | these | | | medications | | | DILAUDID | | | ORAL | | | Rationale | | | for | | | Medication | | | Changes: | | | Oxycodone | | | for | | | painCiprofl | | | oxacin for | | | abx | | | ppxAllergie | | | s: | | | Allergies | | | Allergen | | | Reactions | | | | | | | | | Chlorthalid | | | one Unknown | | | | | | Pancreatiti | | | s Code | | | Status: | | | FullPOLST | | | completed: | | | noAdditiona | | | l | | | Instruction | | | s:Diet | | | Instruction | | | s Diet | | | Type: | | | Modfied | | | diet- Your | | | diet has | | | the | | | following | | | restriction | | | s. Stick | | | to a soft | | | low fat | | | diet for | | | the next | | | few days | | | and | | | gradually | | | increase | | | your diet | | | back to a | | | low fat | | | diet. | | | -Activity | | | Instruction | | | s | | | Activity | | | Instruction | | | s: No | | | activity | | | restriction | | | s | | | Additional | | | Instruction | | | s Seek | | | medical | | | attention | | | if having | | | worsening | | | abdominal | | | pain, chest | | | pain, | | | shortness | | | of breath, | | | sustained | | | fevers, | | | uncontrolle | | | d | | | nausea/vomi | | | ting/diarrh | | | ea, | | | confusion, | | | black or | | | bloody | | | stools, | | | severe | | | headaches, | | | any other | | | concerns. | | | Follow | | | Up:Schedule | | | the | | | following | | | appointment | | | (s) when | | | you get | | | home | | | BRINTHA K | | | ENESTVEDT, | | | MD. | | | Specialty: | | | | | | Gastroenter | | | ologyWhy: | | | They will | | | call you | | | for a | | | follow-up | | | appointment | | | in 3-4 | | | weeksContac | | | t | | | information | | | [address] | | | [place] | | | [place] | | | [place] | | | [place] | | | [phone] | | | [phone] | | | ROSALIND | | | [place] | | | . | | | Specialty: | | | Physician | | | AssistantCo | | | ntact | | | information | | | Pedro | | | Family | | | [id number] | | | [phone] | | | [place] | | | ite | | | [address] | | | [place] | | | [phone] | | [phone] | | | Discharge | | | Physical | | | Exam:Last | | | 24 hour | | | min/maxTemp | | | : 36.8 C | | | (98.2 F) | | | Temp Min: | | | 36.7 C | | | (98.1 F) | | | Max: 37.1 | | | C (98.8 | | | F) Pulse: | | | 47 No | | | data | | | recorded | | | Resp: 16 | | | Resp Min: | | | 14 Max: 16 | | | BP: 118/83 | | | BP Min: | | | 118/83 | | | Max: 141/90 | | | SpO2: 94 % | | | SpO2 | | | Min: 94 % | | | Max: 98 % | | | Body mass | | | index is | | | 28.59 | | | kg/m . | | | General | | | Appearance: | | | NAD, | | | speaking in | | | full | | | sentencesHE | | | ENT: EOMI, | | | anicteric | | | sclera, | | | clear | | | oropharynxN | | | milton: JVD | | | noted at | | | clavicle at | | | 90 | | | degreesCard | | | iac: RRR, | | | no | | | r/g/mPulmon | | | yusuf: CTAB, | | | no | | | w/r/cAbdome | | | n: +BS, | | | soft, mild | | | TTP in RUQ | | | and LUQ, | | | NDExtremiti | | | es: | | | negative | | | edemaNeuro: | | | A, Ox3, | | | moves all | | | extremities | | | , no focal | | | neuro | | | deficitsI | | | spent 41 | | | minutes | | | with the | | | patient of | | | which > 50% | | | of my time | | | was spent | | | face to | | | face | | | educating | | | patient and | | | on | | | abdominal | | | pain, blood | | | pressure | | | medications | | | , diet, as | | | well as | | | coordinatin | | | g the | | | patient's | | | care with | | | the nursing | | | and | | | consulting | | | staff.José | | | | | | Dowlatshahi | | | , MD | | | Electronica | | | lly signed | | | by José | | | Dowlatshahi | | | , MD at | | | 03/19/2019 | | | 7:19 PM | | | PDT | +---+ + +--------+ +---+ + + | 03/18/ | Adult School Teacher | | Traci Chavez | Pancreatic duct | | 2018 | | | MD Dalton | stricture (Primary | | | | | | Dx) | +--------+ +---+ + + | 03/18/ | Travel | | | | | 2018 | | | | | +--------+ +---+ + + | 03/12/ | Telephone-S | | | Pre-operative | | 2019 | cheduled | | | evaluation | +--------+ +---+ + + | 02/18/ | Telephone | | Traci Chavez | Back pain; Update | | 2018 | | | MD Dalton | from Patient | +--------+ +---+ + + | 02/17/ | Transcribe | | Transcribe | | | 2019 | Orders | | Encounter, Provider, | | | | | | MD | | +--------+ +---+ + + | 02/17/ | Telephone | | EnTraci magana | | | 2019 | | | MD Dalton | | +--------+ +---+ + + | 02/02/ | Telephone | | Traci Chavez | | | 2019 | | | MD Dalton | | +--------+ +---+ + + | 01/22/ | Abstract | | Traci Chavez | Medical Records | | 2019 | | | MD Dalton | Review | +--------+ +---+ + + | 01/20/ | Abstract | | Traci Chavez | Outside Records | | 2019 | | | MD Dalton | Received (DOS | | | | | | 01/18/19 [facility] | | | | | | reults; [facility] | | | | | | Diagnostics; Phone | | | | | | [phone]; Fax: | | | | | | [phone]) | +--------+ +---+ + + | 01/19/ | Telephone | | Traci Chavez | Care Coordination | | 2018 | | | MD Dalton | (F/u 01/18/19 | | | | | | EUS/ERCP) | +--------+ +---+ + + | 01/18/ | Anesthesia | | Avril Tellez RN | | | 2018 | Event | | | | +--------+ +---+ + + | 01/18/ | Hospital | | Traci Chavez | | | 2018 - | Encounter | | MD Pollo Hoffman Sara | | | | | | MD Dago | | | 01/19/ | | | | | | 2018 | | | | | +--------+ +---+ + + +---+ + | | Discharge | | | Summary - | | | Renee Abad | | | MD Dago - | | | 01/19/2019 | | | 10:39 AM | | | PDT | | | Formatting | | | of this | | | note might | | | be | | | different | | | from the | | | original.Cl | | | inical | | | Hospitalist | | | Service | | | Discharge | | | SummaryOreg | | | on Health & | | | Science | | | UniversityD | | | ischarging | | | Provider: | | | Chantal Abad, | | | | | | MDDischargi | | | ng | | | Attending | | | Physician: | | | Chantal Abad, | | | MDPCP: | | | Rosalind | | | Harries, | | | PAAdmission | | | Date: | | | 01/18/2019Di | | | scharge | | | Date: | | | 01/19/2019Ho | | | spital | | | Stay: 1 | | | day(s)Disch | | | arge | | | Disposition | | | : | | | HomeReason | | | for | | | Admission:8 | | | 3 yo M with | | | history of | | | | | | pancreatiti | | | s (2013) | | | c/b chronic | | | diarrhea | | | and | | | intermitten | | | t abdominal | | | pain, HTN, | | | BPH who | | | presented | | | for ERCP | | | now | | | admitted | | | for | | | post-ERCP | | | monitoring. | | | See | | | admission | | | note for | | | full | | | details of | | | the initial | | | history, | | | exam, and | | | data. | | | Diagnoses:P | | | atients | | | Hospital | | | Problem | | | List:Active | | | Hospital | | | Problems1) | | | H/O acute | | | pancreatiti | | | s2) | | | Pancreatic | | | cyst3) | | | Hyperlipide | | | mia4) GERD | | | | | | (gastroesop | | | hageal | | | reflux | | | disease)5) | | | Diarrhea6) | | | HTN | | | (hypertensi | | | on)7) | | | Hypercarbia | | | Procedures: | | | | | | EUSEGDConsu | | | ltants | | | (service/at | | | tending | | | name):GI/Dr | | | . | | | EnestvedtHo | | | spital | | | Course by | | | Problem: # | | | Acute | | | hypercarbic | | | | | | respiratory | | | failure# | | | SomnolenceO | | | n intial | | | examination | | | he was | | | mildly | | | somnolent, | | | but was | | | mentating | | | well and | | | protecting | | | his airway. | | | VBG with | | | respiratory | | | acidosis. | | | Received | | | several | | | pushes of | | | IV dilaudid | | | in PACU | | | prior to | | | transfer to | | | the floor | | | which was | | | the likely | | | cause of | | | his | | | somnolence | | | and | | | hypercarbia | | | . Held all | | | opioids. | | | Repeat VBG | | | with | | | improving | | | pCO2. Did | | | not require | | | narcan. | | | Overnight | | | developed | | | increasing | | | abdominal | | | pain and | | | given his | | | improvement | | | in | | | respiratory | | | status and | | | mentation, | | | low dose | | | oral | | | dilaudid | | | was | | | initiated. | | | Continuous | | | pulse | | | oximetry | | | kept on | | | overnight | | | as well. In | | | morning, | | | patient was | | | back to | | | his | | | baseline | | | and | | | mentating | | | well. | | | Abdominal | | | pain well | | | controlled | | | with oral | | | dilaudid | | | and he was | | | instructed | | | to | | | continued | | | his home | | | dilaudid | | | for prn | | | pain | | | control.- | | | narcan kit | | | ordered at | | | discharge | | | # | | | Post-ERCP# | | | Chronic | | | diarrheaERC | | | P and EUS | | | uncomplicat | | | ed. Stent | | | placed to | | | pancreatic | | | duct and | | | duodenal | | | biopsy | | | taken. Was | | | kept on LR | | | maintenance | | | fluids | | | overnight | | | and | | | immediately | | | was | | | tolerating | | | regular | | | diet. Was | | | started on | | | ciprofloxac | | | in per GI | | | for | | | infection | | | prophylaxis | | | given | | | pancreatic | | | cyst | | | aspiration. | | | - complete | | | ciprofloxac | | | in 500 mg q | | | 12 x 3 | | | days - GI | | | to call | | | patient re | | | pathology | | | results | | | after | | | discharge | | | # Sinus | | | bradycardia | | | # 1st deg | | | AVBBradycar | | | dic at | | | baseline, | | | although HR | | | 40s is | | | lower than | | | usual. | | | Suspect due | | | to | | | sedation | | | from | | | opioids. | | | Held home | | | antihyperte | | | nsive | | | overnight. | | | In morning | | | HR 50-60s, | | | thus coreg | | | discontinue | | | d at | | | discharge. | | | # | | | HTNNormoten | | | sive and | | | bradycardic | | | to 40s on | | | admission. | | | EKG with | | | sinus cheryl | | | and 1st | | | deg AVB. | | | HTN meds | | | held | | | overnight. | | | Restarted | | | amlodipine | | | and | | | losartan at | | | discharge. | | | Coreg | | | discontinue | | | d for | | | persistent | | | bradycardia | | | (per | | | review of | | | outside | | | clinic | | | notes, he | | | has been | | | bradycardic | | | to 50s | | | consistentl | | | y)Summary | | | of items | | | for PCP | | | follow up: | | | 1) BP off | | | of | | | carvedilol2 | | | ) GI | | | regarding | | | pathology | | | resultsOuts | | | tanding or | | | Pending | | | Labs/Studie | | | s: Duodenal | | | bx | | | /18/19Pert | | | inent/signi | | | ficant | | | findings as | | | above in | | | hospital | | | course. See | | | Epic for | | | additional | | | details of | | | labs, | | | imaging, | | | and other | | | studies. | | | EUS and | | | ERCP done | | | todayEUS | | | Impression: | | | | | | - no | | | evidence of | | | chronic | | | pancreatiti | | | s, few non | | | specific | | | | | | | | | | | | hyperechoic | | | strands, | | | likely | | | clinically | | | insignifica | | | nty | | | | | | | | | 3 small | | | clustered | | | cysts in | | | the HOP | | | near the | | | ampulla, | | | | | | | | | | | | distinct | | | from the | | | main PD, | | | s/p FNA for | | | diagnosis- | | | IPMN | | | | | | | | | vs | | | pseudocyst, | | | suspect | | | the | | | latter | | | | | | | | | - | | | normal post | | | op CBD s/p | | | oziel | | | | | | | | | - [place] | | | Grade A | | | reflux | | | esophagitis | | | . | | | | | | | | | - Normal | | | major | | | papilla and | | | examined | | | duodenum. | | | Biopsied. | | | | | | | | | - | | | There was | | | no sign of | | | significant | | | pathology | | | in the genu | | | | | | | | | | | | of the | | | pancreas, | | | pancreatic | | | body and | | | pancreatic | | | tail. | | | | | | | | | - A | | | cystic | | | lesion was | | | seen in the | | | pancreatic | | | head. Fine | | | | | | | | | | | | needle | | | aspiration | | | for fluid | | | performed. | | | | | | | | | - | | | There was | | | no sign of | | | significant | | | pathology | | | in the | | | | | | | | | | | | common bile | | | | | | duct.Recomm | | | endation: | | | fu | | | cluid | | | analysis | | | | | | | | | | | | cipro x 3 | | | days given | | | cyst | | | aspiration | | | | | | | | | | | | PPI | | | qday | | | | | | | | | ERCP | | | now | | | | | | | | | - Await | | | path | | | results. 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:Impress | | | ion: | | | - | | | Dilatation | | | of the | | | ventral | | | pancreatic | | | duct in the | | | head | | | | | | | | | and | | | genu with | | | mild | | | irregularit | | | y of the | | | contour of | | | the | | | | | | | | | MPD, PD | | | | | | sphincterot | | | behzad and PD | | | stent | | | placed to | | | see if his | | | | | | | | | | | | abd pain | | | symptoms | | | respond | | | | | | | | | - no | | | EUS | | | evidence of | | | chronic | | | pancreatiti | | | s, hx of | | | acute | | | | | | | | | | | | biliary | | | pancreatiti | | | s in | | | 2014 | | | | | | | | | - | | | normal | | | fecal | | | elastase | | | thus his | | | diarrhea is | | | not | | | | | | | | | | | | pancreatic | | | in origin | | | and he has | | | had no | | | response to | | | | | | | | | | | | pancreatic | | | | | | enzymes | | | | | | | | | - | | | his | | | diarrhea | | | and abd | | | pain | | | symptoms | | | significant | | | ly | | | | | | | | | affect | | | his quality | | | of | | | lifeRecomme | | | ndation: | | | - | | | will admit | | | for post | | | proc | | | observation | | | | | | | | | - | | | no labs | | | needed | | | | | | | | | - | | | IVF, | | | analgesia | | | as needed | | | (has | | | baseline | | | narcotic | | | use | | | | | | | | | for abd | | | pain) | | | | | | | | | - I | | | will | | | arrange GI | | | phone call | | | to patient | | | in 2 weeks | | | to | | | | | | | | | see if | | | his pain | | | has | | | improved | | | with the PD | | | stent; if | | | so, | | | | | | | | | will | | | bring back | | | for repeat | | | ERCP | | | (dilation | | | and | | | stenting) | | | | | | | | | | | | in 1 month; | | | if not, | | | will | | | arrange PD | | | stent pull | | | locally | | | | | | | | | | | | with | | | primary GI | | | Dr Roldan | | | Lam and | | | fu with him | | | to | | | | | | | | | further | | | work up | | | diarrhea | | | and abd | | | pain as | | | they are | | | not | | | | | | | | | clearly | | | related to | | | the | | | pancreas | | | | | | | | | - | | | Cipro x 3 | | | days for | | | panc cyst | | | aspirationD | | | ischarge | | | Medications | | | : | | | Medication | | | List START | | | taking | | | these | | | medications | | | | | | acetaminoph | | | en 325 mg | | | TabCommonly | | | known as: | | | | | | TYLENOLTake | | | 2 tablets | | | by mouth | | | every four | | | hours as | | | needed. | | | ciprofloxac | | | in HCl 500 | | | mg | | | TabCommonly | | | known as: | | | CIPROTake | | | 1 tablet by | | | mouth two | | | times | | | daily. | | | Indications | | | : abdominal | | | infection, | | | post-ERCP | | | prophylaxis | | | lidocaine | | | 5 % | | | PtmdCommonl | | | y known as: | | | | | | LIDODERMApp | | | ly 1 patch | | | to skin | | | every | | | twenty-four | | | hours. | | | Patch may | | | remain in | | | place for | | | up to 12 | | | hours in | | | any 24-hour | | | period. | | | naloxone 4 | | | mg/actuatio | | | n | | | SpryInstill | | | into | | | nostril for | | | opioid | | | overdose. | | | Repeat with | | | second | | | device into | | | other | | | nostril | | | after 2-3 | | | minutes if | | | no or | | | minimal | | | response. | | | CONTINUE | | | taking | | | these | | | medications | | | | | | amLODIPine | | | 10 mg | | | TabCommonly | | | known as: | | | | | | NORVASCTake | | | 10 mg by | | | mouth. | | | cholecalcif | | | charisma 400 | | | unit | | | TabCommonly | | | known as: | | | VITAMIN | | | D-3Take | | | 1,000 Units | | | by mouth | | | once daily. | | | CITRUCEL | | | ORALTake by | | | mouth as | | | needed. | | | DILAUDID | | | ORALTake 2 | | | mg by mouth | | | as needed. | | | FISH OIL | | | 340-1,000 | | | mg | | | CapGeneric | | | drug: Fish | | | | | | Oil-[place]-3 | | | Fatty | | | AcidsTake | | | 2,000 mg by | | | mouth. | | | IMODIUM | | | ORALTake by | | | mouth as | | | needed. | | | losartan | | | 100 mg | | | TabCommonly | | | known as: | | | COZAARTake | | | 100 mg by | | | mouth. | | | Melatonin 5 | | | mg TabTake | | | 10 mg by | | | mouth. | | | MULTIVITAMI | | | N-AMINO | | | ACIDS | | | ORALTake by | | | mouth. | | | omeprazole | | | 20 mg | | | CpdrCommonl | | | y known as: | | | | | | PRILOSECTak | | | e 20 mg by | | | mouth. | | | ondansetron | | | ODT 4 mg | | | TbdiCommonl | | | y known as: | | | ZOFRAN | | | ODTDissolve | | | 4 mg on | | | tongue and | | | swallow. | | | Saw | | | [place] | | | 500 mg | | | CapTake by | | | mouth. | | | sildenafil | | | 100 mg | | | TabCommonly | | | known as: | | | VIAGRATake | | | 100 mg by | | | mouth. | | | STOP taking | | | these | | | medications | | | | | | carvedilol | | | 25 mg | | | TabCommonly | | | known as: | | | COREG | | | Rationale | | | for | | | Medication | | | Changes:Car | | | vedilol - | | | Sinus | | | bradycardia | | | Allergies:A | | | llergies | | | Allergen | | | Reactions | | | | | | | | | Chlorthalid | | | one Unknown | | | | | | Pancreatiti | | | s Code | | | Status: | | | FullPOLST | | | completed: | | | noAdditiona | | | l | | | Instruction | | | s:Condition | | | on | | | Discharge | | | Good Diet | | | Regular | | | Regular | | | diet- There | | | are no | | | restriction | | | s to your | | | diet. You | | | may eat or | | | drink | | | whatever | | | you prefer, | | | though | | | healthy | | | food | | | choices are | | | | | | recommended | | | . Activity | | | No activity | | | | | | restriction | | | s Follow | | | Up:Schedule | | | the | | | following | | | appointment | | | (s) when | | | you get | | | home | | | ROSALIND | | | [place] | | | . | | | Specialty: | | | Physician | | | AssistantCo | | | ntact | | | information | | | Pedro | | | Family | | | [id number] | | | 0 | | | [place] | | | ite | | | [phone] | | | [place] | | | [phone] | | | [phone] | | | Discharge | | | Physical | | | Exam:Last | | | 24 hour | | | min/maxTemp | | | : 36.6 C | | | (97.9 F) | | | Temp Min: | | | 36.3 C | | | (97.3 F) | | | Max: 36.6 | | | C (97.9 | | | F) Pulse: | | | 57 Pulse | | | Min: 49 | | | Max: 59 | | | Resp: 18 | | | Resp Min: | | | 8 Max: 18 | | | BP: 152/81 | | | BP Min: | | | 111/71 | | | Max: 166/95 | | | SpO2: 97 % | | | SpO2 | | | Min: 96 % | | | Max: 97 % | | | Body mass | | | index is | | | 28.59 | | | kg/m . | | | Gen | | | | | | WDWN man, | | | lying in | | | bed, awake | | | and | | | alertHEENT | | | | | | PERRL, op | | | clear, | | | MMMPulm | | | | | | cbta, no | | | w/c/rCV | | | | | | | | | Bradycardic | | | but rr, no | | | m/r/g, JVP | | | | | | non-elevate | | | dAbd | | | | | | soft, | | | nt/nd, no | | | hsm, no | | | r/gExt | | | | | | wwp, | | | pulses 2+, | | | no | | | edemaNeuro | | | | | | Alert and | | | oriented | | | e3Ondnj | | | | | | TPo linear, | | | TCo | | | appropriate | | | ly | | | focusedSkin | | | | | | no | | | rash/skin | | | changesEPIC | | | | | | DEPARTMENT: | | | Hosp | | | ([facility]) - | | | [id number] | | | joel of | | | Service: IP | | | - | | | [id number] | | | of Service: | | | 01/19/2019 | | | MEDICAL | | | RECORD | | | NUMBER | | | [id number] | | | | | | [id number] | | | odifiers:GC | | | Resident | | | Involved: | | | NoService: | | | PRIMARY | | | HOSPITALIST | | | Suggested | | | CPT: [id number] | | | Discharge | | | Management | | | > 30 | | | minuteI | | | spent more | | | than >30 | | | minutes | | | face-to-fac | | | e with the | | | patient of | | | which | | | greater | | | than 50% | | | was spent | | | on | | | discharge | | | coordinatio | | | everette Cornejo | | | [place] | | | Morris | | | | | | Joey | | | vision of | | | Hospital | | | Medicine[facility] | | | U | | | Electronica | | | lly signed | | | by Renee Loza | | | MD Pollo at | | | 01/19/2019 | | | 6:20 PM | | | PDT | +---+ + +--------+ +---+---+ + | 01/11/ | Telephone-S | | | Pre-operative | | 2018 | cheduled | | | evaluation | +--------+ +---+---+ + from Last 3 Months Family History + + +------+ + | Medical History | Relation | Name | Comments | + + +------+ + | Lung Cancer | Brother | | | + + +------+ + | Pancreatic cancer | Father | | | + + +------+ + | Multiple Sclerosis | Mother | | | + + +------+ + | Lung Cancer | Sister | | | + + +------+ + | Diabetes | Sister | | | + + +------+ + + +------+ + + | Relation | Name | Status | Comments | + +------+ + + | Brother | | | | + +------+ + + | Father | | | | + +------+ + + | Mother | | | | + +------+ + + | Sister | | | | + +------+ + + | Sister | | | | + +------+ + + Social History + +-------+ +--------+------+ [...] + + + | Blood Pressure | 118/83 | 03/19/2019 11:33 AM | | | | | PDT | | + + + + + | Pulse | 47 | 03/18/2019 12:44 PM | | | | | PDT | | + + + + + | Temperature | 36.8 C (98.2 F) | 03/19/2019 11:33 AM | | | | | PDT | | + + + + + | Respiratory Rate | 16 | 03/19/2019 11:33 AM | | | | | PDT | | + + + + + | Oxygen Saturation | 94% | 03/19/2019 11:33 AM | | | | | PDT | | + + + + + | Inhaled Oxygen | - | - | | | Concentration | | | | + + + + + | Weight | 93 kg (205 lb) | 03/18/2019 7:21 AM | | | | | PDT | | + + + + + | Height | 180.3 cm (5' 11") | 03/18/2019 7:21 AM | | | | | PDT | | + + + + + | Body Mass Index | 28.59 | 03/18/2019 7:21 AM | | | | | PDT | | + + + + + Plan of Treatment + + + + + | Health Maintenance | Due Date | Last Done | Comments | + + + + + | Influenza (Flu) | Completed | 08/25/2018, 08/06/2017, | | | vaccination | | 07/07/2017, Additional history | | | | | exists | | + + + + + | Pneumococcal | Aged Out | | No longer eligible | | vaccination | | | based on patient's | | | | | age to complete this | | | | | topic | + + + + + Implants + +-------+------+ +--------+--------+--------+ | Implanted | Type | Area | Manufacture | Device | Shelf | Model | | | | | r | | Expira | / | | | | | | Identi | tion | Serial | | | | | | fier | Date | / Lot | + +-------+------+ +--------+--------+--------+ | Stent-01/18/2019Implanted: | STENT | | | | 04/03/ | / | | Qty: 1 on 01/18/2019 by | | | | | 2021 | /[id number] | | Traci Chavez, | | | | | | [phone] | | Explanted: 03/18/2019 by | | | | | | | | Traci Chavez MD | | | | | | | | (Quantity not on file) | | | | | | | + +-------+------+ +--------+--------+--------+ + + | Description:WALKER Pancreatic | | Stent, Single Pigtail | + + + +-------+---+---+---+--------+--------+ | Stent-03/18/2019Implanted: | STENT | | | | 01/22/ | / | | Qty: 1 on 03/18/2019 by | | | | | 2020 | [id number] | | Traci Chavez MD | | | | | | [phone] | + +-------+---+---+---+--------+--------+ + + | Description:8.5Fr x 20cm | | Rubin stent cut to 15cm | + + Procedures + +--------+ + + + | Procedure Name | Priori | Date/Time | Associated Diagnosis | Comments | | | ty | | | | + +--------+ + + + | ERCP | Urgent | 03/18/2019 | Pancreatic duct | Results for this | | | | 7:54 AM | stricture | procedure are in the | | | | PDT | | results section. | + +--------+ + + + | GI PROCEDURE UNIT | Routin | 03/18/2019 | | Results for this | | FLUOROSCOPY | e | 7:08 AM | | procedure are in the [...] section. | + +--------+ + + + from Last 3 Months Results ERCP (03/18/2019 7:54 AM PDT) + + | Specimen | + + | | + + + + + | Narrative | Performed At | + + + | MRN: | [facility] | | [id number] Date: 03/18/2019Patient Name: Jake Hunter #: | ENDOSCOPY | | [id number] of : 1955CSN: [id number] Type: | | | AmbulatoryRoom: GI 3Procedure: [...] | | | of HOP PD strictureProviders: TRACI Murphy | | | MD SCOTT (Doctor), RAUL PINTO (Nurse), | | | GENECREST BASCON | | | (Java Mobile Developer)Referring MD: TRACI CHAVEZ, | | | MDRequesting Provider: Medicines: Cipro 400 mg IV, | | | Indomethacin 100 mg [place], Monitored | | | Anesthesia | | [...] The Olympus | | | TJF-160VF Duodenoscope #[id number] was | | | introduced through the [...] A pancreatic stent was visible on the auto appraiser | | | film. The esophagus was [...] 2nd | | | stentRecommendation: admit [facility] for post procedure pain | | | mgmt aggressive IVF with | | | LR Cipro x 5 days given RP | | | contrast injection D/c to home | | | once able to take po well I | | | will arrange a fu phone call in 3-4 weeks and repeat | | | ERCP in 8-12 weeksTRACI Hoffman | | | MD SCOTT03/18/2019 9:47:24 AMNumber of Addenda: 0Note Initiated | | | On: 03/18/2019 7:54 [facility] Letter to: MONISHA BLACKMON | | + + + + +---------+ + + | Performing | Address | City/State/Zipcode | Phone Number | | Organization | | | | + +---------+ + + | [facility] | | | | + +---------+ + + GI PROCEDURE UNIT FLUOROSCOPY (03/18/2019 7:08 AM PDT)Only the most recent of 2 results nory collins the time period is included. + + | Specimen | + + | | + + + + + | Narrative | Performed At | + + + | See GI procedure for results. | [facility] | | | RADIOLOGY | + + + + +---------+ + + | Performing | Address | City/State/Zipcode | Phone Number | | Organization | | | | + +---------+ + + | [facility] | | | | + +---------+ + + BLOOD GASES, VENOUS - LAB (01/18/2019 4:07 PM PDT)Only the most recent of 2 results within the time period is included. + +--------+ + + + | Component [...] | + + + + + | [facility] | [address] | [place] [address] | | | LYNN MELÉNDEZ | [address] | | | + [...] + + + | ECG | Prolonged WI interval | | [facility] | | [...] | + + + + + | [facility] | [address] | [place], [place] | | | CARDIOLOGY | [address] | [address] | | + + + + + CAPILLARY BLOOD GLUCOSE (NO CHG), POC (01/18/2019 2:12 PM PDT) + +---------+ + + + | Component | Value | Ref Range | Performed | Pathologist | | | | | At | Signature | + +---------+ + + + | BLOOD | 106 (H) | 60 - 99 mg/dL | [facility] - | | | GLUCOSE, | | | [facility] | | | POC | | | [place], POINT | | | | | | OF [...] - MARIA FER[facility] | [address] | [place], [place] | | | DEXTER POINT OF CARE | [facility] | [address] | | | TESTS | | | [...] [facility] | | | LAB NAME | [facility] | | REFERENCE | | | | [address] | | LAB | | | | [place] [address] | | | | + + + + + + + + | Specimen | + + | Fluid | + + + + + | Narrative | Performed At | + + + | See scanned | [facility] | | report for Technical Results and further Interpretation and Comments. | REFERENCE LAB | | | | | | | + + + + + + + + | Performing | Address | City/State/Zipcode | Phone Number | | Organization | | | | + + + + + | [facility] | | | | + + + + + | [facility] | [address] | [place] [address] | | | SERVICES, CORE | [address] | | | + + + + + | [facility] | see below | | [...] Pathology | | | | | | ResidentPatriclalito | | | | | | MD Kari, PhD | | | | | | | | | | | | PathologistPathology, | | | | | | [facility] | | | | | | [facility] electronic | | | | | | [...] number | | | | | | [phone].A. Duodenum, | | | | | | [...] | + + + + + | [facility] | [address] | [place] [address] | | | PATHOLOGY | [address] | | | + + + + + ERCP (01/18/2019 8:25 AM PDT) + + | Specimen | + + | | + + + + + | Narrative | Performed At | + + + | MRN: | [facility] | | [id number] Date: 01/18/2019Patient Name: Jake Hunter | ENDOSCOPY | | #: [id number] of : 1955CSN: [id number] Type: | | | AmbulatoryRoom: GI 3Procedure: | | | ERCPIndications: Abdominal pain of suspected | | | pancreatic origin, focal PD | | | dilation in the HOP, anticipated PD | | | stentingProviders: TRACI CHAVEZ MD | | | (Doctor), DANIELLE XIONG RN | | | (Nurse), TRA GARCIA RN (Nurse), GENECrowdneticCON | | | (Java Mobile Developer)Referring | | | MD: TRACI CHAVEZ MDRequesting Provider: | | | Medicines: Indomethacin 100 mg [place], Monitored | | | Anesthesia CareComplications: No [...] The Olympus | | | TJF-160VF Duodenoscope #[id number] was | | | introduced through the [...] | Loss: Estimated blood loss: none.Findings: A auto appraiser | | | film of the abdomen [...] of Addenda: 0Note Initiated On: 01/18/2019 8:25 [facility] Letter | | | to: MONISHA BLACKMON, [...] + | MRN: | [facility] | | [id number] Date: 01/18/2019Patient Name: Jake Hunter | ENDOSCOPY | | #: [id number] of : 1955CSN: [id number] Type: | | | AmbulatoryRoom: GI 3Procedure: Upper | | | EUSIndications: Exclusion of chronic pancreatitis; hx | | | of acute pancreatitis in | | | 2014, chronic and intermittent abd pain | | | and diarrhea; hx of cyst in | | | the HOP- unclear if | | | pseudocyst vs IPMNProviders: TRACI CHAVEZ, | | | (Doctor), TRA GARCIA RN | | | (Nurse), DANIELLE XIONG RN | | | (Nurse), GENECrowdneticCON | | | (Java Mobile Developer)Referring MD: TRACI CHAVEZ, | | | MDRequesting [...] | procedure. The Olympus | | | [id number] Linear Echoendoscope #[id number] was | | | introduced through the mouth, | | | and advanced to the second | | | part of duodenum. The Olympus [id number] Endoscope | | | #[id number] was introduced | | | through the [...] | | 0Note Initiated On: 01/18/2019 8:19 [facility] Letter to: ROSALIND | | | MONISHA NCIE, LINDSAY WOODALL MD, Jamar Foreman MD | | + + + + +---------+ + + | Performing | Address | City/State/Zipcode | Phone Number | | Organization | | | | + +---------+ + + | [facility] | | | | + +---------+ + + CARDIOLOGY (01/18/2019 12:00 AM PDT)Only the most recent of 2 results within the time brenda magdaleno is included. + + + | Narrative | Performed At | + + + | | | + + + from Last 3 Months Insurance + +--------+ +--------+ + +------+ | Payer | Benefi | Subscriber | Effect | Phone | Address | Type | | | t Plan | ID | goyo | | | | | | / | | Dates | | | | | | Group | | | | | | + +--------+ +--------+ + +------+ | BLUE CROSS BLUE | BCBS | xxxxxxxxxxx | 04/03/20 | [phone] | [address] | PPO | | SHIELD | OUT OF | x | 18-Pre | 8 | [address] | | | | STATE | | sent | | [place], | | | | | | | | [place] | | | | | | | | [address] | | + +--------+ +--------+ + +------+ + +--------+ +--------+ + + | Guarantor Name | Accoun | Relation to | Date | Phone | Billing Address | | | t Type | Patient | of | | | | | | | | | | + +--------+ +--------+ + + | Jake Duvall | Person | Self [birth year] | [address] | | | al/Fam | | 1954 | [phone] | [place] [address] | | | maura | | | 8 (Home) | | + +--------+ +--------+ + + Advance Directives + + + + + | Code Status | Date | Date | Comments | | | Activated | Inactivated | | + + + + + | Full Code | 03/18/2019 | 03/19/2019 | | | | 3:23 PM | 9:05 PM | | + + + + + + + + +---+ | | | | | + + + +---+ | Full Code | 01/18/2019 | 01/19/2019 | | | | 9:47 AM | 4:45 PM | | + + + +---+
--- OUTSIDE RECORDS SUMMARY | ~2019-03-31 | XMS | Encounter Summary ---
Demographics + + + | Address | [address] | | | [place] [address] | + + + | Home Phone [...] [address] | | | | | [address] | | + + + + + Care Team Providers + +------+ + | Care Database Engineer Name | Role | Phone | + +------+ + | Rosalind iNce | PCP | | + +------+ + [...] + + | 03/18/ | Hospital | [facility] [address] | Traci Chavez | | | 2019 - | Encounter | [address] | [place] [address] | | | | | [id number] | [address] | | | 03/19/ | | [place], | [place], [place] | | | 2018 | | [place] [address] | [address] | | | | | [phone] | [phone] | | | | | | | | | | | | José Roman, | | | | | | [address] | | | | | | [address] | | | | | | [place], [place] | | | | | | [address] | | | | | | [phone] | | | | | | | [...] + documented in this encounter Discharge Summaries José Roman MD - 03/19/2019 8:05 AM PDT Formerly [facility] Discharge Summary Discharging Provider: José Roman MD Discharging Attending Physician: José Roman MD PCP: MONISHA Waller Admission Date: 03/18/2019 Discharge Date: 03/19/19 Hospital Stay: 1 day(s) Diagnosis: Principal Diagnosis: 1. Post-ERCP pain Additional Diagnoses: 2. Chronic Pancreatitis 3. Bradycardia 4. 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 Pt tolerated procedure well, however decision made to monitor pt post-procedure given previously noted to have sign ificant abdominal pain 24hrs after ERCP. During his hospital stay pain was controlled with o xycodone and heating pads which pt noted with improvement of his pain. He was also started o n IVF. On day of discharge pt tolerated PO intake and was discharged home with the following : - Soft low fat diet for a few days - Oxycodone 5-10mg PO q4hrs PRN pain (20 tablets) - Ciprofloxacin 500mg PO bid to complete 5 days of tx #Sinus Bradycardia Noted on last admission to have HRs in the 40s, and again noted here post-operatively. Reso lved on day of discharge. #HTN Controlled. Pt instructed to check his BPs at home and slowly re-introduce his home anti-HT N. Pertinent Findings: ERCP 03/18/19: - PD stricture in head of the pancreas with marked main PD tortuosity, it was challenging t o get the wire intothe dorsal PD due to persistent side branch advancement, resulting in r etroperitoneal contrast injection - Stricture dilated to 6 mm and 85 Fr Johlin PD stent placed into dorsal PD - I was unable to keep a 2nd wire in the main PD PD alongside the PD stent to place a 2nd s tent Consultants (service/attending name): Gastroenterology/Dr. Chavez, Dr. Kaur Discharge Medications: Medication List START taking these medications ciprofloxacin HCl 500 mg Tab Commonly known as: CIPRO Take 1 tablet by mouth two times daily for 4 days. Indications: abdominal infection oxyCODONE (immediate release) 5 mg Tab Commonly known as: ROXICODONE Take 1 to 2 tablets by mouth every three hours as needed for moderate pain. CONTINUE taking these medications acetaminophen 325 mg Tab Commonly known as: TYLENOL Take 2 tablets by mouth every four hours as needed. amLODIPine 10 mg Tab Commonly known as: NORVASC Take 10 mg by mouth. carvedilol 25 mg Tab Commonly known as: COREG Take 25 mg by mouth. cholecalciferol 400 unit Tab Commonly known as: VITAMIN D-3 Take 1,000 Units by mouth once daily. CITRUCEL ORAL Take by mouth as needed. IMODIUM ORAL Take by mouth as needed. lidocaine 5 % Ptmd Commonly known as: LIDODERM Apply 1 patch to skin every twenty-four hours. Patch may remain in place for up to 12 hours in any 24-hour period. losartan 100 mg Tab Commonly known as: COZAAR Take 100 mg by mouth. Melatonin 5 mg Tab Take 10 mg by mouth. MULTIVITAMIN-AMINO ACIDS ORAL Take by mouth. naloxone 4 mg/actuation [place] Instill into nostril for opioid overdose. Repeat with second device into other nostril afte r 2-3 minutes if no or minimal response. omeprazole 20 mg Cpdr Commonly known as: PRILOSEC Take 20 mg by mouth. ondansetron ODT 4 mg Tbdi Commonly known as: ZOFRAN ODT Dissolve 4 mg on tongue and swallow. Saw [place] 500 mg Cap Take by mouth. sildenafil 100 mg Tab Commonly known as: VIAGRA Take 100 mg by mouth. STOP taking these medications DILAUDID ORAL Rationale for Medication Changes: Oxycodone for pain Ciprofloxacin for abx ppx Allergies: Allergies Allergen Reactions Chlorthalidone Unknown Pancreatitis Code Status: Full POLST completed: no Additional Instructions: Diet Instructions Diet Type: Modfied diet- Your diet has the following restrictions. Stick to a soft low fat diet for the next few days and gradually increase your diet back to a low fat diet. - Activity Instructions Activity Instructions: No activity restrictions Additional Instructions Seek medical attention if having worsening abdominal pain, chest pain, shortness of breath , sustained fevers, uncontrolled nausea/vomiting/diarrhea, confusion, black or bloody stools , severe headaches, any other concerns. Follow Up: Schedule the following appointment(s) when you get home TRACI CHAVEZ MD. Specialty: Gastroenterology Why: They will call you for a follow-up appointment in 3-4 weeks Contact information [address] [place] [address] [place] [phone] MONISHA WALLER . Specialty: Physician Salad Chef Contact information [address] [place] [address] Discharge Physical Exam: Last 24 hour min/max Temp: 36.8 C (98.2 F) Temp Min: 36.7 C (98.1 F) Max: 37.1 C (98.8 F) Pulse: 47 No data recorded Resp: 16 Resp Min: 14 Max: 16 BP: 118/83 BP Min: 118/83 Max: 141/90 SpO2: 94 % SpO2 Min: 94 % Max: 98 % Body mass index is 28.59 kg/m. General Appearance: NAD, speaking in full sentences HEENT: EOMI, anicteric sclera, clear oropharynx Neck: JVD noted at clavicle at 90 degrees Cardiac: RRR, no r/g/m Pulmonary: CTAB, no w/r/c Abdomen: +BS, soft, mild TTP in RUQ and LUQ, ND Extremities: negative edema Neuro: A, Ox3, moves all extremities, no focal neuro deficits I spent 41 minutes with the patient of which > 50% of my time was spent face to face educat ing patient and on abdominal pain, blood pressure medications, diet, as well as coordin ating the patient's care with the nursing and consulting staff. José Roman MD documented in this encounter Discharge Instructions Discharge Instr - Activity José Roman MD - 03/19/2019 10:56 AM PDTActivity Instruc tions: No activity restrictions Discharge Instr - Diet José Roman MD - 03/19/2019 10:56 AM PDTDiet Type: Modfied d iet- Your diet has the following restrictions. Stick to a soft low fat diet for the next few days and gradually increase your diet back to a low fat diet. Discharge Instr - Diagnoses José Roman MD - 03/19/2019 10:54 AM PDTPost-ERCP pain Pancreatitis High blood pressure T Discharge Instr - Procedures José Roman MD - 03/19/2019 10:54 AM PDTERCP done on Discharge Instr - Hospital Course José Roman MD - 03/19/2019 10:56 AM PDTIt was a pleasure taking care of you! You were admitted to the hospital for post-ERCP pain. Your pain was managed with pain medic ations and you noted improvement of your pain at the time of your discharge. You were tolera ting a regular diet at discharge with no increase in pain. You should continue to stick to a soft, low fat diet for the next few days and make sure to stay hydrated (minimum of 2L of w ater a day). You should take the oxycodone as needed and should use heating pads as needed for your pain. You were prescribed antibiotics to complete a 5 day course of antibiotics.Mey ctronically signed by José Roman MD at 03/19/2019 10:56 AM PDT Discharge Instr - Electronic Signature José Roman MD - 03/19/2019 10:57 AM PDTAfte r Visit Summary Signature Electronically signed by: José Roman MD, 03/19/2019 at 10:57 AMElectronically si gned by José Roman MD at 03/19/2019 10:57 AM PDT Additional Instructions José Roman MD - 03/19/2019 10:57 AM PDTSeek medical attent ion if having worsening abdominal pain, chest pain, shortness of breath, sustained fevers, u ncontrolled nausea/vomiting/diarrhea, confusion, black or bloody stools, severe headaches, a ny other concerns. documented in this encounter Medications at Time of Discharge + + + +---------+ + + | Medication | Sig | Dispensed | Refills | Start | End Date | | | | | | Date | | + + + +---------+ + + | acetaminophen 325 | Take 2 tablets by | 60 | 0 | 01/20/20 | | | mg oral tablet | [...] nostril | 2 each | 0 | 03/19/20 | | | mg/actuation nasal | for [...] | | | | | | | release(DR/EC) | | | | | | + + + +---------+ + + | ondansetron ODT 4 | Dissolve 4 mg on | | 0 | | | | mg oral | tongue and swallow. | | | | | | tablet,disintegratin | | | | | | | g | | | | | | + + + +---------+ + + | oxyCODONE | Take 1 to 2 tablets | 20 | 0 | 03/19/20 | | | (immediate release) | by mouth every three | tablet | | 19 | | | 5 mg oral tablet | hours as needed for | | | | | | | moderate pain. | | | | | + + + +---------+ + + | Saw Floriston 500 | Take by mouth. | | 0 | | | | mg oral capsule | | | | | | + + + +---------+ + + | sildenafil 100 mg | Take 100 mg by | | 0 | | | | oral tablet | mouth. | | | | | + + + +---------+ + + | ciprofloxacin HCl | Take 1 tablet by | 8 | 0 | 03/19/20 | | | 500 mg oral | mouth two times | tablet | | 19 | 9 | | tabletIndications: | daily for 4 days. | | | | | | intra-abdominal | Indications: | | | | | | infection | abdominal infection | | | | | + + + +---------+ + + documented as of this encounter Progress Notes Bailee Culp MD - 03/19/2019 9:57 AM PDTGastroenterology Progress Note 03/19/2019 IMPRESSION Jake Duvall is a 63 yo man with PMH of pancreatitis 2014 from biliary sludge complicat ed by post ERCP pancreatitis, development of HOP multicystic lesion, FNA normal, ddx include s pseudocyst vs. Side branch IPMN. Chronic abdominal pain/ back pain, related to pancreatitis episodes. Intermittent diarrhea episodes, fecal elastase normal, not pancreatic insufficiency. He had an EUS and ERCP in 01/2019 where there was no evidence of chronic pancreatitis. Cyst aspiration with high amylase 17,000 more consistent with pseudocyst, ERCP with dilation of t he ventral pancreatic duct in the head and genu and PD stent placement. He returned for a repeat ERCP to repeat dilation and stent exchange in the PD. 03/18 procedu re where stricture in in the PD head was difficult to navigate and there was tortuosity so t hat the wire did not advance to the dorsal PD easily and there was resulting retroperitoneal contrast. Only one stent could be placed in to the ventral pancreatic duct which was dilate d to 6mm. RECOMMENDATIONS 1) advance diet as tolerated, if no increased pain or nausea with liquid diet this am, ok for soft low fat diet for lunch. 2) pain control per primary team 3) complete 5 days of ciprofloxacin given retroperitoneal contrast during the case 4) repeat ERCP in 8-12 weeks, we will arrange, we will also be calling patient in 3-4 week s to follow up on the phone 5) continue IV fluids until patient is able to tolerate a regular diet Thank you for this consult; we will continue to follow. This plan was discussed and formula jud with the gastroenterology attending, Dr. Kaur. Bailee Culp MD Gastroenterology Fellow GI pager [phone] INTERVAL EVENTS/SUBJECTIVE - mild pain in the epigastric region. Back pain is improved. More tender across the entire abdomen last night. Starting clear liquid diet this am, no nausea PHYSICAL EXAM BP 126/83 (BP Location: Left upper arm, Patient Position: Lying on back) | Pulse (!) 47 | Temp 37.1 C (98.8 F) (Oral) | Resp 16 | Ht 1.803 m (5' 11") | Wt 93 kg (205 lb) | S pO2 94% | BMI 28.59 kg/m | BSA 2.16 m : Systolic (24hrs), Av , Min:108 , Max:141 / Diastolic (24hrs), Av, Min:76, Max:97 Pulse Av Min: 47 Max: 51 Temp Av.8 C (98.2 F) Min: 36.5 C (97.7 F) Max: 37.1 C (98.8 F) Resp Av.9 Min: 14 Max: 18 SpO2 Av % Min: 93 % Max: 98 % GEN: NAD, alert and oriented HEENT: MMM COR: RRR PULM: CTAB ABD: tender epigastric region EXT: wwp SKIN: no rashes NEURO: CN2-12 grossly intact nestvedtTraci MD - 03/18/2019 2:22 PM PDTBrief GI Procedure Note 03/18/2019 GI procedure performed. Procedure(s): ERCP Findings: A pancreatic stent was visible on the pound attendant film. The esophagus was successfully intubated under direct vision. The scope was advanced from the mouth to the duodenum. The pharynx, larynx and associated structures, as well as the upper GI tract, were normal. One pancreatic stent originating in the pancreatic duct was emerging from the major papilla. The stent was visibly patent. One stent was removed from the pancreatic duct using a snare. The ventral pancreatic duct was deeply cannulated with the short-nosed traction sphincterotome. Contrast was injected. I personally interpreted the pancreatic duct images. Ductal flow of contrast was adequate. Image quality was excellent. Contrast extended to the proximal pancreatic duct. The pancreatic duct was markedly tortuous from the head through the genu. There was segmental dilation of the MPD in the HOP 1 cm proximal to the ampulla (diameter 4-5mm) ; proximal to this was a 1.5 cm length stricture and marked tortuosity in the head of the pancreas. Upstream, the PD was relatively normal, mildly dilated to 3 mm. Advancement of the wire to the dorsal PD was very challenging due to the tortuous main PD in the head and genu with persistent wire advancement into side branches. There was extraluminal contrast on the flouroscopy images suggestive of wire RP penetration. The 0.25" visiglide wire was effective in traversing the dorsal PD. Dilation of the main pancreatic duct with a 4 mm balloon and a 6 mm balloon dilator was successful in a layering fashion in the genu and HOP. One 8.5 Fr by 15 cm Johlin pancreatic stent with no external flaps and no internal flaps was placed 14 cm into the ventral pancreatic duct. Clear fluid flowed through the stent. The stent was in good position. I attempted to cannulate the PD alongside the PD stent with a wire but was unable to keep the wire in the main PD. Impression: - previously placed PD stent removed - PD stricture in head of the pancreas with marked main PD tortuosity, it was challenging to get the wire into the dorsal PD due to persistent side branch advancement, resulting in retroperitoneal contrast injection - Stricture dilated to 6 mm and 85 Fr Johlin PD stent placed into dorsal PD - I was unable to keep a 2nd wire in the main PD PD alongside the PD stent to place a 2nd stent Recommendation: admit to [facility] for post procedure pain mgmt (report given to Dr Sue calvert) aggressive IVF with LR Cipro x 5 days given RP contrast injection D/c to home once able to take po well I will arrange a fu phone call in 3-4 weeks and repeat ERCP in 8-12 weeks Traci Chavez MD Gastroenterology Pager [phone] [email or web address], Cm Hoffman MD - 03/18/2019 7:59 AM PDTFormatting of this note might be different from the origin al. PRE PROCEDURE NOTE: MR# [id number] Subjective: Jake Duvall is a 63 y.o. male who presents today for a GI procedure. Patient History Reviewed Medications reviewed Allergies: Allergies as of 02/18/2019 - Fully Reviewed 01/18/2019 Allergen Reaction Noted Chlorthalidone Unknown 05/08/2018 Pt NPO for 12 hrs. ROS: All others negative. Objective: Vital Signs: BP 132/86 (BP Location: Left upper arm, Patient Position: Lying on back) | Pu lse 52 | Temp 36.6 C (97.9 F) (Forehead) | Resp 16 | Ht 1.803 m (5' 11") | Wt 93 kg (205 lb) | SpO2 100% | BMI 28.59 kg/m | BSA 2.16 m Neuro: Patient oriented X3. Mental status clear and intact Mallampati Score: II Neck Neck supple. No adenopathy Respiratory: negative findings: no chest deformities noted, normal diaphragmatic excursion Cardiovascular: peripheral pulses are wnl, no edema Abdomen: nontender, no masses, no organomegaly Impression Patient deemed appropriate candidate for planned procedure and sedation. ASA 3 Plan Proceed with GI procedure PARQ held and all questions addressed. Consent obtained. See procedure note 03/18/2019 documented in th is encounter Plan of [...] + + documented in this encounter Results ERCP (03/18/2019 7:54 AM PDT) + + | Specimen | + + | | + + + + + | Narrative | Performed At | + + + | MRN: | [facility] | | [id number] Date: 03/18/2019Patient Name: Jake Hunter #: | ENDOSCOPY | | [id number] of : 1955CSN: [id number] Type: | | | AmbulatoryRoom: GI 3Procedure: [...] | | [facility] [facility] | | | (Hospital Security Officer)Referring MD: TRACI CHAVEZ, | | | MDRequesting Provider: Medicines: Cipro 400 mg IV, | | | Indomethacin 100 mg VT, Monitored | | | Anesthesia | | [...] The Olympus | | | [id number] Duodenoscope #[id number] was | | | introduced through the [...] A pancreatic stent was visible on the pound attendant | | | film. The esophagus was [...] | | stentRecommendation: admit to [facility] for post procedure pain | | | [...] Initiated | | | On: 03/18/2019 7:54 [facility] Letter to: MONISHA WALLER | | + + + + +---------+ + + | Performing | Address | City/State/Zipcode | Phone Number | | Organization | | | | + +---------+ + + | [facility] | | | | + +---------+ + + GI PROCEDURE UNIT FLUOROSCOPY (03/18/2019 7:08 AM PDT) + + | Specimen | [...] | acetaminophen (TYLENOL) tablet | Given | 03/19/20 | 650 mg | | | | 650 mg 650 mg, oral, EVERY 8 | | 19 8:20 | | | | | HOURS NEEDED, Starting Fri | | AM PDT | | | | | 03/19/19 at 0734, Until Fri | | | | | | | 03/19/19 at 2100, mild pain, first | | | | | | | line, multimodal pain control | | | | | | + +--------+ +--------+------+------+ +---+---+ | | | +---+---+ + +-------+ +-------+---+---+ | carvedilol (COREG) tablet 25 mg | Given | 03/19/20 | 25 mg | | | | 25 mg, oral, DAILY, First dose | | 19 8:20 | | | | | on Fri03/19/19 at 0900, Until | | AM PDT | | | | | Discontinued | | | | | | + +-------+ +-------+---+---+ +---+---+ | | | +---+---+ + +-------+ +--------+---+---+ | ciprofloxacin HCl (CIPRO) | Given | 03/19/20 | 500 mg | | | | tablet 500 mg 500 mg, oral, | | 19 8:20 | | | | | TWICE DAILY, 10 doses, First dose | | AM PDT | | | | | on Fri03/18/19 at 2100, Last | | | | | | | dose on Fri03/23/19 at 0900 | | | | | | + +-------+ +--------+---+---+ +-------+ +--------+---+---+ | Given | 03/18/20 | 500 mg | | | | | 19 8:54 | | | | | | PM PDT | | | | +-------+ +--------+---+---+ +---+---+ | | | +---+---+ + +-------+ +--------+---+---+ | fentaNYL (SUBLIMAZE) injection | Given | 03/18/20 | 50 mcg | | | | 25-50 mcg 25-50 mcg, | | 19 2:20 | | | | | intravenous, POSTPROCEDURE PRN, 8 | | PM PDT | | | | | doses, Starting Reshma 03/18/19 at | | | | | | | 0824, Until Reshma 03/18/19 at 1522, | | | | | | | severe pain while in Phase I | | | | | | | Recovery | | | | | | + +-------+ +--------+---+---+ +-------+ +--------+---+---+ | Given | 03/18/20 | 50 mcg | | | | | 19 10:58 | | | | | | AM PDT | | | | +-------+ +--------+---+---+ | Given | 03/18/20 | 25 mcg | | | | | 19 10:37 | | | | | | AM PDT | | | | +-------+ +--------+---+---+ + +---+ | | | + +---+ | HYDROmorphone (DILAUDID) | | | injection 0.5-1 mg 0.5-1 mg, | | | intravenous, EVERY 2 HOURS | | | NEEDED, Starting Reshma 03/18/19 at | | | 1429, Until Fri03/19/19 at 2100, | | | severe pain | | + +---+ | | | + +---+ + +-------+ +--------+---+---+ | indomethacin (INDOCIN) | Given | 03/18/20 | 100 mg | | | | suppository 100 mg 100 mg, | | 19 7:49 | | | | | rectal, ONCE, 1 dose, [facility] 03/18/19 | | AM PDT | | | | | at 0715 | | | | | | + +-------+ +--------+---+---+ +---+---+ | | | +---+---+ + +-------+ +-------+---+---+ | iohexol (OMNIPAQUE) 300 mg | Given | 03/18/20 | 12 mL | | | | iodine/mL INTRAPROCEDURE PRN, | | 19 9:06 | | | | | Starting Reshma 03/18/19 at 0906, | | AM PDT | | | | | Until Reshma 03/18/19 at 0906 | | | | | | + +-------+ +-------+---+---+ +---+---+ | | | +---+---+ + +---------+ + + +---+ | lactated ringers IV 10 mL/hr, | New Bag | 03/18/20 | 10 mL/hr | 10 mL/hr | | | intravenous, CONTINUOUS, Starting | | 19 7:52 | | | | | Reshma 03/18/19 at 0715, Until Reshma | | AM PDT | | | | | 03/18/19 at 1522 | | | | | | + +---------+ + + +---+ +---+---+ | | | +---+---+ + +---------+ + +---+---+ | lactated ringers IV 1,000 mL, | New Bag | 03/18/20 | 1,000 mL | | | | intravenous, ONCE, 1 dose, Reshma | | 19 10:33 | | | | | 03/18/19 at 1000 | | AM PDT | | | | + +---------+ + +---+---+ +---+---+ | | | +---+---+ + + + +-------+-------+---+ | lactated ringers IV 150 mL/hr, | Rate/Dos | 03/19/20 | 150 | 150 | | | intravenous, CONTINUOUS, | e Verify | 19 8:19 | mL/hr | mL/hr | | | Starting Reshma 03/18/19 at 1600, | | AM PDT | | | | | Until 03/19/19 at 2100 | | | | | | + + + +-------+-------+---+ +---------+ +-------+-------+---+ | New Bag | 03/19/20 | 150 | 150 | | | | 19 4:59 | mL/hr | mL/hr | | | | AM PDT | | | | +---------+ +-------+-------+---+ | New Bag | 03/18/20 | 150 | 150 | | | | 19 11:15 | mL/hr | mL/hr | | | | PM PDT | | | | +---------+ +-------+-------+---+ +---+---+ | | | +---+---+ + + + +---------+---+---------+ | lidocaine (LIDODERM) 5 % patch | Applied | 03/18/20 | 1 patch | | Abdomen | | 1 patch 1 patch, transdermal, | Patch | 19 4:48 | | | | | EVERY 24 HOURS, First dose on Reshma | | PM PDT | | | | | 03/18/19 at 1600, Until | | | | | | | Discontinued | | | | | | + + + +---------+---+---------+ +---+---+ | | | +---+---+ + +-------+ +-------+---+---+ | omeprazole (PRILOSEC) capsule | Given | 03/19/20 | 20 mg | | | | 20 mg 20 mg, oral, BEFORE | | 19 6:05 | | | | | BREAKFAST, First dose on Fri | | AM PDT | | | | | 03/19/19 at 0630, Until | | | | | | | Discontinued | | | | | | + +-------+ +-------+---+---+ +---+---+ | | | +---+---+ + +-------+ +------+---+---+ | ondansetron (ZOFRAN) injection | Given | 03/18/20 | 4 mg | | | | 4 mg 4 mg, intravenous, | | 19 10:17 | | | | | POSTPROCEDURE PRN, 1 dose, | | AM PDT | | | | | Starting Reshma 03/18/19 at 0824, | | | | | | | Until Reshma 03/18/19 at 1017, | | | | | | | nausea/vomiting, 1st line | | | | | | + +-------+ +------+---+---+ +---+---+ | | | +---+---+ + +-------+ +------+---+---+ | ondansetron ODT (ZOFRAN ODT) | Given | 03/18/20 | 8 mg | | | | tablet 8 mg 8 mg, oral, EVERY 8 | | 19 4:53 | | | | | HOURS NEEDED, Starting Reshma | | PM PDT | | | | | 03/18/19 at 1521, Until Fri | | | | | | | 03/19/19 at 2100, nausea/vomiting, | | | | | | | first line | | | | | | + +-------+ +------+---+---+ +---+---+ | | | +---+---+ + +-------+ +------+---+---+ | oxyCODONE (immediate release) | Given | 03/19/20 | 5 mg | | | | (ROXICODONE) tablet 5-10 mg 5-10 | | 19 11:50 | | | | | mg, oral, EVERY 3 HOURS | | AM PDT | | | | | NEEDED, Starting Reshma 03/18/19 at | | | | | | | 1428, Until 03/19/19 at 2100, | | | | | | | moderate pain | | | | | | + +-------+ +------+---+---+ +-------+ +------+---+---+ | Given | 03/19/20 | 5 mg | | | | | 19 6:05 | | | | | | AM PDT | | | | +-------+ +------+---+---+ | Given | 03/19/20 | 5 mg | | | | | 19 2:05 | | | | | | AM PDT | | | | +-------+ +------+---+---+ +---+---+ | | | +---+---+ + +-------+ +---------+---+---+ | promethazine (PHENERGAN) | Given | 03/18/20 | 6.25 mg | | | | injection 6.25-12.5 mg 6.25-12.5 | | 19 2:21 | | | | | mg, intravenous, POSTPROCEDURE | | PM PDT | | | | | PRN, 1 dose, Starting Reshma 03/18/19 | | | | | | | at 0824, Until Reshma 03/18/19 at | | | | | | | 1421, nausea/vomiting, 2nd line | | | | | | + +-------+ +---------+---+---+ +---+---+ | | | +---+---+ documented in this encounter
--- OUTSIDE RECORDS SUMMARY | ~2019-03-31 | XMS | Encounter Summary ---
Demographics + + + | Address | [address] | | | [place] [address] | + + + | Home Phone | | + + + | Preferred Language | Unknown | + + + | Marital Status | | + + + | Scientologist Affiliation | CAT | + + + | Race | White | + + + | Ethnic Group | Not or | + + + Author + + + | Author | [facility] | + + + | Organization | [facility] | + + + | Address | Unknown | + + + | Phone | Unavailable | + + + Support + + + + + | Name | Relationship | Address | Phone | + + + + + | Johann Duvall | ECON | [address] | | | | | [place] | | | | | [address] | | + + + + + Care Team Providers + +------+ + | Care Winemaker Name | Role | Phone | + [...] | | | | | Stay [address] [facility] | | | | | | [address] | | | | | | Mailcode: UHN65 | | | | | | [place] | | | | | | [address] [place], [place] | | | | | | [address] | | | | | | [phone] | | | +--------+ + + + [...] perfume, lotions or powder. Remove any nail yoruba from at least one fingernail. Do not [...] Surgery Check in Locations Day Stay Unit [facility], fourth floor Room 4515 Surgery Check in Time: Someone from your surgeon's office or [facility] will provide you with information regarding [...] it is after office hours, call the [facility] machine set up operator paper goods at [phone] and ask them to page your doc tor. documented in this encounter Plan of Treatment Not on filedocumented as of this encounter Visit Diagnoses Not on filedocumented in this encounter"
--- OUTSIDE RECORDS SUMMARY | ~2019-03-31 | XMS | Encounter Summary ---
Demographics + + + | Address | [address] | | | [place] [address] | + + + | Home Phone | | + + + | Preferred Language | Unknown | + + + | Marital Status | | + + + | Restoration Affiliation | CAT | + + + | Race | White | + + + | Ethnic Group | Not or | + + + Author + + + | Author | [facility] | + + + | Organization | [facility] | + + + | Address | Unknown | + + + | Phone | Unavailable | + + + Support + + + + + | Name | Relationship | Address | Phone | + + + + + | Johann Duvall | ECON | [address] | | | | | [place] | | | | | [address] | | + + + + + Care Team Providers + +------+ + | Care Employee Relations Director Name | Role | Phone | + [...] | | 2019 | | Center at [facility] [address] | MD [address] | about EUS/ERCP) | | | | [address] | [facility] | | | | | Mailcode: Center | [place], [place] | | | | | for Health and | [address] | | | | | [facility] 2 | [phone] | | | | | [place], [place] | | | | | | [address] | | | | | | [phone] | | | +--------+ + + + [...]
--- OUTSIDE RECORDS SUMMARY | ~2019-03-31 | XMS | Encounter Summary ---
Demographics + + + | Address | [address] | | | [place] [address] | + + + | Home Phone | | + + + | Preferred Language | Unknown | + + + | Marital Status | | + + + | Scientologist Affiliation | CAT | + + + | Race | White | + + + | Ethnic Group | Not or | + + + Author + + + | Author | [facility] | + + + | Organization | [facility] | + + + | Address | Unknown | + + + | Phone | Unavailable | + + + Support + + + + + | Name | Relationship | Address | Phone | + + + + + | Johann Duvall | ECON | [address] | | | | | [place] | | | | | [address] | | + + + + + Care Team Providers + +------+ + | Care Certified Surgical Technician Name | Role | Phone | + [...] Pharmacy | | | | | | [address] | | | | | | [facility] | | | | | | [place], [place] | | | | | | [address] | | | +--------+ + + + [...]
--- OUTSIDE RECORDS SUMMARY | ~2019-03-31 | XMS | Clinical Summary ---
Demographics + + + | Address | [address] | | | [place] [address] | + + + | Home Phone | | + + + | Preferred Language | Unknown | + + + | Marital Status | | + + + | Hoahaoism Affiliation | 1041 | + + + | Race | Unknown | + + + | Ethnic Group | Unknown | + + + Author + + + | Author | [facility] | | | and [place] | + + + | Organization | [facility] | | | and [place] | [...] Team Providers + +------+ + | Care Acid Splicer Name | Role | Phone | + +------+ + | Dallin Beaz DO | PP | Unavailable | + [...] | + + + +---------+------+------+-------+ | Saw [place] 500 | Take by mouth | | [...] +--------+ +---------+------+ | BCBS | BCBS | [id number] | 11/03/19 | | | PPO | | | OOS | 1 | 17-Pre | | | | | | PPO | | sent | | | | +---------+--------+ +--------+ +---------+------+ | [place] | [place]BS | [id number] | 11/03/19 | [phone] | | PPO [...] | 1955 | [phone] | [place] [address] | | | maura | | | 5 (Home) | | + +--------+ +--------+ + + | Jake Duvall | Person | Self | [birth year] | [address] | | | al/Fam | | 7 | [phone] | [place] [address] | | | maura | | | 5 (Home) | | + +--------+ +--------+ + + Advance Directives Patient has advance care planning documents on file. For more information, please contact:formerly [facility] [place] [address]
--- OUTSIDE RECORDS SUMMARY | ~2019-03-31 | XMS | Encounter Summary ---
Demographics + + + | Address | [address] | | | [place] [address] | + + + | Home Phone | | + + + | Preferred Language | Unknown | + + + | Marital Status | | + + + | Congregational Affiliation | CAT | + + + [...] [address] | | | | | [address] | | + + + + + Care Team Providers + +------+ + | Care Belt Polisher Name | Role | Phone | + +------+ + | Rosalind Nice | PCP | | + +------+ + Encounter Details +--------+ + + + + | Date | Type | Department | Care Team | Description | +--------+ + + + + | 02/02/ | Telephone | Digestive Health | Traci Brody | | | 2019 | | [place] at [facility] [address] | MD [address] | | | | | [address] | [address] | | | | | Mailcode: Center | [place], [place] | | | | | for Health and | [address] | | | | | [facility], [facility] 2 | [phone] | | | | | [place], [place] | | | | | | [address] | | | | | | [phone] | | | +--------+ + + + [...]
--- OUTSIDE RECORDS SUMMARY | ~2019-03-31 | XMS | Encounter Summary ---
Demographics + + + | Address | [address] | | | [place] [address] | + + + | Home Phone [...] [place] | | | | | [address] | | + + + + + Care Team Providers + +------+ + | Care Pizza Chef Name | Role | Phone | + [...]
--- OUTSIDE RECORDS SUMMARY | ~2019-03-31 | XMS | Encounter Summary ---
Demographics + + + | Address | [address] | | | [place] [address] | + + + | Home Phone | | + + + | Preferred Language | Unknown | + + + | Marital Status | | + + + | Hindu Affiliation | CAT | + + + | Race | White | + + + | Ethnic Group | Not or | + + + Author + + + | Author | [facility] | + + + | Organization | [facility] | + + + | Address | Unknown | + + + | Phone | Unavailable | + + + Support + + + + + | Name | Relationship | Address | Phone | + + + + + | Johann Duvall | ECON | [address] | | | | | [place] | | | | | [address] | | + + + + + Care Team Providers + +------+ + | Care Cub Reporter Name | Role | Phone | + [...] | | 2018 | | Center at [facility] [address] | MD [address] | from Patient | | | | [address] | [address] [facility] [address] | | | | | Mailcode: Center | [place], [place] | | | | | for Y'all and | [address] | | | | | [facility] 2 | [phone] | | | | | [place], [place] | | | | | | [address] | | | | | | [phone] | | | +--------+ + + + [...]
--- OUTSIDE RECORDS SUMMARY | ~2019-03-31 | XMS | Clinical Summary ---
Demographics + + + | Address | [address] | | | [place] [address] | + + + | Home Phone | | + + + | Preferred Language | Unknown | + + + | Marital Status | | + + + | Latter Day Affiliation | CAT | + + + [...] [place] | | | | | [address] | | + + + + + Care Team Providers + +------+ + | Care Tearer Name | Role | Phone | + +------+ + | Rosalind Nice | PP | | + +------+ + Source Comments KIMBERLI is fully live on both EpicCare Ambulatory and EpicCare InPatient.[facility] Allergies + + + + + + [...] | + + + +---------+------+------+-------+ | Saw [place] 500 | Take by mouth. | | [...] | | | Physician: | | | José | | | [...] | | | Saw | | | Rutledge | | | 500 mg | | [...] | | | [place] | | | [address] | | | [phone] | | | ROSALIND | | | [place] | | | . | | | Specialty: | | | Physician | | | AssistantCo | | | ntact | | | information | | | Pedro | | | Family | | | | | | 0 | | | [place] | | | ite | | | [address] | | | [place] | | | [phone] | | | [phone] | | | [...] +--------+ +---+ + + | 03/18/ | Auto Air Conditioning Apprentice | | Traci Chavez | Pancreatic duct [...] | | 2019 | | | MD Datlon | Received (DOS | | | | | | 01/18/19 CE[facility] Amylase | | | | | | reults; [facility] | | | | | | Diagnostics; Phone | | | | | | [phone]; Fax: | | | | | | [phone]) | +--------+ +---+ + + | 01/19/ [...] | | results. E | | | IP ARCHITECT:Impress | | | ion: | | | [...] Fish | | | | | | Oil-Carson-3 | | | Fatty | | | [...] | | | Saw | | | Rutledge | | | 500 mg | | [...] | | | Family | | | [id number] | | | 0 | | | [place] | | | ite | | | [address] | | | [place] | | | [phone] | | | [phone] | | | [...] | | | oriented | | | [id number] | | | | | | TPo linear, | | | TCo | | | appropriate | | | ly | | | focusedSkin | | | | | | no | | | rash/skin | | | changesEPIC | | | | | | DEPARTMENT: | | | Hosp | | | ([facility]) - | | | [id number] | | | joel of | | | Service: IP | | | - | | | [id number] | | | of Service: | | | 01/19/2019 | | | MEDICAL | | | RECORD | | | NUMBER | | | [id number] | | | | | | [id number] | | | odifiers:GC | | | Resident | | | Involved: | | | NoService: | | | PRIMARY | | | HOSPITALIST | | | Suggested | | | CPT: 61253 | | | Discharge | | | [...] + | MRN: | [facility] | | [id number] Date: 03/18/2019Patient Name: Jake Hunter #: | ENDOSCOPY | | [id number] of : 1955CSN: [id number] Type: | | | AmbulatoryRoom: GI 3Procedure: [...] | | GENECREST BASCON | | | (Laundry Laborer)Referring MD: TRACI CHAVEZ, | | | MDRequesting Provider: Medicines: Cipro 400 mg IV, | | | Indomethacin 100 mg OK, Monitored | | | Anesthesia | | [...] The Olympus | | | TJF-160VF Duodenoscope #[id number] was | | | introduced through the [...] A pancreatic stent was visible on the bods developer | | | film. The esophagus was [...] 2nd | | | stentRecommendation: admit to [facility] for post procedure pain | | [...] Initiated | | | On: 03/18/2019 7:54 [facility] Letter to: MONISHA BLACKMON | | [...] [facility] | [address] | [place] [address] | | | LYNN MELÉNDEZ | MAXIM [...] + + + | ECG | Prolonged OK interval | | [facility] DE[facility] | | [...] DEPT OF | [address] | [place], [place] | | | CARDIOLOGY | [address] | [address] | | + + + + + [...] FERNANDA | [address] | [place], [place] | | | DEXTER POINT OF CARE | [facility] | [address] | | | TESTS | | | [...] | | LAB | | | | [place] [address] | | | | + + + + + + + + | Specimen | + + | Fluid | + + + + + | Narrative | Performed At | + + + | See scanned | [facility] | | report for Technical Results and further Interpretation and Comments. | REFERENCE LAB | | | | | | | + + + + + + + + | Performing | Address | City/State/Zipcode | Phone Number | | Organization | | | | + + + + + | [facility] | | | | + + + + + | [facility] | [address] | [place] [address] | | | SERVICES, CORE | [address] | | | + + + + + | [facility] | see below | | [...] PathologistPathology, | | | | | | [facility] | | | | | | [facility] electronic | | | | | | [...] number | | | | | | [id number].A. Duodenum, | | | | | | [...] | + + + + + | [facility] | [address] | [place] [address] | | | PATHOLOGY | [address] | | | + + + + + ERCP (01/18/2019 8:25 AM PDT) + + | Specimen | + + | | + + + + + | Narrative | Performed At | + + + | MRN: | [facility] | | [id number] Date: 01/18/2019Patient Name: Jake Hunter | ENDOSCOPY | | #: [id number] of : 1955CSN: [id number] Type: | | | AmbulatoryRoom: GI 3Procedure: | | | ERCPIndications: Abdominal pain of suspected | | | pancreatic origin, focal PD | | | dilation in the HOP, anticipated PD | | | stentingProviders: TRACI CHAVEZ MD | | | (Doctor), DANIELLE XIONG RN | | | (Nurse), TRA GARCIA RN (Nurse), GENETextbook Rental CanadaCON | | | (Laundry Laborer)Referring | | | MD: TRACI CHAVEZ MDRequesting Provider: | | | Medicines: Indomethacin 100 mg OK, Monitored | | | Anesthesia CareComplications: No [...] The Olympus | | | TJF-160VF Duodenoscope #[id number] was | | | introduced through the [...] | Loss: Estimated blood loss: none.Findings: A bods developer | | | film of the abdomen [...] of Addenda: 0Note Initiated On: 01/18/2019 8:25 [facility] Letter | | | to: MONISHA [...] + | MRN: | [facility] | | [id number] Date: 01/18/2019Patient Name: Jake Hunter | ENDOSCOPY | | #: [id number] of : 1955CSN: [id number] Type: | | | AmbulatoryRoom: GI 3Procedure: [...] DANIELLE XIONG RN | | | (Nurse), GENETextbook Rental [place]CON | | | (Laundry Laborer)Referring MD: TRACI CHAVEZ, | | | MDRequesting [...] | procedure. The Olympus | | | [id number] Linear Echoendoscope #[id number] was | | | introduced through the mouth, | | | and advanced to the second | | | part of duodenum. The Olympus [id number] Endoscope | | | #[id number] was introduced | | | through the [...] | | 0Note Initiated On: 01/18/2019 8:19 [facility] Letter to: ROSALIND | | | [...] | x | 18-Pre | 8 | [address] | | | | STATE | | sent | | [place], | | | | | | | | [place] | | | | | | | | [address] | | + +--------+ +--------+ + +------+ [...] | 1954 | [phone] | [place] [address] | | | maura | | | [...]
--- OUTSIDE RECORDS SUMMARY | ~2019-03-31 | XMS | Encounter Summary ---
Demographics + + + | Address | [address] | | | [place] [address] | + + + | Home Phone | | + + + | Preferred Language | Unknown | + + + | Marital Status | | + + + | Caodaism Affiliation | CAT | + + + | Race | White | + + + | Ethnic Group | Not or | + + + Author + + + | Author | [facility] | + + + | Organization | [facility] | + + + | Address | Unknown | + + + | Phone | Unavailable | + + + Support + + + + + | Name | Relationship | Address | Phone | + + + + + | Johann Dvuall | ECON | [address] | | | | | [place] | | | | | [address] | | + + + + + Care Team Providers + +------+ + | Care Uke Driver Name | Role | Phone | + +------+ + PCP | Unavailable | + +------+ + Reason for Referral Consultation (Routine) +--------+--------+ + + + + [...] | acute | MD [address] | [address] | | | | | pancreatitis | [address] | Mailcode: | | | | | Pancreatic | [address] | Center for | | | | | cyst | [place], [place] | Health and | | | | | Procedures | [address] | Healing, | | | | | CONSULT TO | Phone: | [address] | | | | | [address] | [phone] | [place], [place] | | | | | [place] | Fax: | [address] | | | | | | [phone] | Phone: | | | | | | | [phone] | | | | | | | Fax: | | | | | | | [phone] | +--------+--------+ + + + + Encounter Details +--------+ + + + + | Date | Type | Department | Care Team | Description | +--------+ + + + + | 10/02/ | Ios Programmer | Digestive Health | Traci Brody | Recurrent acute | | 2018 | | Center at [facility] [address] | MD [address] | pancreatitis | | | | [address] | [address] | (Primary Dx); | | | | Mailcode: Center | [place], [place] | Pancreatic cyst | | | | for Health and | [address] | | | | | Healing, Building 2 | [phone] | | | | | [place], [place] | | | | | | [address] | | | | | | [phone] | | | +--------+ + + + [...]
--- OUTSIDE RECORDS SUMMARY | ~2019-03-31 | XMS | Encounter Summary ---
Demographics + + + | Address | [address] | | | [place] [address] | + + + | Home Phone | | + + + | Preferred Language | Unknown | + + + | Marital Status | | + + + | Presybeterian Affiliation | 1041 | + + + | Race | Unknown | + + + | Ethnic Group | Unknown | + + + Author + + + | Author | [facility] | | | and [place] | + + + | Organization | [facility] | | | and [place] [...] Team Providers + +------+ + | Care Sales Record Clerk Name | Role | Phone | [...] + + | 05/20/ | Telephone | [facility] | Jamar Foreman | Follow-up (ERCP at | | 2019 | | GASTROENTEROLOGY | MD [address] | [facility] ) | | | | [address] [place] | [address] [place] | | | | | [address] [place], [place] | [place] [address] | | | | | [address] | [phone] | | | | | [phone] | | | +--------+ + + + [...]
--- OUTSIDE RECORDS SUMMARY | ~2019-03-31 | XMS | Encounter Summary ---
Demographics + + + | Address | [address] | | | [place] [address] | + + + | Home Phone | | + + + | Preferred Language | Unknown | + + + | Marital Status | | + + + | Latter-Day Affiliation | CAT | + + + [...] [address] | | | | | [address] | | + + + + + Care Team Providers + +------+ + | Care Card Reader Name | Role | Phone | + [...] | | pancreatitis | [address] | [facility] | | | | | Pancreatic | [facility] | Mailcode: | | | | | cyst | [place], [place] | [address] | | | | | Procedures | [address] | [place] | | | | | CONSULT TO | Phone: | [address] | | | | | GI | [phone] | [place], | | | | | PROCEDURE: | Fax: | [place] [address] | | | | | ERCP / | [phone] | Phone: | | | | | BILIARY | | [phone] | | | | | MANOMETRY | | Fax: | | | | | CONSULT TO | | [phone] | | | | | GI PROCEDURE | | | | | | | UNIT: EUA | | | | | | | UP OR LOW | | | | | | | MI ANES UPR | | | | | | | GI NDSC PX | | | | | | | NOS MI UPPR | | | | | | | GI ENDO W | | | | | | | FN BX, US | | | | | | | EXAM MI | | | | | | | ERCP,BIOPSY | | | | | | | MI | | | | | | | ERCP,SPHINCT | | | | | | | EROTOMY MI | | | | | | | ERCP,W/REMOV | | | | | | | AL | | | | | | | STONE,STARLA/PA | | | | | | | NCR DUCTS | | | | | | | MI ERCP | | | | | | | W/PLACE OF | | | | | | | ENDOSCOPIC | | | | | | | STENT MI | | | | | | | ERCP | | | | | | | W/REMOVAL | | | | | | | FOREIGN BODY | | | | | | | OR STENT | | | | | | | MI ERCP | | | | | | | W/REMOV AND | | | | | | | EXCHANGE OF | | | | | | | STENT MI | | | | | | | ERCP W/TRANS | | | | | | | ENDOSCOPI | | | | | | | BALLOON | | | | | | | DILATION OF | | | | | | | DUCT MI | | | | | | | [...] | | | | acute | MD [address] | [address] | | | | | pancreatitis | [address] | Mailcode: | | | | | Pancreatic | [address] | Center for | | | | | cyst | [place], [place] | Health and | | | | | Procedures | [address] | Healing, | | | | | CONSULT TO | Phone: | [address] | | | | | [address] | [phone] | [place], [place] | | | | | [place] | Fax: | [address] | | | | | | [phone] | Phone: | | | | | | | [phone] | | | | | | | Fax: | | | | | | | [phone] | +--------+--------+ + + + + Encounter Details +--------+---------+ + + + | Date | Type | Department | Care Team | Description | +--------+---------+ + + + | 12/16/ | Office | Digestive Health | | Chronic diarrhea | | 2019 | Visit | Center at [facility] [address] | | (Primary Dx); | | | | [address] | | Recurrent acute | | | | Mailcode: Center | | pancreatitis; | | | | for Health and | | Pancreatic cyst | | | | Healing, Building [address] | | | | | | [place], [place] | | | | | | [address] | | | | | | [phone] | | | +--------+---------+ + + + [...] an upper endoscopic ultrasound and possible E COLOR TECHNICIAN. This will allow me to obtain some [...] to call our clinic with any questions. [phone] Traci Chavez MD documented in this encounter [...] abdominal pain it always goes to the [facility]. Hospitalized for abdominal/back pain. Occurs about 3x [...] transduodenal approach. A stylet was used. A head of insight was prese nt and performed a preliminary [...] powder Mix in liquid and drink. Fish Oil-[place]-3 Fatty Acids (FISH OIL) 340-1,000 mg oral capsule Take 2,000 mg by mout h. losartan 100 mg oral tablet Take 100 mg by mouth. Melatonin 5 mg oral tablet Take 10 mg by mouth. omeprazole 20 mg oral capsule,delayed release(DR/EC) Take 20 mg by mouth. ondansetron ODT 4 mg oral tablet,disintegrating Dissolve 4 mg on tongue and swallow. Saw [place] 500 mg oral capsule Take by mouth. [...] and referring provider. Traci Chavez MD, SHYAM Criminology Teacher Gastroenterology Office telephone: [phone] Nurse: [place] Email: [email or web address] I, Amaury Velazquez, am functioning as a scribe for Dr. Traci Chavez MD. I have reviewed and verified the above scribed note of my visit with this patient as record ed by Amaury Velazquez. TRACI CHAVEZ MD [facility] 6TH FLOOR [address] Mailcode: [facility] [place] [address] documented in th is encounter [...] by | | | | | | [address] | | | | | | Sheri Tavarez [facility] | | | | | | [address] | | | | | | [phone]. 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
--- OUTSIDE RECORDS SUMMARY | ~2019-03-31 | XMS | Encounter Summary ---
Demographics + + + | Address | [address] | | | [place] [address] | + + + | Home Phone | | + + + | Preferred Language | Unknown | + + + | Marital Status | | + + + | Baptism Affiliation | CAT | + + + | Race | White | + + + | Ethnic Group | Not or | + + + Author + + + | Author | [facility] | + + + | Organization | [facility] | + + + | Address | Unknown | + + + | Phone | Unavailable | + + + Support + + + + + | Name | Relationship | Address | Phone | + + + + + | Johann Duvall | ECON | [address] | | | | | [address] | | | | | [address] | | + + + + + Care Team Providers + +------+ + | Care Pattern Maker Programer Name | Role | Phone | + [...] | | | | | cyst | [place], [place] | Health and | | | | | Procedures | [address] | Healing, | | | | | CONSULT TO | Phone: | [address] | | | | | [address] | [phone] | [place], [place] | | | | | [place] | Fax: | [address] | | | | | | [phone] | Phone: | | | | | | | [phone] | | | | | | | Fax: | | | | | | | [phone] | +--------+--------+ + + + + Encounter Details +--------+ + + + + | Date | Type | Department | Care Team | Description | +--------+ + + + + | 10/02/ | Construction Services Technician | Digestive Health | Traci Brody | Recurrent acute | | 2018 | | Center at [facility] [address] | [address] | pancreatitis | | | | [address] | [address] | (Primary Dx); | | | | Mailcode: Center | [place], [place] | Pancreatic cyst | | | | for Health and | [address] | | | | | Healing, Building [address] | [phone] | | | | | [place], [place] | | | | | | [address] | | | | | | [phone] | | | +--------+ + + + [...]
--- OUTSIDE RECORDS SUMMARY | ~2019-03-31 | XMS | Encounter Summary ---
Demographics + + + | Address | [address] | | | [place] [address] | + + + | Home Phone | | + + + | Preferred Language | Unknown | + + + | Marital Status | | + + + | Taoism Affiliation | CAT | + + + [...] [address] | | | | | [address] | | + + + + + Care Team Providers + +------+ + | Care Legal Intern Name | Role | Phone | [...] | | stricture | Toy Dudley | [facility] | | | | | Procedures | [address] | Mailcode: | | | | | CONSULT TO | [place], [place] | [address] | | | | | GI | [address] | [place] | | | | | PROCEDURE: | Phone: | [address] | | | | | ERCP / | [phone] | [place], | | | | | [place] | Fax: | [place] [address] | | | | | [place] | [phone] | Phone: | | | | | | | [phone] | | | | | | | Fax: | | | | | | | [phone] | + +--------+ + + + + Encounter Details +--------+ + + + + | Date | Type | Department | Care Team | Description | +--------+ + + + + | 03/18/ | Mottle Lay Up Operator | Digestive Health | Traci Brody | 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
--- OUTSIDE RECORDS SUMMARY | ~2019-03-31 | XMS | Encounter Summary ---
Demographics + + + | Address | [address] | | | [place] [address] | + + + | Home Phone [...] [address] | | | | | [address] | | + + + + + Care Team Providers + +------+ + | Care Diet Clerk Name | Role | Phone | [...] | | stricture | Toy Dudley | [facility] | | | | | Procedures | [facility] | Mailcode: | | | | | CONSULT TO | [place], [place] | [address] | | | | | GI | [address] | [place] | | | | | PROCEDURE: | Phone: | [address] | | | | | ERCP / | [phone] | [place], | | | | | BILI[place] | Fax: | [place] [address] | | | | | [place] | [phone] | Phone: | | | | | AL ANES UPR | | [phone] | | | | | GI NDSC PX | | Fax: | | | | | NOS AL | | [phone] | | | | | ERCP,BIOPSY | | | | | | | AL | | | | | | | ERCP,SPHINCT | | | | | | | EROTOMY AL | | | | | | | ERCP,W/REMOV | | | | | | | AL | | | | | | | STONE,STARLA/PA | | | | | | | NCR DUCTS | | | | | | | AL ERCP | | | | | | | W/PLACE OF | | | | | | | ENDOSCOPIC | | | | | | | STENT AL | | | | | | | ERCP | | | | | | | W/REMOVAL | | | | | | | FOREIGN BODY | | | | | | | OR STENT | | | | | | | AL ERCP | | | | | | | W/REMOV AND | | | | | | | EXCHANGE OF | | | | | | | STENT AL | | | | | | | ERCP W/TRANS | | | | | | | ENDOSCOPI | | | | | | | BALLOON | | | | | | | DILATION OF | | | | | | | DUCT AL | | | | | | [...] | | 2019 | | Center at [facility] | MD [address] | | | | | [address] | [facility] | | | | | Mailcode: Center | [place], [place] | | | | | [facility] and | [address] | | | | | [place] [address] | [phone] | | | | | [place], [place] | | | | | | [address] | | | | | | [phone] | | | +--------+ + + + [...]
--- OUTSIDE RECORDS SUMMARY | ~2019-03-31 | XMS | Encounter Summary ---
Demographics + + + | Address | [address] | | | [place] [address] | + + + | Home Phone | | + + + | Preferred Language | Unknown | + + + | Marital Status | | + + + | Christianity Affiliation | CAT | + + + [...] [address] | | | | | [address] | | + + + + + Care Team Providers + +------+ + | Care Associate Research Scientist Name | Role | Phone | [...] [address] | | | | | | [place], [place] | | | | | | [address] | | | | | | [phone] | | | +--------+------+ + + + [...] by | | | | | | [facility],[address] | | | | | | Sheri Tavarez, [facility],[place] | | | | | | [address] | | | | | | [phone].[employer]. | | | | | | Reza [...] [facility] | [address] | [place], [place] | | | [facility] | | [address] | | + + + + + documented in this encounter Visit Diagnoses + + | Diagnosis | + + | Chronic diarrhea Diarrhea | + + documented in this encounter"
--- OUTSIDE RECORDS SUMMARY | ~2019-03-31 | XMS | Encounter Summary ---
Demographics + + + | Address | [address] | | | [place] [address] | + + + | Home Phone | | + + + | Preferred Language | Unknown | + + + | Marital Status | | + + + | Confucianist Affiliation | CAT | + + + [...] [address] | | | | | [address] | | + + + + + Care Team Providers + +------+ + | Care Dryer Feeder Name | Role | Phone | + [...] | Procedural Unit at | MD [address] | | | | Order | [facility] | [facility] | | | | | [address] | [place], [place] | | | | | Mailcode: OC2L | [address] | | | | | [facility] | [phone] | | | | | and Healing, | | | | | | Building [address] | | | | | | [place], [place] | | | | | | [address] | | | | | | [phone] | | | +--------+ + + + [...] + | MRN: | [facility] | | [id number] Date: 01/18/2019Patient Name: Jake Hunter | ENDOSCOPY | | #: [id number] of : 1955CSN: [id number] Type: | | | AmbulatoryRoom: GI 3Procedure: | | | ERCPIndications: Abdominal pain of suspected | | | pancreatic origin, focal PD | | | dilation in the HOP, anticipated PD | | | stentingProviders: HOSSEIN CHAVEZ MD | | | (Doctor), DANIELLE XIONG RN | | | (Nurse), TRA WEST, RN (Nurse), GENECREST BASCON | | | (Furnace Mechanic)Referring | | | MD: HOSSEIN CHAVEZ MDRequesting Provider: | | | Medicines: Indomethacin 100 mg MD, Monitored | | | Anesthesia CareComplications: No [...] The Olympus | | | TJF-160VF Duodenoscope #[id number] was | | | introduced through the [...] | Loss: Estimated blood loss: none.Findings: A vise hand | | | film of the abdomen [...] of Addenda: 0Note Initiated On: 01/18/2019 8:25 [facility] Letter | | | to: MONISHA [...] + | MRN: | [facility] | | [id number] Date: 01/18/2019Patient Name: Jake Hunter | ENDOSCOPY | | #: [id number] of : 1955CSN: [id number] Type: | | | AmbulatoryRoom: GI 3Procedure: [...] DANIELLE XIONG RN | | | (Nurse), 3CI | | | (Furnace Mechanic)Referring MD: HOSSEIN CHAVEZ, | | | MDRequesting [...] | procedure. The Olympus | | | [id number] Linear Echoendoscope #[id number] was | | | introduced through the mouth, | | | and advanced to the second | | | part of duodenum. The Olympus [id number] Endoscope | | | #[id number] was introduced | | | through the [...] | | 0Note Initiated On: 01/18/2019 8:19 [facility] Letter to: ELIJAH | | | [...]
--- OUTSIDE RECORDS SUMMARY | ~2019-03-31 | XMS | Encounter Summary ---
Demographics + + + | Address | [address] | | | [place] [address] | + + + | Home Phone [...] + + + | Author | [facility] | + + + | Organization | [facility] | + + + | Address | Unknown | + + + | Phone | Unavailable | + + + Support + + + + + | Name | Relationship | Address | Phone | + + + + + | Johann Duvall | ECON | [address] | | | | | [place] | | | | | [address] | | + + + + + Care Team Providers + +------+ + | Care Children'S Court Magistrate Name | Role | Phone | + [...] + + | 03/18/ | Hospital | [facility] [address] | Traci Chavez | | | 2019 - | Encounter | [address] | MD [address] | | | | | [address]/[address] ELIS[address] | [address] | | | 03/19/ | | TEVIN [place], | [place], [place] | | | 2018 | | [place] [address] | [address] | | | | | [phone] | [phone] | | | | | | | | | | | | José Roman, | | | | | | [address] | | | | | | [address] | | | | | | [place], [place] | | | | | | [address] | | | | | | [phone] | | | | | | | [...] Roman MD - 03/19/2019 8:05 AM PDT [facility] Discharge Summary Discharging Provider: José Roman MD [...] ORAL Take by mouth. naloxone 4 mg/actuation [place] Instill into nostril for opioid overdose. Repeat with second device into other nostril afte r 2-3 minutes if no or minimal response. omeprazole 20 mg Cpdr Commonly known as: PRILOSEC Take 20 mg by mouth. ondansetron ODT 4 mg Tbdi Commonly known as: ZOFRAN ODT Dissolve 4 mg on tongue and swallow. Saw [place] 500 mg Cap Take by mouth. sildenafil [...] follow-up appointment in 3-4 weeks Contact information [address] [place] [address] [place] [address] MONISHA WALLER . Specialty: Physician Director Of Social Work Contact information [address] [facility] [place] [address] Discharge Physical Exam: Last 24 [...] + + +---------+ + + | [address] | Take by mouth. | | [...] Bailee Culp MD Gastroenterology Fellow GI pager [phone] INTERVAL EVENTS/SUBJECTIVE - mild pain in the [...] A pancreatic stent was visible on the help desk intern film. The esophagus was successfully intubated under [...] place a 2nd stent Recommendation: admit to [facility] for post procedure pain mgmt (report given to Dr Sue calvert) aggressive IVF with LR Cipro x 5 days given RP contrast injection D/c to home once able to take po well I will arrange a fu phone call in 3-4 weeks and repeat ERCP in 8-12 weeks Traci Chavez MD Gastroenterology Pager [phone] [email or web address], Cm Hoffman MD - 03/18/2019 7:59 AM PDTFormatting of this note might be different from the origin al. PRE PROCEDURE NOTE: MR# [id number] Subjective: Jake Duvall is a 63 y.o. [...] + | MRN: | [facility] | | [id number] Date: 03/18/2019Patient Name: Jake Hunter #: | ENDOSCOPY | | [id number] of : 1955CSN: [id number] Type: | | | AmbulatoryRoom: GI 3Procedure: [...] | | GENECREST BASCON | | | (Internal Sales)Referring MD: TRACI CHAVEZ, | | | MDRequesting Provider: Medicines: Cipro 400 mg IV, | | | Indomethacin 100 mg [place], Monitored | | | Anesthesia | | [...] The Olympus | | | TJF-160VF Duodenoscope #[id number] was | | | introduced through the [...] A pancreatic stent was visible on the help desk intern | | | film. The esophagus was [...] 2nd | | | stentRecommendation: admit to [facility] for post procedure pain | | [...] Initiated | | | On: 03/18/2019 7:54 [facility] Letter to: MONISHA WALLER | | + [...] | | | rectal, ONCE, 1 dose, [facility] 03/18/19 | | AM PDT | | [...]
--- OUTSIDE RECORDS SUMMARY | ~2019-03-31 | XMS | Encounter Summary ---
Demographics + + + | Address | [address] | | | [place] [address] | + + + | Home Phone | | + + + | Preferred Language | Unknown | + + + | Marital Status | | + + + | Taoism Affiliation | CAT | + + + | Race | White | + + + | Ethnic Group | Not or | + + + Author + + + | Author | [facility] | + + + | Organization | [facility] | + + + | Address | Unknown | + + + | Phone | Unavailable | + + + Support + + + + + | Name | Relationship | Address | Phone | + + + + + | Johann Duvall | ECON | [address] | | | | | [place] | | | | | [address] | | + + + + + Care Team Providers + +------+ + | Care Grill Attendant Name | Role | Phone | + [...] + + | 01/18/ | Hospital | [place] [address] | Traci Chavez | | | 2019 - | Encounter | [address] | MD [address] | | | | | [facility] | [address] | | | 01/19/ | | HOSPITAL [place], | [place], [place] | | | 2018 | | [place] [address] | [address] | | | | | [phone] | | | | | | | | | | | | Renee Abad MD | | | | | | [address] | | | | | | [address] [place], | | | | | | [place] [address] | | | | | | [phone] | | | | | | | [...] he original. Clinical Hospitalist Service Discharge Summary [facility] Discharging Provider: Chantal Abad MD Discharging Attending [...] findings as above in hospital course. See [facility] for additional details of labs, imaging, [...] in any 24-hour period. naloxone 4 mg/actuation [place] Instill into nostril for opioid overdose. Repeat [...] OIL 340-1,000 mg Cap Generic drug: Fish Oil-Ridgway-3 Fatty Acids Take 2,000 mg by mouth. [...] 4 mg on tongue and swallow. Saw [place] 500 mg Cap Take by mouth. sildenafil [...] get home MONISHA WALLER . Specialty: Physician Product Test Specialist Contact information [address] [facility] [place] [address] Discharge Physical Exam: Last 24 hour min/max [...] Skin no rash/skin changes EPIC DEPARTMENT: Hosp ([facility]) - [id number] Place of Service: - Date of Service: 01/19/2019 [facility] [id number] Modifiers:GC Resident Involved: No Service: PRIMARY HOSPITALIST Suggested CPT: 64616 Discharge Management > 30 minute I spent more than >30 minutes [id number] with the patient of which greater than 50% was s pent on discharge coordination. Chantal Abad MD Bead Supervisor Division of Hospital Medicine [facility] documented in this encou nter Discharge Instructions [...] + + +---------+ + + | [address] [place] 500 | Take by mouth. 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 PRE PROCEDURE NOTE: MR# [id number] Subjective: Jake Duvall is a 63 y.o. [...] + + | [facility] | [address] | [place] [address] | | | SERVICES, CORE | MAXIM [...] + + + | ECG | Prolonged MD interval | | [facility] | | [...] OF | [address] | [place], [place] | | | CARDIOLOGY | [address] | [address] | | + + + + + [...] | + + + + + | [facility] | [address] | [place] [address] | | | SERVICES, LYNN | MAXIM [...] (H) | 60 - 99 mg/dL | [facility] - | | | GLUCOSE, | | [...] FERNANDA | [address] | [place], [place] | | | DEXTER POINT OF CARE | [address] | [address] | | | TESTS | | | [...] [facility] | | | LAB NAME | [facility] | | REFERENCE | | | | [address] | | LAB | | | | [place] [address] | | | | + + + [...] | + + + + + | [facility] | | | | + + + + + | [facility] | [address] | [place] [address] | | | SERVICES, CORE | [address] | | | + + + + + | [facility] | see below | | [...] PathologistPathology, | | | | | | [facility] | | | | | | [facility] electronic | | | | | | [...] number | | | | | | [id number].A. Duodenum, | | | | | | [...] | + + + + + | [facility] | [address] | [place] [address] | | | PATHOLOGY | [address] | | | + + + + + ERCP (01/18/2019 8:25 AM PDT) + + | Specimen | + + | | + + + + + | Narrative | Performed At | + + + | MRN: | [facility] | | [id number] Date: 01/18/2019Patient Name: Jake Hunter | ENDOSCOPY | | #: [id number] of : 1955CSN: [id number] Type: | | | AmbulatoryRoom: GI 3Procedure: | | | ERCPIndications: Abdominal pain of suspected | | | pancreatic origin, focal PD | | | dilation in the HOP, anticipated PD | | | stentingProviders: TRACI CHAVEZ MD | | | (Doctor), DANIELLE XIONG RN | | | (Nurse), ENEDINA GARCIA, RN (Nurse), Finexkap | | | (Timber Grader)Referring | | | MD: TRACI CHAVEZ MDRequesting [...] The Olympus | | | TJF-160VF Duodenoscope #[id number] was | | | introduced through the [...] | Loss: Estimated blood loss: none.Findings: A senior mortgage loan processor | | | film of the abdomen [...] of Addenda: 0Note Initiated On: 01/18/2019 8:25 [facility] Letter | | | to: MONISHA [...] + | MRN: | [facility] | | [id number] Date: 01/18/2019Patient Name: Jake Hunter | ENDOSCOPY | | #: [id number] of : 1955CSN: [id number] Type: | | | AmbulatoryRoom: GI 3Procedure: [...] DANIELLE XIONG RN | | | (Nurse), GENEHydrophi | | | (Timber Grader)Referring MD: TRACI CHAEVZ, | | | MDRequesting Provider: Medicines: Monitored [...] | procedure. The Olympus | | | [id number] Linear Echoendoscope #[id number] was | | | introduced through the mouth, | | | and advanced to the second | | | part of duodenum. The Olympus GIF-H190 Endoscope | | | #[id number] was introduced | | | through the [...] | | 0Note Initiated On: 01/18/2019 8:19 [facility] Letter to: ROSALIND | | | [...]
--- OUTSIDE RECORDS SUMMARY | ~2019-03-31 | XMS | Encounter Summary ---
Demographics + + + | Address | [address] | | | [place] [address] | + + + | Home Phone [...] [address] | | | | | [address] | | + + + + + Care Team Providers + +------+ + | Care Freelance Writer Name | Role | Phone | + [...] | | 2019 | | Center at [facility] [address] | MD [address] | | | | | [address] | [address] | | | | | Mailcode: Center | [place], [place] | | | | | for Health and | [address] | | | | | [facility] 2 | [phone] | | | | | [place], [place] | | | | | | [address] | | | | | | [phone] | | | +--------+ + + + [...]
--- OUTSIDE RECORDS SUMMARY | ~2019-03-31 | XMS | Encounter Summary ---
Demographics + + + | Address | [address] | | | [place] [address] | + + + | Home Phone | | + + + | Preferred Language | Unknown | + + + | Marital Status | | + + + | Druze Affiliation | CAT | + + + | Race | White | + + + | Ethnic Group | Not or | + + + Author + + + | Author | [facility] | + + + | Organization | [facility] | + + + | Address | Unknown | + + + | Phone | Unavailable | + + + Support + + + + + | Name | Relationship | Address | Phone | + + + + + | Johann Duvall | ECON | [address] | | | | | [place] | | | | | [address] | | + + + + + Care Team Providers + +------+ + | Care Sandwich Maker Name | Role | Phone | + +------+ + | Rosalind Nice | PCP | | + +------+ + Encounter Details +--------+ + + + + | Date | Type | Department | Care Team | Description | +--------+ + + + + | 08/11/ | Outside | UNKNOWN DEPARTMENT | Other, Faculty | | | 2018 | Records | [address] [facility] | [phone] | | | | | [facility] | | | | | | [place], [place] | | | | | | [address] | | | +--------+ + + + [...] | + +--------+ + + + | OUTSIDE RADIOLOGY - | | 08/11/2018 | | Results for this | | CT | | 12:00 AM | | procedure are in the | | | | PDT | | results section. | + +--------+ + + + documented in this encounter Results OUTSIDE RADIOLOGY - CT (08/11/2018 12:00 AM PDT) + + + | Narrative | Performed At | + + + | | | + + + documented in this encounter Visit Diagnoses Not on filedocumented in this encounter"
--- OUTSIDE RECORDS SUMMARY | ~2019-03-31 | XMS | Encounter Summary ---
Demographics + + + | Address | [address] | | | [place] [address] | + + + | Home Phone | | + + + | Preferred Language | Unknown | + + + | Marital Status | | + + + | Gnosticism Affiliation | CAT | + + + [...] [address] | | | | | [address] | | + + + + + Care Team Providers + +------+ + | Care Aviation Maintenance Instructor Name | Role | Phone | + [...] + + | 08/16/ | Emergency | [facility] | | | | 2013 | | Department [address] | | | | | | [address] | | | | | | [facility] | | | | | | [place] [address] | | | | | | [phone] | | | +--------+ + + + [...]
--- OUTSIDE RECORDS SUMMARY | ~2019-03-31 | XMS | Encounter Summary ---
Demographics + + + | Address | [address] | | | [place] [address] | + + + | Home Phone | | + + + | Preferred Language | Unknown | + + + | Marital Status | | + + + | Samaritan Affiliation | CAT | + + + | Race | White | + + + | Ethnic Group | Not or | + + + Author + + + | Author | [facility] | + + + | Organization | [facility] | + + + | Address | Unknown | + + + | Phone | Unavailable | + + + Support + + + + + | Name | Relationship | Address | Phone | + + + + + | Johann Duvall | ECON | [address] | | | | | [address] | | | | | [address] | | + + + + + Care Team Providers + +------+ + | Care Railroad Wheels And Axles Inspector Name | Role | Phone | + [...] Encounter, Provider, | | | | | [facility] | MD [address] | | | | | [address] | [place] [address] | | | | | Mailcode: OC2L | | | | | | [place] [facility] | | | | | | and Healing, | | | | | | [address] | | | | | | [place], [place] | | | | | | [address] | | | | | | [phone] | | | +--------+ + + + [...] + | MRN: | [facility] | | [id number] Date: 03/18/2019Patient Name: Jake Hunter #: | ENDOSCOPY | | [id number] of : 1955CSN: [id number] Type: | | | AmbulatoryRoom: GI 3Procedure: [...] | | GENECREST BASCON | | | (Automatic Presser)Referring MD: HOSSEIN CHAVEZ, | | | MDRequesting Provider: Medicines: Cipro 400 mg IV, | | | Indomethacin 100 mg [place], Monitored | | | Anesthesia | | [...] The Olympus | | | TJF-160VF Duodenoscope #[id number] was | | | introduced through the [...] A pancreatic stent was visible on the grain processor | | | film. The esophagus was [...] 2nd | | | stentRecommendation: admit to [facility] for post procedure pain | | | [...] Initiated | | | On: 03/18/2019 7:54 [facility] Letter to: MONISHA BLACKMON | | + + + + +---------+ + + | Performing | Address | City/State/[facility] | Phone Number | | Organization [...]
--- OUTSIDE RECORDS SUMMARY | ~2019-03-31 | XMS | Encounter Summary ---
Demographics + + + | Address | [address] | | | [place] [address] | + + + | Home Phone | | + + + | Preferred Language | Unknown | + + + | Marital Status | | + + + | Samaritan Affiliation | CAT | + + + | Race | White | + + + | Ethnic Group | Not or | + + + Author + + + | Author | [facility] | + + + | Organization | [facility] | + + + | Address | Unknown | + + + | Phone | Unavailable | + + + Support + + + + + | Name | Relationship | Address | Phone | + + + + + | Johann Duvall | ECON | [address] | | | | | [address] | | | | | [address] | | + + + + + Care Team Providers + +------+ + | Care Corporate Vp Advertising & Online Name | Role | Phone | + [...] | Event | Procedural Unit at | [facility] [address] | | | | | Debbie Weheler [address] | [address] | | | | | [address] | [place], [place] | | | | | Road Mailcode: | [address] | | | | | [address] | [phone] | | | | | [address] | | | | | | [place], [place] | | | | | | [address] | | | | | | [phone] | | | +--------+ + + + [...]
--- OUTSIDE RECORDS SUMMARY | ~2019-03-31 | XMS | Encounter Summary ---
Demographics + + + | Address | [address] | | | [place] [address] | + + + | Home Phone [...] [address] | | | | | [address] | | + + + + + Care Team Providers + +------+ + | Care Form Coverer Name | Role | Phone | + +------+ + | Rosalind Nice | PCP | | + +------+ + Encounter Details +--------+ + + + + | Date | Type | Department | Care Team | Description | +--------+ + + + + | 08/11/ | Outside | UNKNOWN DEPARTMENT | Other, Faculty | | | 2018 | Records | [address] | [phone] | | | | | [facility] | | | | | | [place], [place] | | | | | | [address] | | | +--------+ + + + [...]
[2019-03-31] MEDS ORDERED: COREG12.5 MG PO (04:33)
== END 2019-03-31 16:45 | disposition short-term general hospital (02) ==
LOC: ED 04:15
DX: K85.90 Acute pancreatitis without necrosis or infection, unspecified (principal); T85.79XA Infection and inflammatory reaction due to other internal prosthetic devices, implants and grafts, initial encounter; I10 Essential (primary) hypertension; E78.5 Hyperlipidemia, unspecified; Z87.891 Personal history of nicotine dependence; Z88.8 Allergy status to other drugs, medicaments and biological substances; Z79.899 Other long term (current) drug therapy
CPT/HCPCS: 74160; 74177; 80053; 81001; 83690; 85025; 96361; 99284-25; J1170; J1200; J2405; J2543; J2765; J3010; J7030; J7060; J7120; Q9967

== ENCOUNTER 2023-03-22 21:12 | Emergency (ER) | payer OTHER, BC ==
[~2023-03-22] VITALS: Ht 180.3 cm; Wt 93.9 kg
[~2023-03-22 21:12] MED LIST changes: +COREG12.5 MG PO
[2023-03-22] MEDS ORDERED: IRBESARTAN300 MG PO (21:56)
[2023-03-22 23:13] VITALS: BP 140/98
== END 2023-03-22 23:13 | disposition home or self-care (01) ==
LOC: ED 21:12
DX: S06.0X0A Concussion without loss of consciousness, initial encounter (principal); S16.1XXA Strain of muscle, fascia and tendon at neck level, initial encounter; S40.012A Contusion of left shoulder, initial encounter; V43.52XA Car driver injured in collision with other type car in traffic accident, initial encounter; I10 Essential (primary) hypertension; E78.5 Hyperlipidemia, unspecified; Z87.891 Personal history of nicotine dependence; Z88.8 Allergy status to other drugs, medicaments and biological substances; Z79.899 Other long term (current) drug therapy
CPT/HCPCS: 70450; 72125; 73030; 99284-25

== ENCOUNTER 2024-12-16 13:24 | Emergency (ER) | payer BC ==
[~2024-12-16] VITALS: Ht 180.3 cm; Wt 96.6 kg
[2024-12-16 15:26] LABS: BASOPHILS 0.4 % (0-2); EOSINOPHILS 0.8 % (0-6); HEMATOCRIT 41.1 % (35.0-50.0); HEMOGLOBIN 13.9 g/dL (12.0-18.0); LYMPHOCYTES 15.5 % (24-44); MCH 29.9 (27-36); MCHC 33.7 g/dl (30-36); MCV 88.8 fl (81-99); MONOCYTES 9.8 % (0-12); NEUTROPHILS 73.5 % (39-80); PLATELET COUNT 228 K/uL (140-440); RBC 4.63 M/ul (4.3-5.7); RDW 13.3 (10.5-15.0)
[2024-12-16 15:30] LABS: BILIRUBIN, URINE NEGATIVE (negative); BLOOD/HGB, URINE NEGATIVE (Negative); KETONE, URINE NEGATIVE (Negative); LEUK ESTERASE, URINE NEGATIVE (negative); NITRITE, URINE NEGATIVE (negative)
[2024-12-16 15:41] LABS: ALBUMIN 3.6 g/dL (3.4-5.0); ALBUMIN/GLOBULIN RATIO 0.92 (1.1-2.4); BILIRUBIN, TOTAL 1.2 ng/dL (0.2-1.0); BUN/CREATININE RATIO 13.41 (6.0-28.6); CALCIUM 9.9 mg/dL (8.5-10.1); CREATININE, SERUM 1.64 mg/dL (0.70-1.30); PROTEIN, TOTAL 7.5 g/dL (6.4-8.2)
[2024-12-16 17:30] VITALS: BP 155/99
== END 2024-12-16 17:33 | disposition home or self-care (01) ==
LOC: ED 13:24
PROVIDERS: Internal Medicine
DX: K86.89 Other specified diseases of pancreas (principal); I10 Essential (primary) hypertension; E78.5 Hyperlipidemia, unspecified; Z87.891 Personal history of nicotine dependence; Z88.8 Allergy status to other drugs, medicaments and biological substances; Z79.899 Other long term (current) drug therapy
CPT/HCPCS: 36415; 80053; 81003; 83690; 85025; 99284